=== PATIENT | female | born 1960 | race African-American/Black ===

== ENCOUNTER 2024-08-07 07:09 | Inpatient (IN) | payer MEDICARE, SELFPAY ==
[2024-08-07] VITALS (19 sets, daily range): BP systolic 80–106; BP diastolic 56–88; PULSE 93–115; RESP 12–22; TEMP 36.4–36.9; O2SAT 94–99; BMI 18.8
--- NOTE | 2024-08-07 | ECHO_ITS ---
Patient Info Name: Madison Youssef Age: 64 years : 1960 Gender: Female Ht: 70 in Wt: 131 lbs BSA: 1.70 m2 HR: 102 bpm BP: 93 / 70 mmHg Heart Rhythm: Tachycardia Technical Quality: Fair Exam Date: 08/07/2024 3:10 PM Exam Location: Echo Lab Patient Status: Inpatient Admit Date: 08/07/2024 Staff Ordering Physician: Kimberly Warren APRN Forensic Identification Specialist: Mary Ellen Ramos RDCS Attending Provider: Chaparro Oakley MD Referring Physician: Kelvin GERARD; Exam Type: CA echo doppler color flow Study Info Indications - Pulmonary embolis - SOB Complete two-dimensional, color flow and Doppler transthoracic echocardiogram is performed. Summary 1. Left ventricular chamber dimension is normal. 2. Left ventricular systolic function is normal, estimated at 60-65%. 3. There is moderately increased left ventricular wall thickness. 4. The left ventricular diastolic function is grade I diastolic dysfunction. 5. Right ventricular chamber dimension is normal. 6. Right ventricular systolic function is normal. 7. There is mild tricuspid valve regurgitation. 8. Left pleural effusion present. Left Ventricle Left ventricular chamber dimension is normal. Left ventricular systolic function is normal, estimated at 60-65%. There is moderately increased left ventricular wall thickness. The left ventricular diastolic function is grade I diastolic dysfunction. Right Ventricle Right ventricular chamber dimension is normal. Right ventricular systolic function is normal. Left Atria Left atrial chamber dimension is normal. Right Atria Right atrial chamber dimension is normal. Atrial Septum Intact interatrial septum visualized by color flow imaging. Aortic Valve The aortic valve is trileaflet. There is no aortic valve stenosis. There is no aortic valve regurgitation. Pulmonic Valve The pulmonic valve is not well visualized. Mitral Valve There is trace mitral valve regurgitation. Tricuspid Valve There is mild tricuspid valve regurgitation. Pericardium/Pleural Left pleural effusion present. There is no pericardial effusion. Inferior Vena Cava Normal inferior vena cava with >50% collapse upon inspiration consistent with normal right atrial pressure, 3 mmHg. Aorta The aortic root size at the sinus of Valsalva is normal. Left Ventricular Outflow Tract Name Value Normal LVOT 2D LVOT Diameter 1.9 cm LVOT Doppler LVOT Peak Gradient 3 mmHg LVOT Mean Gradient 2 mmHg LVOT VTI 16 cm LVOT VTI/AV VTI Ratio 1.0 LVOT Stroke Volume 46 ml LVOT CO 11.2 l/min LVOT CI 6.6 l/min/m2 Pulmonic Valve Name Value Normal PV Doppler PV Peak Gradient 2 mmHg Tricuspid Valve Name Value Normal TV Regurgitation Doppler TR Peak Velocity 282 cm/s TR Peak Gradient 32 mmHg Estimated PAP/RSVP RA Pressure 3 mmHg <=5 PA Systolic Pressure 35 mmHg <36 RV Systolic Pressure 35 mmHg <36 Aorta Name Value Normal Ascending Aorta Ao Root Diameter (MM) 3.1 cm Ao Root Diam Index (MM) 1.8 cm/m2 Aortic Valve Name Value Normal AV Doppler AV Peak Velocity 85 cm/s AV Peak Gradient 3 mmHg AV Mean Gradient 2 mmHg AV VTI 15 cm AV Area (Cont Eq VTI) 3.0 cm2 >=3.0 AV Area (Cont Eq Drew) 2.8 cm2 AV Regurgitation 2D LVOT Area 2.9 cm2 Ventricles Name Value Normal LV Dimensions 2D/MM IVS Diastolic Thickness (2D) 1.3 cm 0.6-1.0 IVS Diastole Thickness (MM) 3.1 cm 0.6-0.9 LVID Diastole (2D) 3.4 cm 3.8-5.2 LVIW Diastolic Thickness (2D) 1.1 cm 0.6-0.9 LVID Systole (2D) 2.6 cm 2.2-3.5 LVOT Diameter 1.9 cm LV Mass (2D Cubed) 127.58 g 67.00-162.00 LV Mass Index (2D Cubed) 75 g/m2 43-95 Relative Wall Thickness (2D) 0.67 LV Fractional Shortening/Ejection Fraction 2D/MM LV Fractional Shortening (2D) 24 % 27-45 LV EF (2D Teicheliezerz) 49 % 54-74 LV Diastolic Volume (4C MOD) 38 ml LV EF (4C MOD) 68 % LV Diastolic Volume (2C MOD) 31 ml LV EF (2C MOD) 64 % LV Diastolic Volume (BP MOD) 37 ml 46-106 LV Diastolic Volume Index (BP MOD) 22 ml/m2 29-61 LV Systolic Volume (BP MOD) 12 ml 14-42 LV Systolic Volume Index (BP MOD) 7 ml/m2 8-24 LV EF (BP MOD) 68 % 54-74 LV Diastolic Length (4C) 6.2 cm LV Systolic Length (4C) 4.7 cm LV Stroke Volume (4C MOD) 26 ml RV Dimensions 2D/MM RVID Diastole (2D) 3.6 cm 2.5-3.5 Atria Name Value Normal LA Dimensions LA Volume (4C A-L) 17 ml LA Volume (BP A-L) 21 ml RA Dimensions RA Area (4C) 10.8 cm2 <=18.0 Report Signatures
--- NOTE | ~2024-08-07 | US_ITS ---
BILATERAL LOWER EXTREMITY VENOUS ULTRASOUND Ordering provider: Kimberly Warren APRN History: . pe, rt leg pain, swelling . Comparison: None. FINDINGS: RIGHT LOWER EXTREMITY VEINS: --COMMON FEMORAL: Patent and free of thrombus. Normal compressibility, phasic flow and augmentation. --PROXIMAL SUPERFICIAL FEMORAL: Patent and free of thrombus. Normal compressibility, phasic flow and augmentation. --DISTAL SUPERFICIAL FEMORAL: Patent and free of thrombus. Normal compressibility, phasic flow and au gmentation. --POPLITEAL: Patent and free of thrombus. Normal compressibility, phasic flow and augmentation. --POSTERIOR TIBIAL: Thrombosed. --Peroneal: Thrombosed. LEFT LOWER EXTREMITY VEINS: --COMMON FEMORAL: Patent and free of thrombus. Normal compressibility, phasic flow and augmentation. --PROXIMAL SUPERFICIAL FEMORAL: Patent and free of thrombus. Normal compressibility, phasic flow and augmentation. --DISTAL SUPERFICIAL FEMORAL: Patent and free of thrombus. Normal compressibility, phasic flow and au gmentation. --POPLITEAL: Patent and free of thrombus. Normal compressibility, phasic flow and augmentation. --POSTERIOR TIBIAL: Thrombosed. --Peroneal: Thrombosis. IMPRESSION: Bilateral deep vein thrombosis. Reviewed, dictated and finalized at location A.
--- NOTE | ~2024-08-07 | XR_ITS ---
EXAMINATION: XR chest 1V portable DATE: 08/07/2024 08:08 INDICATION: Swelling. Cough. Dyspnea. TECHNIQUE: A single frontal view of the chest was obtained. COMPARISON: None. FINDINGS: There are lucencies in the lungs, consistent with emphysema. There are small pleural effusi ons. There are airspace opacities at the lung bases. No pneumothorax. The heart size is normal. IMPRESSION: 1. Airspace opacities at the lung bases, consistent with atelectasis versus pneumonia. 2. Small pleural effusions. 3. Emphysema. Reviewed, dictated and finalized at location B. IMPRESSION: 1. Airspace opacities at the lung bases, consistent with atelectasis versus pne umonia. 2. Small pleural effusions. 3. Emphysema.
--- NOTE | ~2024-08-07 | XR_ITS ---
XR abdomen gastric tube insert Ordering provider: Clotilde Lam MD History: . OG placement . Comparison: None. FINDINGS/impression: Nasogastric tube with the tip in the body of the stomach. The sidehole is near t o the gastroesophageal junction. Advancement by 3 cm is advised. Reviewed, dictated and finalized at location A.
--- NOTE | ~2024-08-07 | CT_ITS ---
EXAMINATION: CTA chest PE protocol DATE: 08/07/2024 10:00 INDICATION: Severe hypoxia. TECHNIQUE: Computed tomography angiography (CTA) of the chest was performed with 100 mL Omnipaque-350 intravenous contrast timed to evaluate the pulmonary arteries. Coronal maximum intensity projection 3D-reconstructions were created by the technologist. Automated exposure control and iterative reconst ruction technique were employed. The dose-length product was 152.14 mGy-cm. COMPARISON: Chest single view 08/07/2024 FINDINGS: There is moderate emphysema. There are small pleural effusions, right worse than left. Ther e is smooth septal thickening in the lungs, consistent with pulmonary edema. There are dependent airs pace opacities in the lungs with volume loss, likely atelectasis. There is a 5 mm stone in right uppe r lobe, likely benign. A calcified left lung nodule is consistent with old granulomatous disease. The heart size is normal. There are coronary artery calcifications. No pericardial effusion. There is a pulmonary embolus in right upper lobe. There is perihepatic ascites. There is mild chronic anterior w edging of multiple vertebral bodies. There is severe thoracic spondylosis. IMPRESSION: 1. Acute right upper lobe pulmonary embolus. I called this result to Dr. Pike. 2. Mild pulmonary edema with small pleural effusions. 3. Moderate emphysema. 4. Perihepatic ascites. Reviewed, dictated and finalized at location B.
--- NOTE | ~2024-08-07 | CT_ITS ---
CLINICAL INDICATION: Worsening hypoxia with known right upper lobe pulmonary embolus. COMPARISON: 08/07/2024. TECHNIQUE: Computed tomographic angiography (CTA) of the chest was performed, along with multiple con tiguous axial images of the abdomen and pelvis with 100 mL Omnipaque-350 intravenous contrast. The do se-length product was 621.45 mGy-cm. Maximum intensity projection 3D-reconstructions of the aorta and other arteries were constructed by the technologist on a separate workstation. FINDINGS/OBSERVATIONS: PULMONARY ARTERIES: Redemonstration of a filling defect within the posterior segmental branch of the right upper lobe pulmonary artery. The truncus anterior is patent. No additional filling defects are demonstrated. The main pulmonary artery is not enlarged. THORACIC AORTA: No aneurysmal dilatation or dissection is present. The great vessels are intact LUNGS: Redemonstration of bilateral pleural effusions, with interval increase of the right-sided pleu ral effusion, when compared with prior. Interval development of consolidation of the right lower lobe, with air bronchograms. Panlobular emphysematous disease is redemonstrated. Decreased lung volume within the right hemithorax (secondary to increased pleural effusion), availabl e for perfusion. MEDIASTINUM: No morphologically suspicious or pathologically enlarged lymph nodes are identified with in the mediastinum or bilateral axilla. BONES OF THE CHEST: No acute fracture. No significant degenerative disease. No lytic or blastic lesions. HEART: The heart is of normal size, without pericardial effusion. LIVER: Perihepatic fluid is now identified, increased from previous days examination. The liver is not enlarged measuring 17 cm in longitudinal dimension. GALLBLADDER AND BILIARY SYSTEM: Interval development of gallbladder distention, (not included on the previous examination) with calci fied layering stones PANCREAS: The pancreas enhances homogeneously without ductal dilatation. SPLEEN: The spleen enhances homogeneously and is not enlarged measuring 8 cm in longitudinal dimension. KIDNEYS: The bilateral kidneys enhance symmetrically without hydronephrosis or renal calculi. ADRENAL GLANDS: Unremarkable. GASTROINTESTINAL TRACT: Fecal stasis distending the rectum. VASCULATURE: No aneurysmal dilatation or significant stenosis. The inferior vena cava is slit like consistent with severe hypovolemia. LYMPH NODES: No pathologically enlarged or morphologically suspicious lymph nodes within the retroperitoneum or at the root of the mesentery. PELVIC STRUCTURES: The bladder is massively distended extending almost to the level of the umbilicus. Likely originating within the left hemipelvis is a fluid collection measuring 4.6 x 8.0 x 9.5 cm (ant erior to posterior x medial to lateral x cranial to caudal dimension). BODY WALL AND MUSCULOSKELETAL: Interval development of significant anasarca, when compared with previous days examination. Degenerat leigh disease within the lumbosacral spine. IMPRESSION: Worsening of the bilateral pleural effusions when compared with previous days examination. Stable pulmonary embolus. Interval development of consolidation of the entirety of the right middle and right lower lobes. Interval development of significant anasarca. Fluid collection originating within the left hemipelvis, of uncertain origin. Massive bladder distention for which urgent decompression is recommended. Cholelithiasis, as well as gallbladder distention. Reviewed, dictated and finalized at location A. IMPRESSION: Worsening of the bilateral pleural effusions when compared with previous days e xamination. Stable pulmonary embolus. Interval development of consolidation of the entirety of the right middle and r ight lower lobes. Interval development of significant anasarca. Fluid collection originating within the left hemipelvis, of uncertain origin. Massive bladder distention for which urgent decompression is recommended. Cholelithiasis, as well as gallbladder distention.
--- NOTE | 2024-08-07 07:14 | ECG_ITS ---
Test Date: 2024-08-07 07:17:06 Measurements Intervals [place] Rate: 102 P: 18 [place]: 122 QRS: -7 QRSD: 65 T: 0 QT: 317 QTc: 414 Interpretive Statements PROBABLE SINUS TACHYCARDIA LOW QRS VOLTAGE [QRS DEFLECTION < 0.5/1.0 mV IN LIMB/CHEST LEADS] PROBABLE ANTERIOR MYOCARDIAL INFARCTION , OF INDETERMINATE AGE [35 ms Q WAVE IN V3/V4] BASELINE ARTIFACT LIMITS INTERPRETATION No previous ECG available for comparison Electronically Signed On 08-08-2024 16:35:34 CDT by Alvaro Rodriguez M.D.
--- NOTE | 2024-08-07 07:16 | ED.SOB ---
HPI - SOB/Dyspnea General Chief Complaint: Shortness of Breath/Dyspnea Stated Complaint: edema Time Seen by Provider: 08/07/24 07:15 Source: patient and EMS Mode of arrival: EMS Limitations: no limitations History of Present Illness HPI Narrative: 64 years old female came from skilled nursing by ambulance because her chest x-ray this morning showed right pleural effusion. Patient is telling me that she been having intermittent coughing for long time. Currently she denies any fever, chills, nausea, vomiting, chest pain or shortness of breath Related Data Home Medications ?Medication ?Instructions ?Recorded ?Confirmed ?Last Taken ?Type acetaminophen 325 mg tablet (Aphen) 650 mg PO ONCE PRN fever or pain 08/07/24 08/07/24 Unknown History arginine (L-arginine) ea PO .3 x a day at meals wound to 08/07/24 Unknown History left posterior thigh aspirin 81 mg chewable tablet 81 mg PO DAILY 08/07/24 08/07/24 Unknown History (Children's Aspirin) carvedilol 6.25 mg tablet 6.25 mg PO BID 08/07/24 08/07/24 Unknown History cetirizine 10 mg capsule (All Day 10 mg PO DAILY 08/07/24 08/07/24 Unknown History Allergy (cetirizine)) folic acid 1 mg tablet 1 mg PO DAILY 08/07/24 08/07/24 Unknown History gabapentin 100 mg capsule 100 mg PO TID polyneuropathy 08/07/24 08/07/24 Unknown History hydrocodone 5 mg-acetaminophen 325 1 tablet PO Q4H PRN pain 08/07/24 08/07/24 Unknown History mg tablet ondansetron 4 mg disintegrating 4 mg PO Q6H PRN nausea/vomiting 08/07/24 08/07/24 Unknown History tablet Allergies Allergy/AdvReac Type Severity Reaction Status Date / Time No Known Allergies Allergy Verified 08/07/24 07:37 Review of Systems Review of Systems: All systems reviewed & are unremarkable except as noted in HPI and below Exam Narrative: General appearance: Well-developed, well-nourished Skin: Normal color, 2 decubitus ulcers at the back of the right thigh, with dressing on, wrinkled skin of the lower legs bilaterally indicating resolving previous edema Head: Normocephalic, nontraumatic Eyes: Clear conjunctiva ENT: Oropharynx normal, ears normal, nose normal Neck: Supple, nontender Chest and respiratory: Airway patent, no respiratory distress, no accessory muscle use Heart: Regular rate/rhythm Abdomen: Soft, nontender, no organomegaly, quiet bowel sounds Vascular: Normal peripheral pulses, normal capillary refill. Musculoskeletal: Normal range of motion, nontender back Neurologic: Alert and oriented ?3, [employer] is normal as tested, no gross motor deficit Course Vital Signs Vital signs: Vital Signs Pulse Rate 106 H 08/07/24 07:15 Respiratory Rate 19 08/07/24 07:15 Temperature 36.4 C 08/07/24 10:04 Pulse Rate 105 H 08/07/24 10:04 Respiratory Rate 14 08/07/24 10:04 Blood Pressure 105/79 08/07/24 10:04 Pulse Oximetry 94 08/07/24 10:04 Oxygen Delivery Room Air 08/07/24 09:05 MDM - SOB/Dyspnea MDM Narrative Medical decision making narrative: patient referred to the emergency room from skilled nursing because chest x-ray this morning showed small right pleural effusion Patient is asymptomatic. Vital signs showing heart rate of 103 otherwise within normal limit Physical examination showing decubitus ulcers the back of the right thigh otherwise insignificant Differential diagnosis include pleural effusion secondary to CHF, pneumonia, PULMONARY EMBOLISM, chronic specially patient never been to our facility before BLOOD WORKUP TODAY INCLUDES CBC, CMP, BNP, TROPONIN SHOWED HEMOGLOBIN 9.9, SODIUM 133, ANION GAP -1, CALCIUM 7.2, ALKALINE PHOSPHATASE IS 157, BNP 989 TOTAL PROTEIN 5.0, ALBUMIN 1.6 CHEST X-RAY ATELECTASIS VERSUS PNEUMONIA, PLEURAL EFFUSION, CTA PULMONARY SHOWED RIGHT UPPER LOBE PULMONARY EMBOLISM DIAGNOSIS CHF, PULMONARY EMBOLISM, ACUTE HYPOXIC RESPIRATORY FAILURE Differential Diagnosis Differential diagnosis: Likely other (As above) Medical Records Attestation: I reviewed the patient's medical records. Lab Data Attestation: I reviewed the patient's lab results. 08/07/24 07:26 08/07/24 07:26 Labs: Lab Results 08/07/24 08/07/24 Range/Units 07:26 08:12 WBC 6.9 (4.5-10.0) K/mm3 RBC 2.85 L (4.2-5.4) M/mm3 Hgb 9.9 L (12.0-15.0) g/dL Hct 28.2 L (37.0-47.0) % MCV 98.9 (80-100) fl MCH 34.7 H (26-34) pg MCHC 35.1 (32-36) g/dl RDW 13.7 (11.5-14.5) % Plt Count 324 (150-375) k/mm3 MPV 9.3 (7.4-10.4) fl Immature Gran % (Auto) 0.4 (0-0.5) % Neut % (Auto) 48.9 (45.5-73.1) % Lymph % (Auto) 40.3 (18.3-44.2) % [place] % (Auto) 8.4 (2.6-8.5) % Eos % (Auto) 1.7 (0-4.4) % Baso % (Auto) 0.3 (0.2-1.2) % Lymph # (Auto) 2.78 (0.9-3.2) K/mm3 [place] # (Auto) 0.6 (0.1-0.6) K/mm3 Eos # (Auto) 0.1 (0-0.3) K/mm3 Baso # (Auto) 0.0 (0.0-0.1) K/mm3 Abs Immat Gran (auto) 0.03 (0.00-0.031) K/mm3 Absolute Neuts (auto) 3.4 (1.3-6.7) K/mm3 Absolute Nucleated RBC 0.000 (0.0-0.012) K/mm3 Nucleated RBC % 0.0 (0.0-0.2) % PT 15.8 H (11.1-14.7) Seconds INR 1.2 APTT 38.5 H (22.3-36.8) Seconds Methemoglobin 0.2 (0-1.5) %THb Sodium 133 L (137-145) mmol/L Potassium 3.6 (3.4-5.0) mmol/L Chloride 104 (98-107) mmol/L Carbon Dioxide 30 (22-30) mmol/L Anion Gap -1 L (4-12) mmol/L BUN 10 (7-17) mg/dL Creatinine 0.35 L (0.7-1.0) mg/dL Estim Creat Clear Calc 158 ml/min Estimated GFR > 60 (59 - ) Glucose 89 (65-110) mg/dL Calcium 7.2 L (8.4-10.2) mg/dL Magnesium 2.1 (1.6-2.3) mg/dL Total Bilirubin 0.8 (0.2-1.3) mg/dL AST 26 (14-36) U/L ALT 28 (6-35) U/L Alkaline Phosphatase 157 H (38-126) U/L Troponin I < 0.012 (0.000-0.034) ng/mL NT-Pro-B Natriuret Pep 989 H (19.9-100) pg/mL Total Protein 5.0 L (6.3-8.2) g/dL Albumin 1.6 L (3.5-5.1) g/dL ABG Data ABG results: 08/07/24 08/07/24 07:45 08:12 Puncture Site Left radial Right radial ABG pH 7.513 H* 7.538 H* ABG pCO2 27.7 L 29.8 L ABG pO2 48.1 L* 48.9 L* ABG PO2/FiO2 Ratio 2.29 2.33 ABG HCO3 21.8 L 24.8 ABG O2 Saturation 88.4 L 89.5 L ABG O2 Content 11.2 L 12.0 L ABG Base Excess -0.5 2.6 A-a Gradient 68.5 65.1 Oxyhemoglobin 82.7 L* 84.5 L* Carboxyhemoglobin 0.6 Reduced Hemoglobin 14.7 H Total Hemoglobin 9.6 L 10.1 L O2 Delivery Device Room air Room air O2 Liters/Min Not Reportable Not Reportable FiO2 21 21 Imaging Data Radiologist's impression: Impressions Chest X-Ray 08/07/24 08:09 IMPRESSION: 1. Airspace opacities at the lung bases, consistent with atelectasis versus pneumonia. 2. Small pleural effusions. 3. Emphysema. Chest CTA 08/07/24 10:03 IMPRESSION: 1. Acute right upper lobe pulmonary embolus. I called this result to Dr. Pike. 2. Mild pulmonary edema with small pleural effusions. 3. Moderate emphysema. 4. Perihepatic ascites. ECG Data EKG #1: Attestation: I personally reviewed and interpreted this ECG as follows: ECG completion date: 08/07/24 ECG completion time: 07:19 Interpretation: Sinus tachycardia at 1:00 a.m. 2 beats per minute with occasional PVCs, low QRS voltage, poor R-wave progression, probable anterior myocardial infarction of indeterminate age, abnormal EKG, no old EKG available for comparison Critical Care Time Critical Care Time Critical Care Time: No Discharge Plan Discharge Clinical Impression: Pulmonary embolism, Congestive heart failure, Acute hypoxic respiratory failure Patient Disposition: Still a Patient Condition: Stable Patient Language: Portuguese Prescriptions: No Action acetaminophen [Aphen] 325 mg tablet 650 mg PO ONCE PRN (Reason: fever or pain) arginine (L-arginine) Powder PO .3 x a day at meals aspirin [Children's Aspirin] 81 mg tablet,chewable 81 mg PO DAILY carvedilol 6.25 mg tablet 6.25 mg PO BID Rx Instructions: must administer with a meal/food All Day Allergy (cetirizine) 10 mg capsule 10 mg PO DAILY folic acid 1 mg tablet 1 mg PO DAILY gabapentin 100 mg capsule 100 mg PO TID hydrocodone-acetaminophen 5-325 mg tablet 1 tablet PO Q4H PRN (Reason: pain) ondansetron 4 mg tablet,disintegrating 4 mg PO Q6H PRN (Reason: nausea/vomiting) Follow-up/Referrals: UNKNOWN,DOCTOR [Primary Care Provider] -
[2024-08-07 07:31] LABS: Basophils Percent Auto 0.3 % (0.2-1.2); Eosinophils Absolute Auto 0.1 K/mm3 (0-0.3); Eosinophils Percent Auto 1.7 % (0-4.4); Hematocrit 28.2 % (37.0-47.0); Hemoglobin 9.9 g/dL (12.0-15.0); Immature Granulocyte Absolute 0.03 K/mm3 (0.00-0.031); Immature Granulocyte Percent A 0.4 % (0-0.5); Lymphocytes Absolute Auto 2.78 K/mm3 (0.9-3.2); Lymphocytes Percent Auto 40.3 % (18.3-44.2); Mean Corpuscular HGB Conc 35.1 g/dl (32-36); Mean Corpuscular Hemoglobin 34.7 pg (26-34); Mean Corpuscular Volume 98.9 fl (80-100); Mean Platelet Volume 9.3 fl (7.4-10.4); Monocytes Absolute Auto 0.6 K/mm3 (0.1-0.6); Monocytes Percent Auto 8.4 % (2.6-8.5); Neutrophils Absolute Auto 3.4 K/mm3 (1.3-6.7); Neutrophils Percent Auto 48.9 % (45.5-73.1); Platelet Count Result 324 k/mm3 (150-375); Red Blood Count 2.85 M/mm3 (4.2-5.4); Red Cell Distribution Width 13.7 % (11.5-14.5); White Blood Count 6.9 K/mm3 (4.5-10.0)
--- OUTSIDE RECORDS SUMMARY | 2024-08-07 07:32 | XMS_ITS | Clinical Summary ---
Author Organization [facility] Address [address] [place] [id number] Care Team Providers Care Punch Machine Operator Name Role Phone Ashley Guzman MD Primary Care Provider [phone] Allergies No known active allergies Medications carvedilol (COREG) 6.25 MG tabletIndicati ons:Hypertensi on Take 1 tablet (6.25 mg total) by mouth 2 (two) times daily. Indications: High Blood Pressure 07/27/19 23 Active acetaminophen (TYLENOL) 325 MG tabletIndicati ons:Pain Take 2 tablets (650 mg total) by mouth every 4 (four) hours as needed for Pain. Indications: Pain 10/28/19 23 Active aspirin 81 MG chewable tabletIndicati ons:heart health Chew 1 tablet (81 mg total) by mouth daily. Indications: heart health 10/28/19 23 Active gabapentin (NEURONTIN) 100 MG capsule Take 1 capsule (100 mg total) by mouth 3 (three) times daily. 05/26/20 24 Active folic acid (FOLVITE) 1 MG tablet Take 1 tablet (1 mg total) by mouth daily. 30 tablet 07/17/19 25 Active HYDROcodone-ac etaminophen (NORCO) 5-325 MG tabletIndicati ons:Acute Pain < 3 Day Supply Take 1 tablet by mouth every 4 (four) hours as needed. Indications: Acute Pain < 3 Day Supply 10 tablet 07/17/19 25 Active furosemide (LASIX) 20 MG tabletIndicati ons:Diuretic Therapy Take 1 tablet (20 mg total) by mouth daily. Indications: Treatment with Diuretic Therapy 10/11/19 23 025 Discontinu ed(Stop Taking at Discharge) potassium chloride CR (K-TAB) 10 MEQ Tab CR tabletIndicati ons:Potass Supplement or Potass-Sparing Diuretic Tx (Inactive) Take 1 tablet by mouth daily. Indications: Potassium Supplement or Potassium-Sparing Diuretic Therapy 10/11/19 Discontinu ed(Error) SODIUM CHLORIDE ORIndications: Hyponatremia Take 1 g by mouth 2 (two) times a day. Indications: Low Concentration of Sodium in the Blood 11/14/19 Discontinu ed(Error) venlafaxine XR (EFFEXOR XR) 37.5 MG 24 hr capsuleIndicat ions:Depressed Mood Take 37.5 mg by mouth daily. Indications: Lowered Mood 08/08/19 025 Discontinu ed(Error) mupirocin (BACTROBAN) 2 % ointmentIndica tions:Wound Care Apply 1 each topically daily. Indications: Wound Care 12/12/19 025 Discontinu ed(Error) HYDROcodone-ac etaminophen (NORCO) 5-325 MG tabletIndicati ons:Acute Pain < 7 Day Supply Take 1 tablet by mouth every 4 (four) hours as needed for Pain. Indications: Acute Pain < 7 Day Supply 01/12/20 025 Discontinu ed(Error) PROMETHAZINE-D M ORIndications: Cough Take 5 mLs by mouth every 4 (four) hours as needed (cough). Indications: Cough 01/12/20 025 Discontinu ed(Error) polyethylene glycol (GLYCOLAX) packet Take 240 mLs (17 g total) by mouth daily for 14 days. Dissolve powder in 240 mL water 14 each 07/17/19 25 Active Problems Problem Noted Date Diagnosed Date UTI (urinary tract infection) 07/14/2024 Generalized weakness 07/12/2024 Hyponatremia 10/25/2022 Encounters Date Type Department Care Team Description 07/12/2024 12:56 PM HOSPITAL SUPERVISOR - 07/17/2024 1:59 PM HOSPITAL SUPERVISOR Hospital Encounter [facility] Med/Surg [address] [place] [address] Baeza, Delta N, PA BrazeltonPrincess PA Alexander, Kaci M, DO Martens, Jennifer L, NP Littlejohn, Mary C, Dar Glover MD Leg Pain Discharge Disposition: Senior Living Facility 07/12/2024 Travel from Last 3 Months Social History Tobacco Use Types Packs/Day Years Used Date Smoking Tobacco: Every Day Cigarettes Smokeless Tobacco: Never Alcohol Use Standard Drinks/Week Comments Yes 0 (1 standard drink = 0.6 oz pur e alcohol) <1/week OASIS D0700: Social Isolation Answer Da te Recorded Frequency of experiencing loneliness or isolatio n Never 02/22/2023 OASIS A1250: Transportation Answer Date Recorded Lack of Transportation (Medical) No 02/22/2023 Lack of Transportation (Non-Medical) No 02/22/2023 Patient Unable or Declines to Respond No 02/22/2023 OASIS B1300: Health Literacy Answer Viraj e Recorded Frequency of needing help to read materials from doctor or pharmacy Rarely 02/22/2023 [facility] Utilities Answer Date Recorded In the past 12 months has [facility] [employer], oil, or water [employer] threatened to shut off services in your home? No 07/12/2024 Humiliation, Afraid, Rape, and Kick questionnair e Answer Date Recorded Within the last year, have y ou been afraid of your partner or ex-partner? No 07/12/2024 Within the last year, have y ou been humiliated or emotionally abused in other ways by your partner or ex-partner? No Within the last year, have y ou been kicked, hit, slapped, or otherwise physically hurt by your partner or ex-partner? No 07/12/2024 Within the last year, have y ou been raped or forced to have any kind of sexual activity by your partner or ex-partner? No 07/12/2024 Overall Financial Resource Strain (CARDIA) Answe r Date Recorded How hard is it for you to pa y for the very basics like food, housing, medical care, and heating? Not hard at all 07/12/2024 Hunger Vital Sign Answer Date Recorded Within the past 12 months, y ou worried that your food would run out before you got the money to buy more. Never true 07/12/19 25 Within the past 12 months, t he food you bought just didn't last and you didn't have money to get more. Never true 07/12/2024 PRAPARE - Transportation Answer Date Re corded In the past 12 months, has l ack of transportation kept you from medical appointments or from getting medications? No 06/28 In the past 12 months, has l ack of transportation kept you from meetings, work, or from getting things needed for daily living? No 07/12/2024 Housing Stability Vital Sign Answer Viraj e Recorded In the last 12 months, was t here a time when you were not able to pay the mortgage or rent on time? No 07/12/2024 In the past 12 months, how m any times have you moved where you were living? 0 07/12/2024 At any time in the past 12 m [facility], were you homeless or living in a [facility] (including now)? No 07/12/2024 Comments No Sex and Gender Information Value Date Recorded Sex Assigned at Female 07/12/2024 1:09 PM HOSPITAL SUPERVISOR Legal Sex Female 2:41 PM CDT Gender Identity Not on file Sexual Orientation Not on file Last Filed Vital Signs Vital Sign Reading Time Taken Comments Blood Pressure 91/60 07/17/2024 11:56 AM HOSPITAL SUPERVISOR Pulse 60 07/17/2024 11:56 AM HOSPITAL SUPERVISOR Temperature 36.8 C (98.2 F) 07/17/2024 11:56 AM HOSPITAL SUPERVISOR Respiratory Rate 18 07/17/2024 11:56 AM HOSPITAL SUPERVISOR Oxygen Saturation 98% 07/17/2024 11:56 AM HOSPITAL SUPERVISOR Inhaled Oxygen Concentration - - Weight 61.9 kg (136 lb 7.4 oz) 07/17/2024 3:56 A M HOSPITAL SUPERVISOR Height 177.8 cm (5' 10 ) 07/12/2024 1:05 PM HOSPITAL SUPERVISOR Body Mass Index 19.58 07/12/2024 1:05 PM HOSPITAL SUPERVISOR Plan of Treatment Health Maintenance Due Date Last Done Comments Colorectal Cancer Screening Colonoscopy (10 Years) 1960 Hepatitis C 02/28/1976 DTaP, Tdap and Td Vaccines (1 - Tdap) 1977 Mammogram Screening 1998 Zoster Vaccines (1 of 2) 02/28/2008 Annual Medicare Wellness Visit 2023 Dexa Scan (General) 2023 COVID-19 Vaccine ( season) 2024 01/29/2021, 01/08/2021 RSV Immunization or 60+ Years (1 - 1-dose 75+ series) 2033 Pneumococcal Vaccine: 65+ Years Completed 08/07/2022, 07/26/2016 Influenza Adult Completed 04/18/2024, 07/26, 06/04/2018, Additional history exists Meningococcal B Vaccine Aged Out No l onger eligible based on patient's age to complete this topic Meningococcal Vaccine Aged Out No tiff jose eligible based on patient's age to complete this topic RSV Immunizations Under 20 Months Aged Out No longer eligible based on patient's age to complete this topic Goals Goal Patient Goal Type Associated Problems Recent Progress Patient-Stated? 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 Procedure Name Priority Date/Time Associated Diagnosis Comments RESPIRATORY PCR PANEL 2 Routine 07/17/2024 10:28 AM HOSPITAL SUPERVISOR CBC W/DIFF AUTOMATED STAT 07/17/2024 9:31 AM HOSPITAL SUPERVISOR FREE T3 Routine 07/16/2024 11:39 AM HOSPITAL SUPERVISOR HEMOGLOBIN, GLYCOSYLATED Routine 07/16/2024 11:39 AM HOSPITAL SUPERVISOR CBC W/DIFF AUTOMATED Routine 07/16/2024 11:39 AM HOSPITAL SUPERVISOR BASIC METABOLIC PANEL Routine 07/16/2024 11:39 AM HOSPITAL SUPERVISOR BASIC METABOLIC PANEL Routine 07/14/2024 11:45 AM HOSPITAL SUPERVISOR CBC W/DIFF AUTOMATED Routine 07/14/2024 11:45 AM HOSPITAL SUPERVISOR USV MEHDI DUPLEX LOW EXT ANGELITA STAT 07/14/2024 9:46 AM HOSPITAL SUPERVISOR TYPE & SCREEN Routine 07/13/2024 10:27 AM HOSPITAL SUPERVISOR TROPONIN, QUANT Routine 07/13/2024 10:27 AM HOSPITAL SUPERVISOR RETICULOCYTE CT, AUTO Routine 07/13/2024 10:27 AM HOSPITAL SUPERVISOR FERRITIN Routine 07/13/2024 10:27 AM HOSPITAL SUPERVISOR IRON SAT PANEL (IRON,IBC,%SAT) Routine 07/13/2024 10:27 AM HOSPITAL SUPERVISOR FOLIC ACID SERUM Routine 07/13/2024 10:2 7 AM HOSPITAL SUPERVISOR VITAMIN B-12 Routine 07/13/2024 10:27 AM HOSPITAL SUPERVISOR COMPREHENSIVE METABOLIC PANEL Routine 07/13/2024 10:27 AM HOSPITAL SUPERVISOR CBC W/DIFF AUTOMATED Routine 07/13/2024 10:27 AM HOSPITAL SUPERVISOR CALCIUM, IONIZED BG Routine 07/13/2024 1 :07 AM HOSPITAL SUPERVISOR OSMOLALITY, BLOOD STAT 07/13/2024 12: 46 AM HOSPITAL SUPERVISOR D-DIMER, QUANTITATIVE Routine 07/12/2024 11:40 PM HOSPITAL SUPERVISOR THYROXINE, FREE (FT4) STAT 07/12/2024 11:40 PM HOSPITAL SUPERVISOR TROPONIN, QUANT TIMED 07/12/2024 11:40 PM HOSPITAL SUPERVISOR TSH W/REFLEX STAT 07/12/2024 11:40 PM HOSPITAL SUPERVISOR CK (CPK) STAT 07/12/2024 11:40 PM HOSPITAL SUPERVISOR PHOSPHORUS, INORGANIC PHOSPHATE STAT 07/12/2024 11:40 PM HOSPITAL SUPERVISOR MAGNESIUM STAT 07/12/2024 11:40 PM HOSPITAL SUPERVISOR RESPIRATORY PCR PANEL 2 STAT 07/12/2024 8:[address] HEAD WO CON STAT 07/12/2024 6:08 PM HOSPITAL SUPERVISOR URINE BACTERIA CULTURE Routine 3:21 PM HOSPITAL SUPERVISOR SODIUM URINE RANDOM Routine 07/12/2024 3 :21 PM HOSPITAL SUPERVISOR OSMOLALITY, URINE Routine 07/12/2024 3:2 1 PM HOSPITAL SUPERVISOR HC URINALYSIS AUTO W/O MICRO STAT 07/12/2024 3:21 PM HOSPITAL SUPERVISOR TROPONIN, QUANT STAT 07/12/2024 2:18 PM HOSPITAL SUPERVISOR PRO-BRAIN NATRIURETIC PEPTIDE STAT 07/12/2024 2:18 PM HOSPITAL SUPERVISOR COMPREHENSIVE METABOLIC PANEL STAT 07/12/2024 2:18 PM HOSPITAL SUPERVISOR ECG 12-LEAD Routine 07/12/2024 2:06 PM HOSPITAL SUPERVISOR XR CHEST PORTABLE STAT 07/12/2024 1:5 2 PM HOSPITAL SUPERVISOR CBC W/DIFF AUTOMATED STAT 07/12/2024 1:28 PM HOSPITAL SUPERVISOR POCT GLUCOSE - CARROLL DOCKED DEVICE Routine 07/12/2024 12:56 PM HOSPITAL SUPERVISOR from Last 3 Months Results * RESPIRATORY PCR PANEL 2 (07/17/2024 10:28 AM HOSPITAL SUPERVISOR) Only the most recent of2 resultswithin the time period is included. ADENOVIRUS PCR (RESP) NOT DETECTED NOT DETECTED 07/17/2024 12:25 PM HOSPITAL SUPERVISOR [facility] CORONAVIRUS 229E PCR (RESP) NOT DETECTED NOT DETECTED 07/17/2024 12:25 PM HOSPITAL SUPERVISOR [facility] CORONAVIRUS HKU1 PCR (RESP) NOT DETECTED NOT DETECTED 07/17/2024 12:25 PM HOSPITAL SUPERVISOR [facility] CORONAVIRUS NL63 PCR (RESP) NOT DETECTED NOT DETECTED 07/17/2024 12:25 PM HOSPITAL SUPERVISOR [facility] CORONAVIRUS OC43 PCR (RESP) NOT DETECTED NOT DETECTED 07/17/2024 12:25 PM [facility] METAPNEUMOVIRUS PCR (RESP) NOT DETECTED NOT DETECTED 07/17/2024 12:25 PM [facility] RHINOVIRUS/ENTEROV IRUS PCR (RESP) NOT DETECTED NOT DETECTED 07/17/2024 12:25 PM HOSPITAL SUPERVISOR [facility] INFLUENZA A PCR (RESP) NOT DETECTED NOT DETECTED 07/17/2024 12:25 PM [facility] INFLUENZA B PCR (RESP) NOT DETECTED NOT DETECTED 07/17/2024 12:25 PM [facility] PARAINFLUENZA 1 PCR (RESP) NOT DETECTED NOT DETECTED 07/17/2024 12:25 PM [facility] PARAINFLUENZA 2 PCR (RESP) NOT DETECTED NOT DETECTED 07/17/2024 12:25 PM [facility] PARAINFLUENZA 3 PCR (RESP) NOT DETECTED NOT DETECTED 07/17/2024 12:25 PM [facility] PARAINFLUENZA 4 PCR (RESP) NOT DETECTED NOT DETECTED 07/17/2024 12:25 PM [facility] RSV PCR (RESP) NOT DETECTED NOT DETECTED 07/17/2024 12:25 PM [facility] B PARAPERTUSIS PCR (RESP) NOT DETECTED NOT DETECTED 07/17/2024 12:25 PM HOSPITAL SUPERVISOR [facility] BORDETELLA PERTUSSIS PCR (RESP) NOT DETECTED NOT DETECTED 07/17/2024 12:25 PM [facility] CHLAMYDOPHILA PNEUMONIAE PCR (RESP) NOT DETECTED NOT DETECTED 07/17/2024 12:25 PM [facility] MYCOPLASMA PNEUMONIAE PCR (RESP) NOT DETECTED NOT DETECTED 07/17/2024 12:25 PM HOSPITAL SUPERVISOR [facility] CORONAVIRUS SARS COV 2 PCR (RESP) NOT DETECTED NOT DETECTED 07/17/2024 12:25 PM [facility] NASOPHARYNGEAL SWAB / Unknown 07/17/2024 10:28 AM HOSPITAL SUPERVISOR Denise TEE MICROBIOLOGY - GENERAL OR DERABLES Final Result [facility] [address] [place] [address], [place] [phone] * (ABNORMAL) CBC W/DIFF AUTOMATED (07/17/2024 9:31 AM HOSPITAL SUPERVISOR) Only the most recent of5 resultswithin the time period is included. WBC 6.13 4.5 - 11.0 x10'3/uL 07/17/2024 9:58 AM [facility] RBC 2.63(L) 4.20 - 5.40 x10'6/uL 07/17/2024 9:58 AM [facility] HGB 9.4(L) 12.0 - 16.0 G/DL 07/17/2024 9:58 AM [facility] HCT 26.7(L) 38.0 - 48.0 % 07/17/2024 9:58 AM [facility] MCV 101.5(H) 81.0 - 99.0 FL 07/17/2024 9:58 AM [facility] MCH 35.7(H) 27.0 - 31.0 PG 07/17/2024 9:58 AM [facility] MCHC 35.2 32.0 - 36.0 G/DL 07/17/2024 9:58 AM [facility] RDW 15.0(H) 11.5 - 14.5 % 07/17/2024 9:58 AM [facility] PLT 252 130 - 400 x10'3/uL 07/17/2024 9:58 AM [facility] MPV 9.6 9.3 - 12.2 FL 07/17/2024 9:58 AM [facility] DIFFERENTIAL TYPE AUTOMATED DIFFERENTIAL 07/17/2024 9:58 AM [facility] NEUTROPHILS % 65.5 % 07/17/2024 9:58 AM [facility] LYMPHOCYTES % 25.1 % 07/17/2024 9:58 AM [facility] MONOCYTES % 8.6 % 07/17/2024 9:58 AM [facility] EOSINOPHILS 0.3 % 07/17/2024 9:58 AM [facility] BASOPHILS 0.2 % 07/17/2024 9:58 AM [facility] IMMATURE GRANS % 0.3 % 07/17/19 9:58 AM [facility] ABS. NEUTROPHILS 4.01 1.80 - 7.70 x10'3/uL 07/17/2024 9:58 AM [facility] ABS. LYMPHOCYTES 1.54 1.00 - 4.80 x10'3/uL 07/17/2024 9:58 AM [facility] ABS. MONOCYTES 0.53 0.24 - 0.86 x10'3/uL 07/17/2024 9:58 AM [facility] ABS. EOSINOPHILS 0.02(L) 0.04 - 0.36 x10'3/uL 07/17/2024 9:58 AM [facility] ABS. BASOPHILS 0.01 0.01 - 0.08 x10'3/uL 07/17/2024 9:58 AM HOSPITAL SUPERVISOR [facility] ABS. IMMATURE GRANULOCYTES 0.02 0.00 - 0.49 x10'3/uL 07/17/2024 9:58 AM HOSPITAL SUPERVISOR [facility] 07/17/2024 9:31 AM HOSPITAL SUPERVISOR Denise Hernandezjohn [facility] Final Res ult [facility] [address] [place] [address], [place] [phone] * HEMOGLOBIN, GLYCOSYLATED (07/16/2024 11:39 AM HOSPITAL SUPERVISOR) HGB A1C 4.3 <5.7 % 07/18/2024 11:54 AM HOSPITAL SUPERVISOR [facility] Comment: No variants detected ADA GUIDELINES 5.7-6.4% INCREASED RISK FOR FUTURE DIABETES > OR = 6.5% DIABETES DIABETIC GOAL <7.0% ADDITIONAL ACTION SUGGESTED >8.0% National Glycohemoglobin Standardization Program (NGSP) [place] [address] ESTIMATED AVG GLUCOSE 77 mg/dL 07/18/2024 11:54 AM HOSPITAL SUPERVISOR [facility] 07/16/2024 11:3 9 AM HOSPITAL SUPERVISOR Denise Craven Donavan [facility] Final Res ult [facility] [address] [place] [address], [place] [phone] * (ABNORMAL) FREE T3 (07/16/2024 11:39 AM HOSPITAL SUPERVISOR) FREE T3 0.3(L) 2.18 - 3.98 PG/ML 07/16/2024 4:29 PM HOSPITAL SUPERVISOR [facility] 07/16/2024 11:3 9 AM HOSPITAL SUPERVISOR us Denise Go [facility] Final Res ult [facility] () [facility] [address] [place] [address], [place] [phone] * (ABNORMAL) BASIC METABOLIC PANEL (07/16/2024 11:39 AM HOSPITAL SUPERVISOR) Only the most recent of2 resultswithin the time period is included. GLUCOSE 107(H) 70 - 99 MG/DL 07/16/2024 12:32 PM HOSPITAL SUPERVISOR [facility] BUN 3(L) 7 - 18 MG/DL 07/16/2024 12:32 PM [facility] CREATININE S/P/B 0.44(L) 0.55 - 1.02 MG/DL 07/16/2024 12:32 PM HOSPITAL SUPERVISOR [facility] SODIUM S/P/B 133(L) 136 - 145 MMOL/L 07/16/2024 12:32 PM [facility] POTASSIUM S/P/B 4.0 3.5 - 5.1 MMOL/L 07/16/2024 12:32 PM [facility] CHLORIDE S/P/B 105 97 - 115 MMOL/L 07/16/2024 12:32 PM [facility] CO2 24.2 21 - 32 MMOL/L 07/16/2024 12:32 PM [facility] CALCIUM S/P/B 7.2(L) 8.5 - 10.1 MG/DL 07/16/2024 12:32 PM [facility] ANION GAP 3.8 2 - 10 MMOL/L 07/16/2024 12:32 PM [facility] BUN CREATININE RATIO 6.8 6 - 26 07/16/2024 12:32 PM HOSPITAL SUPERVISOR [facility] GFR ESTIMATE >90 >90 ML/MIN/1.7 3 M2 07/16/2024 12:32 PM HOSPITAL SUPERVISOR [facility] Comment: NOTE: eGFR is not calculated for patients <18 years of age or gender unknown. This is an estimated GFR calculation using the new CKD EPI creatinine equation without race and so does not require a correction factor for race. This estimated GFR should not be used for calculating drug doses. 07/16/2024 11:3 9 AM HOSPITAL SUPERVISOR Denise MAYNARDNP LABORATORY Final Res ult [facility] [address] [place] [address], * USV MEHDI DUPLEX LOW EXT ANGELITA (07/14/2024 9:46 AM HOSPITAL SUPERVISOR) Anatomical Region Laterality Modality Extremity Vascular Ultraso und 07/14/2024 9:20 AM HOSPITAL SUPERVISOR Narrative 07/16/2024 8:38 PM HOSPITAL SUPERVISOR VENOUS DUPLEX IMAGING BILATERAL LOWER EXTREMITY VASCULAR LAB Pat.Name: HAYLEE NIÑO Pat.ID: [id number] .Date: 07/14/2024 Refer.MD: Ashley Guzman Exam Time: 9:20:00 AM Study Type:GUICHO VS Venous Duplex Legs ANGELITA Age: 10 1960,64Y Sex: F Sonogrphr: Latrice Philippe, T Pat. Stat.:Inpatient Room: 309 History / Clinical:Bilateral leg weakness and swelling up to the mid thighs. Bed sores to her bottom. Unable to bear weight on her legs. No prior DVT. Procedures: Camargo scale, Color Doppler imaging, Doppler Spectral Analysis Race: B ++++++++++++++++++++++++++++++++++++ SUMMARY: ++++++++++++++++++++++++++++++++++++ Right leg: There are NO apparent, deep or superficial vein, ACUTE character venous filling defects visualized in the femoral, popliteal, deep calf or proximal saphenous veins. Resting venous flow is normal phasic proximally. Left leg: There are NO apparent, deep or superficial vein, ACUTE character venous filling defects visualized in the femoral, popliteal, deep calf or proximal saphenous veins. Resting venous flow is normal phasic proximally. Incidental finding: There is monophasic flow in the right popliteal artery distally. There is multiphasic flow in the left popliteal artery distally. There are enlarged lymph nodes visualized in the right groin. CONCLUSION: No evidence of deep vein thrombosis of the bilateral lower extremities. <Electronic Signature> 07/16/2024 08:38 PM Shay Johnson M.D. Procedure Note Shay Johnson MD - 07/16/2024 VENOUS DUPLEX IMAGING BILATERAL LOWER EXTREMITY VASCULAR LAB Pat.Name: HAYLEE NIÑO Pat.ID: [id number] .Date: 07/14/2024 Refer.MD: Ashley Guzman Exam Time: 9:20:00 AM Study Type:GUICHO VS Venous Duplex Legs ANGELITA Age: 10 1960,64Y Sex: F Sonogrphr: Latrice Philippe RVT Pat. Stat.:Inpatient Room: 309 History / Clinical:Bilateral leg weakness and swelling up to the mid thighs. Bed sores to her bottom. Unable to bear weight on her legs. No prior DVT. Procedures: Camargo scale, Color Doppler imaging, Doppler Spectral Analysis Race: B ++++++++++++++++++++++++++++++++++++ SUMMARY: ++++++++++++++++++++++++++++++++++++ Right leg: There are NO apparent, deep or superficial vein, ACUTE character venous filling defects visualized in the femoral, popliteal, deep calf or proximal saphenous veins. Resting venous flow is normal phasic proximally. Left leg: There are NO apparent, deep or superficial vein, ACUTE character venous filling defects visualized in the femoral, popliteal, deep calf or proximal saphenous veins. Resting venous flow is normal phasic proximally. Incidental finding: There is monophasic flow in the right popliteal artery distally. There is multiphasic flow in the left popliteal artery distally. There are enlarged lymph nodes visualized in the right groin. CONCLUSION: No evidence of deep vein thrombosis of the bilateral lower extremities. <Electronic Signature> 07/16/2024 08:38 PM Shay Johnson M.D. Mary Lou Shi APRN [place] [facility] Final Resul t * TYPE & SCREEN (07/13/2024 10:27 AM HOSPITAL SUPERVISOR) ABO/RH B POSITIVE 07/13/2024 11:54 AM HOSPITAL SUPERVISOR [facility] ANTIBODY SCREEN NEGATIVE 07/13/2024 11:54 AM HOSPITAL SUPERVISOR [facility] SAMPLE EXPIRATION 07/16/2024,2 359 07/13/2024 11:54 AM [facility] 07/13/2024 10:2 7 AM HOSPITAL SUPERVISOR Mary Lou Shi APRN BLOOD BANK TEST ORDERABLES Final Result [facility] [address] [place] [address], [place] [phone] * (ABNORMAL) IRON SAT PANEL (IRON,IBC,%SAT) (07/13/2024 10:27 AM HOSPITAL SUPERVISOR) IRON 74 50.0 - 170.0 MCG/DL 07/13/2024 11:41 AM HOSPITAL SUPERVISOR [facility] IRON BINDING CAPACITY 118(L) 250 - 450 MCG/DL 07/13/2024 11:41 AM HOSPITAL SUPERVISOR [facility] IRON SATURATION 63(H) 20 - 55 % 11:41 AM HOSPITAL SUPERVISOR [facility] 07/13/2024 10:2 7 AM HOSPITAL SUPERVISOR us Mary Lou Shi APRN LABORATORY Final Resul t [facility] [address] [place] [address], [place] [phone] * (ABNORMAL) VITAMIN B-12 (07/13/2024 10:27 AM HOSPITAL SUPERVISOR) VITAMIN B12 S/P/B 1,420(H) 254 - 1,320 PG/ML 07/13/2024 11:58 AM HOSPITAL SUPERVISOR [facility] 07/13/2024 10:2 7 AM HOSPITAL SUPERVISOR us Mary Lou Shi APRN LABORATORY Final Resul t Performing Organization Address [facility]/ZIP Co de Phone Number [facility] [address] [place] [address], [place] [phone] * (ABNORMAL) RETICULOCYTE CT, AUTO (07/13/2024 10:27 AM HOSPITAL SUPERVISOR) Pathologist [facility] RETICULOCYTE COUNT 3.3(H) 0.8 - 2.1 % 07/13/2024 11:28 AM HOSPITAL SUPERVISOR [facility] ABSOLUTE RETICULOCYTE 0.09 0.02 - 0.10 x10'6/uL 07/13/2024 11:28 AM HOSPITAL SUPERVISOR [facility] IMMATURE RETIC FRACTION 13.7 3.0 - 15.9 % 07/13/2024 11:28 AM HOSPITAL SUPERVISOR [facility] RETIC HGB 36.7(H) 28.0 - 35.0 PG 07/13/2024 11:28 AM HOSPITAL SUPERVISOR [facility] 07/13/2024 10:2 7 AM HOSPITAL SUPERVISOR us Mary Lou Shi GUIDANCE DIRECTOR LABORATORY Final Resul t [facility] [address] [place] [address], * (ABNORMAL) COMPREHENSIVE METABOLIC PANEL (07/13/2024 10:27 AM HOSPITAL SUPERVISOR) Only the most recent of2 resultswithin the time period is included. GLUCOSE 133(H) 70 - 99 MG/DL 07/13/2024 11:41 AM [facility] BUN 3(L) 7 - 18 MG/DL 07/13/2024 11:41 AM [facility] CREATININE S/P/B 0.48(L) 0.55 - 1.02 MG/DL 07/13/2024 11:41 AM [facility] [facility] SODIUM S/P/B 131(L) 136 - 145 MMOL/L 07/13/2024 11:41 AM [facility] POTASSIUM S/P/B 3.3(L) 3.5 - 5.1 MMOL/L 07/13/2024 11:41 AM [facility] CHLORIDE S/P/B 102 97 - 115 MMOL/L 07/13/2024 11:41 AM [facility] CO2 26.5 21 - 32 MMOL/L 07/13/2024 11:41 AM [facility] CALCIUM S/P/B 7.2(L) 8.5 - 10.1 MG/DL 07/13/2024 11:41 AM [facility] BILIRUBIN TOTAL S/P/B 0.4 0.2 - 1.2 MG/DL 07/13/2024 11:41 AM [facility] Comment: THIS ASSAY IS NOT RECOMMENDED FOR PATIENTS UNDERGOING TREATMENT WITH ELTROMBOPAG DUE TO THE POTENTIAL FOR FALSELY ELEVATED RESULTS. TOTAL PROTEIN S/P/B 4.4(L) 6.4 - 8.2 G/DL 07/13/2024 11:41 AM [facility] ALBUMIN S/P/B 1.1(L) 3.4 - 5.0 G/DL 07/13/2024 11:41 AM [facility] AST 12(L) 15 - 37 U/L 07/13/2024 11:41 AM [facility] ALT 15 14 - 55 U/L 07/13/2024 11:41 AM [facility] ALKALINE PHOSPHATASE S/P/B 91 50 - 136 U/L 07/13/2024 11:41 AM [facility] ANION GAP 2.5 2 - 10 MMOL/L 07/13/2024 11:41 AM [facility] BUN CREATININE RATIO 6.2 6 - 26 07/13/2024 11:41 AM [facility] A/G RATIO 0.3(L) 1.0 - 2.0 RATIO 07/13/2024 11:41 AM [facility] GFR ESTIMATE >90 >90 ML/MIN/1.7 3 M2 07/13/2024 11:41 AM [facility] Comment: NOTE: eGFR is not calculated for patients <18 years of age or gender unknown. This is an estimated GFR calculation using the new CKD EPI creatinine equation without race and so does not require a correction factor for race. This estimated GFR should not be used for calculating drug doses. 07/13/2024 10:2 7 AM HOSPITAL SUPERVISOR us Mary Lou Shi GUIDANCE DIRECTOR LABORATORY Final Resul t [facility] [address] [place] [address], [place] [phone] * (ABNORMAL) FOLIC ACID SERUM (07/13/2024 10:27 AM HOSPITAL SUPERVISOR) FOLATE 2.6(L) 3.1 - 17.5 NG/ML 07/13/2024 11:58 AM HOSPITAL SUPERVISOR [facility] 07/13/2024 10:2 7 AM HOSPITAL SUPERVISOR us Mary Lou Shi GUIDANCE DIRECTOR LABORATORY Final Resul t Performing Organization Address City/[facility] Co de Phone Number [facility] [address] [place] [address], [place] [phone] * TROPONIN, QUANT (07/13/2024 10:27 AM HOSPITAL SUPERVISOR) Only the most recent of3 resultswithin the time period is included. [facility] TROPONIN I HIGH SENSITIVITY 23 <54 ng/L 07/13/2024 11:41 AM HOSPITAL SUPERVISOR [facility] Comment: HIGH DOSES OF BIOTIN, TROPONIN-SPECIFIC AUTOANTIBODIES, AND ANTIBODY THERAPY CONTAINING HAMA MAY INTERFERE WITH THIS TEST RESULT. CORRELATION TO CLINICAL HISTORY AND PRESENTATION RECOMMENDED. 07/13/2024 10:2 7 AM HOSPITAL SUPERVISOR us Mary Lou Meza Jose Guadalupe GUIDANCE DIRECTOR LABORATORY Final Resul t Performing Organization Address [facility] Co de Phone Number [facility] [address] [place] [address], [place] [phone] * FERRITIN (07/13/2024 10:27 AM HOSPITAL SUPERVISOR) Pathologist [facility] FERRITIN 293.9 8.0 - 388.0 NG/ML 07/13/2024 11:58 AM HOSPITAL SUPERVISOR [facility] 07/13/2024 10:2 7 AM HOSPITAL SUPERVISOR us Mary Lou Shi GUIDANCE DIRECTOR LABORATORY Final Resul t [facility] [address] [place] [address], [place] [phone] * (ABNORMAL) CALCIUM, IONIZED BG (INPATIENT ONLY) (07/13/2024 1:07 AM HOSPITAL SUPERVISOR) Pathologist [facility] CALCIUM IONIZED 1.10(L) 1.16 - 1.30 MMOL/L 07/13/2024 5:57 AM HOSPITAL SUPERVISOR [facility] 07/13/2024 1:07 AM HOSPITAL SUPERVISOR us Brina Galloway DO LABORATORY Final Result [facility] [address] [place] [address], [place] [phone] * OSMOLALITY, BLOOD (07/13/2024 12:46 AM HOSPITAL SUPERVISOR) [facility] OSMOLALITY (S/P/B) 276 270 - 290 MOSM/KG 07/13/2024 1:02 AM HOSPITAL SUPERVISOR [facility] 07/13/2024 12:4 6 AM HOSPITAL SUPERVISOR us Brina Galloway DO LABORATORY Final Result [facility] [address] [place] [phone], * (ABNORMAL) TSH W/REFLEX (07/12/2024 11:40 PM HOSPITAL SUPERVISOR) Pathologist [facility] TSH 7.020(H) 0.358 - 3.74 uIU/ML 07/13/2024 12:32 AM HOSPITAL SUPERVISOR [facility] Comment: HIGH DOSES OF BIOTIN MAY INTERFERE WITH THIS TEST RESULT. CORRELATION TO CLINICAL HISTORY AND PRESENTATION RECOMMENDED. 07/12/2024 11:4 0 PM HOSPITAL SUPERVISOR us Mary Lou Shi APRN LABORATORY Final Resul t Performing Organization Address [facility] Co de Phone Number [facility] [address] [place] [address], [place] [phone] * (ABNORMAL) D-DIMER, QUANTITATIVE (07/12/2024 11:40 PM HOSPITAL SUPERVISOR) D-DIMER 1,055(HH) 0 - 500 ng{FEU}/mL 07/13/2024 12:02 AM HOSPITAL SUPERVISOR [facility] Comment: D-Dimer values less than or equal to 500 ng/mL FEU have a negative predictive value of >95% for exclusion of deep vein thrombosis and pulmonary embolism. In patients over 50 (who tend to have higher normal baseline D-Dimer values), recent studies suggest age-adjusted D-Dimer cutoff values (calculated as: age [years] x 10 ng/mL) result in equivalent outcomes and no additional false negative findings. Successful Call: DDIMR called 07/13/2024 00:05 AM to [facility] 3 MED/SURG ([id number]/DINH VILLARREAL) by [id number]. Read Back: Yes 07/12/2024 11:4 0 PM HOSPITAL SUPERVISOR us Brina Galloway DO LABORATORY Final Result Performing Organization Address [facility] Co de Phone Number [facility] [address] [place] [address], [place] [phone] * THYROXINE, FREE (FT4) (07/12/2024 11:40 PM HOSPITAL SUPERVISOR) FREE T4 1.06 0.76 - 1.46 NG/DL 07/13/2024 12:49 AM HOSPITAL SUPERVISOR [facility] 07/12/2024 11:4 0 PM HOSPITAL SUPERVISOR us Brina Galloway DO LABORATORY Final Result Performing Organization Address City/[facility]/ZIP Co de Phone Number [facility] [address] [place] [address], [place] [phone] * (ABNORMAL) PHOSPHORUS, INORGANIC PHOSPHATE (07/12/2024 11:40 PM HOSPITAL SUPERVISOR) PHOSPHORUS 2.0(L) 2.5 - 4.9 MG/DL 07/13/2024 12:08 AM HOSPITAL SUPERVISOR [facility] 07/12/2024 11:4 0 PM HOSPITAL SUPERVISOR us Mary Lou Meza Jose Guadalupe HOOD LABORATORY Final Resul t Performing Organization Address City/[facility]/ZIP Co de Phone Number [facility] [address] [place] [address], [place] [phone] * MAGNESIUM (07/12/2024 11:40 PM HOSPITAL SUPERVISOR) MAGNESIUM 2.2 1.8 - 2.4 MG/DL 07/13/2024 12:08 AM HOSPITAL SUPERVISOR [facility] 07/12/2024 11:4 0 PM HOSPITAL SUPERVISOR us Mary Lou Shi APRN LABORATORY Final Resul t Performing Organization Address City/[facility]/ZIP Co de Phone Number [facility] [address] [place] [address], [place] [phone] * CK (CPK) (07/12/2024 11:40 PM HOSPITAL SUPERVISOR) CPK 65 21 - 215 U/L 07/13/2024 12:08 AM HOSPITAL SUPERVISOR [facility] 07/12/2024 11:4 0 PM HOSPITAL SUPERVISOR us Barreto Derrick Jose Guadalupe HOOD LABORATORY Final Resul t [facility] [address] [place] [address], [place] [phone] * CT HEAD WO CON (07/12/2024 6:08 PM HOSPITAL SUPERVISOR) Anatomical Region Laterality Modality Head Computed Tomogra phy 07/12/2024 6:32 PM HOSPITAL SUPERVISOR Impressions 07/12/2024 6:37 PM HOSPITAL SUPERVISOR IMPRESSION: Probable small vessel disease. Referred By: Interpreted By: Hero Tierney MD, 07/12/2024 6:32 PM Narrative 07/12/2024 6:37 PM HOSPITAL SUPERVISOR [facility] [address] [place], [place] [address] EXAM: CT HEAD WO CON DATE: 07/12/2024 COMPARISON: None INDICATION: Generalized weakness TECHNIQUE: Noncontrast imaging A dose lowering technique was used for this procedure, which may include, but is not limited to, dose reduction technique, automated exposure control, iterative reconstruction, ALARA (As Low As Reasonably Achievable), or Image Gently techniques. FINDINGS: No hemorrhage, mass effect, or ventricular dilation. Bilateral basal ganglia calcifications. Mild volume loss. Low density white matter findings are probably small vessel disease. No acute bone findings. Nonspecific curvilinear distribution of probable dural calcifications adjacent to the anterior tip of the left temporal lobe. Appearance would not suggest a meningioma and there is no mass effect. Procedure Note Hero Tierney MD - 07/12/2024 [facility] [address] [place], [place] [address] EXAM: CT HEAD WO CON DATE: 07/12/2024 COMPARISON: None INDICATION: Generalized weakness TECHNIQUE: Noncontrast imaging A dose lowering technique was used for this procedure, which may include,but is not limited to, dose reduction technique, automated exposurecontrol, iterative reconstruction, ALARA (As Low As ReasonablyAchievable), or Image Gently techniques. FINDINGS: No hemorrhage, mass effect, or ventricular dilation. Bilateralbasal ganglia calcifications. Mild volume loss. Low density white matterfindings are probably small vessel disease. No acute bone findings.Nonspecific curvilinear distribution of probable dural calcificationsadjacent to the anterior tip of the left temporal lobe. Appearance wouldnot suggest a meningioma and there is no mass effect. IMPRESSION: Probable small vessel disease. Referred By: Interpreted By: Hero Tierney MD, 07/12/2024 6:32 PM us Delta Baeza PA CT Final Resul t * SODIUM URINE RANDOM (07/12/2024 3:21 PM HOSPITAL SUPERVISOR) NA RANDOM (U) 9 MMOL/L 07/13/2024 8:47 AM HOSPITAL SUPERVISOR [facility] Comment:REFERENCE RANGE NOT ESTABLISHED URINE SPECIMEN / Unknown 07/12/2024 3:21 PM HOSPITAL SUPERVISOR Brina Galloway DO URINE ORDERABLES Final Resul t [facility] [address] [place] [address], [id number] * (ABNORMAL) URINALYSIS (07/12/2024 3:21 PM HOSPITAL SUPERVISOR) SPECIMEN TYPE URINE CLEAN CATCH 07/12/2024 3:25 PM HOSPITAL SUPERVISOR [facility] COLOR (U) YELLOW 07/12/2024 4:05 PM HOSPITAL SUPERVISOR [facility] TRANSPARENCY TURBID 07/12/2024 4:05 PM HOSPITAL SUPERVISOR [facility] SPECIFIC GRAVITY (U) 1.003 1.001 - 1.030 07/12/2024 4:05 PM HOSPITAL SUPERVISOR [facility] U PH 6.0 5.0 - 9.0 07/12/2024 4:05 PM HOSPITAL SUPERVISOR [facility] LEUKOCYTES (U) 250(A) NEGATIVE 07/12/2024 4:05 PM [facility] NITRITES NEGATIVE NEGATIVE 07/12/2024 4:05 PM [facility] PROTEIN RANDOM (U) NEGATIVE <30 MG/DL 07/12/2024 4:05 PM [facility] GLUCOSE (U) NORMAL NORMAL MG/DL 07/12/2024 4:05 PM [facility] KETONES MG/DL (U) TRACE(A) NEGATIVE MG/DL 07/12/2024 4:05 PM [facility] UROBILINOGEN 6.0(A) NORMAL MG/DL 07/12/2024 4:05 PM [facility] BILIRUBIN (U) NEGATIVE NEGATIVE MG/DL 07/12/2024 4:05 PM [facility] BLOOD (U) 1+(A) NEGATIVE 07/12/2024 4:05 PM [facility] WBC/HPF 3 <6 /HPF 07/12/2024 4:05 PM [facility] RBC/HPF 5 <6 /HPF 07/12/2024 4:05 PM [facility] BACTERIA (U) MODERATE(A) NONE /HPF 07/12/2024 4:05 PM [facility] CA OXALATE CRYSTALS RARE /HPF 07/12/2024 4:05 PM [facility] SQUAMOUS EPITHELIALS RARE /HPF 07/12/2024 4:05 PM [facility] URINE SPECIMEN OBTAINED BY CLEAN CATCH PROCEDURE / Unknown 07/12/2024 3:21 PM HOSPITAL SUPERVISOR us Delta LUA URINE ORDERABLES Final Resu lt [facility] [address] [place] [address], [place] [phone] * (ABNORMAL) CULTURE URINE (07/12/2024 3:21 PM HOSPITAL SUPERVISOR) SPEC DESCRIPTION URINE CLEAN CATCH 07/12/2024 5:04 PM HOSPITAL SUPERVISOR [facility] SPECIAL REQUESTS NO SPECIAL REQUEST 07/12/2024 5:04 PM HOSPITAL SUPERVISOR [facility] CULTURE RESULT 50,000-100,00 0 COL/ML ESCHERICHIA COLI (A) 07/14/2024 8:05 AM HOSPITAL SUPERVISOR [facility] CULTURE RESULT 50,000-100,00 0 COL/ML PROTEUS MIRABILIS (A) 07/14/2024 8:05 AM [facility] URINE SPECIMEN OBTAINED BY CLEAN CATCH PROCEDURE / Unknown 07/12/2024 3:21 PM HOSPITAL SUPERVISOR 07/12/2024 5:38 PM HOSPITAL SUPERVISOR Narrative Organism Antibiotic Method Susceptibility Escherichia coli AMPICILLIN BRYN (VITEK) >=32: Resistant Escherichia coli AMPICILLIN/SULBACTAM BRYN (VITEK) 16: Intermediate Comment:INTERMEDIATE Escherichia coli CEFTRIAXONE BRYN (VITEK) <=1: Sensitive Escherichia coli CEFTAZIDIME BRYN (VITEK) <=1: Sensitive Escherichia coli CEFAZOLIN BRYN (VITEK) <=4: Sensitive Escherichia coli ESBL BRYN (VITEK) NEG: Sensitive Escherichia coli NITROFURANTOIN BRYN (VITEK) <=16: Sensitive Escherichia coli GENTAMICIN BRYN (VITEK) <=1: Sensitive Escherichia coli LEVOFLOXACIN BRYN (VITEK) >=8: Resistant Escherichia coli PIPRACIL/TAZO BRYN (VITEK) <=4: Sensitive Escherichia coli TRIMETH-SULFAMETH. BRYN (VITEK) <=20: Sensitive Proteus mirabilis AMPICILLIN BRYN (VITEK) <=2: Sensitive Proteus mirabilis AMPICILLIN/SULBACTAM BRYN (VITEK) <=2: Sensitive Proteus mirabilis CEFTRIAXONE BRYN (VITEK) <=1: Sensitive Proteus mirabilis CEFTAZIDIME BRYN (VITEK) <=1: Sensitive Proteus mirabilis CEFAZOLIN BRYN (VITEK) <=4: Sensitive Proteus mirabilis NITROFURANTOIN BRYN (VITEK) 128: Resistant Proteus mirabilis GENTAMICIN BRYN (VITEK) <=1: Sensitive Proteus mirabilis LEVOFLOXACIN BRYN (VITEK) <=0.12: Sensitive Proteus mirabilis PIPRACIL/TAZO BRYN (VITEK) <=4: Sensitive Proteus mirabilis TRIMETH-SULFAMETH. BRYN (VITEK) <=20: Sensitive Delta LUA MICROBIOLOGY - GENERAL MICA HURTADO Final Result Performing Organization Address [facility] Co de Phone Number [facility] [address] [place] [address], * OSMOLALITY, URINE (07/12/2024 3:21 PM HOSPITAL SUPERVISOR) OSMOLALITY (U) 83 50 - 1,200 MOSM/KG 07/12/2024 8:12 PM HOSPITAL SUPERVISOR [facility] URINE SPECIMEN / Unknown 07/12/2024 3:21 PM HOSPITAL SUPERVISOR Brina Galloway DO URINE ORDERABLES Final Resul t Performing Organization Address [facility] Co de Phone Number [facility] [address] [place] [address], [place] [phone] * (ABNORMAL) PRO-BRAIN NATRIURETIC PEPTIDE (07/12/2024 2:18 PM HOSPITAL SUPERVISOR) PRO-B TYPE NATRIURETIC PEPTIDE 792(H) <125 PG/ML 07/12/2024 2:49 PM HOSPITAL SUPERVISOR [facility] Comment: CUT POINTS ESTABLISHED BY [employer]ATIONAL [employer] ON NT PROBNP (ICON) STUDY (2006). AGE INDEPENDENT: <300 PG/ML HAS A 99% NEGATIVE PREDICTIVE VALUE FOR EXCLUDING ACUTE CHF <50 YEARS: >450 PG/ML IS CONSISTENT WITH ACUTE CHF 50-75 YEARS: >900 PG/ML IS CONSISTENT WITH ACUTE CHF >75 YEARS: >1800 PG/ML IS CONSISTENT WITH ACUTE CHF IN PATIENTS WITH RENAL INSUFFICIENCY (GFR <60), >1200 PG/ML YIELDS A DIAGNOSTIC SENSITIVITY AND SPECIFICITY OF 89% AND 72% FOR ACUTE CHF. 07/12/2024 2:18 PM HOSPITAL SUPERVISOR Delta LUA LABORATORY Final Resul t [facility] [address] [place] [address], * ECG 12 lead (07/12/2024 2:06 PM HOSPITAL SUPERVISOR) 07/12/2024 2:06 PM HOSPITAL SUPERVISOR Narrative [facility] RAD - 07/12/2024 3:20 PM HOSPITAL SUPERVISOR [address] Test Date: 2024-07-12 Pat Name: HAYLEE NIÑO Department: 41 Room: [id number] Gender: Female Bottle Washer: : 1960 Requested By: PRINCESS WILLIAM Order Number: [id number] Reading MD: Pau Aguero Measurements Intervals [place] Rate: 96 P: 33 HI: 136 QRS: -3 QRSD: 68 T: 66 QT: 340 QTc: 430 Interpretive Statements SINUS RHYTHM LOW QRS VOLTAGE [QRS DEFLECTION < 0.5/1.0 mV IN LIMB/CHEST LEADS] Possible SEPTAL MYOCARDIAL INFARCTION , OF INDETERMINATE AGE [40+ ms Q WAVE IN V1/V2] No previous ECG available for comparison ITAL SUPERVISOR Procedure Note Pau Aguero MD - 07/12/[address] Test Date: 2024-07-12 Pat Name: HAYLEE SALINAS Department: 41 Room: [id number] Gender: Female Bottle Washer: : 1960 Requested By: PRINCESS WILLIAM Order Number: [id number] Reading MD: Pau Aguero Measurements Intervals [place] Rate: 96 P: 33 HI: 136 QRS: -3 QRSD: 68 T: 66 QT: 340 QTc: 430 Interpretive Statements SINUS RHYTHM LOW QRS VOLTAGE [QRS DEFLECTION < 0.5/1.0 mV IN LIMB/CHEST LEADS] Possible SEPTAL MYOCARDIAL INFARCTION , OF INDETERMINATE AGE [40+ ms QWAVE IN V1/V2] No previous ECG available for comparison ITAL SUPERVISOR us Delta Baeza PA ECG ORDERABLES Final Resul t [facility] ([facility]) RAD * XR CHEST PORTABLE (07/12/2024 1:52 PM HOSPITAL SUPERVISOR) Anatomical Region Laterality Modality Chest Radiographic Flavia ging 07/12/2024 2:23 PM HOSPITAL SUPERVISOR Impressions 07/12/2024 2:24 PM HOSPITAL SUPERVISOR =====IMPRESSION:===== 1. Minimal atelectatic changes at the lung bases. No airspace consolidation or pleural effusion. Ordered By: DELTA BAEZA Interpreted By: Leonardo Bernard MD, 07/12/2024 2:23 PM Narrative 07/12/2024 2:24 PM HOSPITAL SUPERVISOR [address] [address] Examination: Chest x-ray 1 view Exam date/time: 07/12/2024 1:32 PM Reason For Exam: genearlized weakness Comparison: None Technique: Upright AP view of the chest demonstrated. Findings: Patient somewhat rotated. Heart size within normal limits. Pulmonary vasculature does not appear congested. Minimal atelectatic change in the lung bases. No airspace consolidation. No pleural effusion. No hyperinflation. Procedure Note Leonardo Bernard MD - 07/12/2024 [facility] [address] [place], [place] [address] Examination: Chest x-ray 1 view Exam date/time: 07/12/2024 1:32 PM Reason For Exam: genearlized weakness Comparison: None Technique: Upright AP view of the chest demonstrated. Findings: Patient somewhat rotated. Heart size within normal limits.Pulmonary vasculature does not appear congested. Minimal atelectaticchange in the lung bases. No airspace consolidation. No pleural effusion.No hyperinflation. =====IMPRESSION:===== 1. Minimal atelectatic changes at the lung bases. No airspaceconsolidation or pleural effusion. Ordered By: DELTA BAEZA Interpreted By: Leonardo Bernard MD, 07/12/2024 2:23 PM Delta Baeza [place] [facility] Final Resul t * (ABNORMAL) POCT glucose (07/12/2024 12:56 PM HOSPITAL SUPERVISOR) GLUCOSE POC 204(H) 70 - 99 mg/dL 07/12/2024 1:08 PM HOSPITAL SUPERVISOR [facility] 07/12/2024 12:5 6 PM HOSPITAL SUPERVISOR Attending Physician Emergency MD POCT ORDERABLES - DEVICE Final Result [facility] [address] [place] [address], [place] [phone] from Last 3 Months Insurance [employer] Advance Directives * Full Code (Latest Code Status on File) Date Activated Date Inactivated Comments 07/12/2024 8:50 PM 07/17/2024 3:59 PM * Full Code Date Activated Date Inactivated Comments 10/30/2022 1:54 PM 07/12/2024 12:49 PM Care Teams Punch Machine Operator Relationship Specialty Start Date End Date Ashley Guzman MD PCP - General FAMILY PRACTICE 10/25/22
--- OUTSIDE RECORDS SUMMARY | 2024-08-07 07:32 | XMS_ITS | Clinical Summary ---
Author Organization [facility] Address [address], [facility] [address] [place] [address] Phone Care Team Providers Care Board Layer Name Role Phone Adam Ewing MD Unavailable Christopher Barron Primary Care Provider Allergies No known active allergies Medications acetaminophen (TYLENOL) 325 MG Tablet 3 Active Aspirin Low Dose 81 MG Tablet Delayed Response TAKE 1 TABLET BY MOUTH EVERY DAY 30 Tablet 3 Active carvedilol (COREG) 6.25 MG TabletIndication s:Primary hypertension Take 1 Tablet by mouth 2 times daily. 180 Tablet 4 Active furosemide (LASIX) 20 MG TabletIndication s:Lower leg edema Take 1 Tablet by mouth daily. 90 Tablet 4 Active Additional Information Patient not taking.Reported on 06/21/2024 gabapentin (NEURONTIN) 100 MG CapsuleIndicatio ns:Pain in both lower legs TAKE 1 CAPSULE BY MOUTH THREE TIMES DAILY 90 Capsule 4 Active Active Problems Problem Noted Date Diagnosed Date Chronic low back pain ASHD (arteriosclerotic heart disease) Encounters Date Type Department Care Team Description 08/05/2024 [facility] [address] [place] [phone] Christopher Barron PAC 06/21/2024 [facility] [address] [place] [address] Christopher Barron, PAC Leg Swelling 05/26/2024 Refill [facility] - Primary Care - [place] [address] [place] [address] Christopher Barron, PAC Medication Refill from Last 3 Months Immunizations Immunization Administration Dates Next Due Covid-19, Mrna, Lnp-s, Pf, 3 0 Mcg/0.3 Ml Dose (Pfizer) 01/29/2021,01/08/2021 Influenza Vaccine, Quadrivalent, PF 08/07/2022,0 06/04/2018,05/02/2017 Influenza, Trivalent, Adjuvanted, PF 04/18/2024 PNEUMONIA ADULT IM PPSV23 07/26/2016 Pneumococcal conjugate PCV20 , polysaccharide [id number] conjugate, adjuvant, PF 08/07/2022 Family History Medical History Relation Name Comments Diabetes Father Kidney Disease Mother Relation Name Status Comments Father Mother Social History Tobacco Use Types Packs/Day Years Used Date Smoking Tobacco: Every Day Cigarettes Smokeless Tobacco: Former Alcohol Use Standard Drinks/Week Comments Yes 3 (1 standard drink = 0.6 oz pur e alcohol) Socially PHQ-2 Answer Date Recorded Total Score - Questions 1-9 0 03/29 Sexually Active Control Partners Comments Not Currently Comments No Sex and Gender Information Value Date Recorded Sex Assigned at Not on file Legal Sex Female 9:10 PM CDT Gender Identity Not on file Sexual Orientation Not on file Last Filed Vital Signs Vital Sign Reading Time Taken Comments Blood Pressure 100/78 04/18/2024 2:19 PM [place] CORONER Pulse 88 04/18/2024 2:19 PM COUNTY CORONER Temperature 36 C (96.8 F) 04/18/2024 2:19 PM COUNTY CORONER Respiratory Rate 14 04/18/2024 2:19 PM COUNTY CORONER Oxygen Saturation 98% 04/18/2024 2:19 PM COUNTY CORONER Inhaled Oxygen Concentration - - Weight 58.3 kg (128 lb 7 oz) 04/18/2024 2:19 PM COUNTY CORONER Height 177.8 cm (5' 10 ) 04/18/2024 2:19 PM COUNTY CORONER Body Mass Index 18.43 04/18/2024 2:19 PM COUNTY CORONER Plan of Treatment Upcoming Encounters Date Type Department Care Team (Late st Contact Info) Description 10/16/2024 4:00 PM CDT Office Visit [facility] - Primary Care - [place] [address] [place] [address] Christopher Barron, TITO [address] [place] [address] Health Maintenance Due Date Last Done Comments DEXA Bone Density 1960 Hepatitis C Virus (HCV) Screening 1960 Mammogram 1960 TdaP Immunization 1960 Colonoscopy 2003 Colorectal Cancer Screening 2003 Cologuard 02/28/2008 Immunochemical Fecal Occult Blood 02/28/2008 Zoster Immunization (1 of 2) 02/28/2008 Respiratory Syncytial Virus (RSV) Immunization (Adult) (1 - Risk 60-74 years 1-dose series) 2018 SARS-COV-2 Immunization ( season) 2024 01/29/2021, 01/08/2021 Pneumococcal Immunization (50+ years) Completed 08/07/2022, 07/26/2016 Pneumococcal Immunization Combined Discontinued 08/07/2022, 07/26/2016 Influenza Immunization Completed , 08/07/2022, 06/04/2018, Additional history exists Hepatitis B Immunization Aged Out No longer eligible based on patient's age to complete this topic Meningococcal Immunization (ACWY) Aged Out No longer eligible based on patient's age to complete this topic Rotavirus Immunization Aged Out No lo nger eligible based on patient's age to complete this topic Medical Devices Implanted Type Area Chairman Device Identifier Shelf Expiration Date Model / Serial / Lot Stent Rx Jason Alpine 2.50 X 12mm - [id number] Implanted:Qty : 1 on 09/01/2016 by Adam Ewing MD at [facility] IMPLANT [employer] 03/20/2019 [id number] / [id number] / [id number] Stent Rx Jason Alpine 2.50 X 18mm - [id number] Implanted:Qty : 1 on 09/01/2016 by Adam Ewing MD at [facility] IMPLANT [employer] 02/09/2019 [id number] / [id number] / [id number] Stent Rx Jason Alpine 2.25 X 12mm - [id number] Implanted:Qty : 1 on 09/01/2016 by Adam Ewing MD at [facility] IMPLANT [employer] 11/08/2018 [id number] / [id number] / [id number] Closure Mynxgrip 6fr [id number] - [id number] Implanted:Qty : 1 on 09/01/2016 by Adam Ewing MD at [facility] IMPLANT Right: Groin [employer] 02/24/2018 [id number] / [id number] / [id number] [place] [address] MEDICARE C [employer] Care Teams Board Layer Relationship Specialty Start Date End Date Christopher Barron, TITO [address] [place] [address] PCP - General Physician Architectural Project Manager 04/18/24 Adam Ewing MD [address] [place] [address] Consulting Physician Cardiovascular Disease - Cardiology 07/26/16
[2024-08-07 07:41] LABS: Alanine Aminotransferase 28 U/L (6-35); Albumin Level 1.6 g/dL (3.5-5.1); Alkaline Phosphatase 157 U/L (38-126); Anion Gap -1 mmol/L (4-12); Aspartate Amino Transferase 26 U/L (14-36); Bilirubin,Total 0.8 mg/dL (0.2-1.3); Blood Urea Nitrogen 10 mg/dL (7-17); Calcium 7.2 mg/dL (8.4-10.2); Carbon Dioxide 30 mmol/L (22-30); Chloride 104 mmol/L (98-107); Estimated CRCL calculation 158 ml/min; Estimated Glomerular Filt Rate > 60; Glucose 89 mg/dL (65-110); Magnesium 2.1 mg/dL (1.6-2.3); Potassium 3.6 mmol/L (3.4-5.0); Sodium 133 mmol/L (137-145)
[2024-08-07 07:55] LABS: Alveolar/Arterial O2 Gradient 68.5 mmHg; Base Excess ABG -0.5 mEq/l (+/-2.0); Fractional Inspired Oxygen 21 %; HCO3 ABG 21.8 mEq/l (22.0-26.0); Oxygen Content ABG 11.2 %vol (16.0-22.0); Oxygen Saturation ABG 88.4 % (95.0-100.0); PCO2 ABG 27.7 mmHg (35.0-45.0); PO2 FiO2 Ratio Arterial Blood 2.29 %; Total Hemoglobin 9.6 g/dL (12.0-18.0)
[2024-08-07 07:56] LABS: pH ABG 7.513 (7.350-7.450)
[2024-08-07 07:57] LABS: Device ROOM AIR; Modified Allen's Test Pass; Oxyhemoglobin 82.7 % THb (90.0-100.0); PO2 ABG 48.1 mmHg (80.0-100.0); Site Drawn LEFT RADIAL
[2024-08-07 08:03] LABS: INR 1.2; Prothrombin Time 15.8 Seconds (11.1-14.7)
[2024-08-07 08:04] LABS: Partial Thromboplastin Time 38.5 Seconds (22.3-36.8)
[2024-08-07 08:13] LABS: NT Pro B Type Natriuretic Pept 989 pg/mL (19.9-100); Troponin I < 0.012 ng/mL (0.000-0.034)
--- NOTE | 2024-08-07 08:14 | PC.NURSE ---
ERP wants to draw and repeat ABGs himself
[2024-08-07 08:23] LABS: Alveolar/Arterial O2 Gradient 65.1 mmHg; Base Excess ABG 2.6 mEq/l (+/-2.0); Carboxyhemoglobin 0.6 % THb (0-2.0); Fractional Inspired Oxygen 21 %; HCO3 ABG 24.8 mEq/l (22.0-26.0); Methemoglobin ABG 0.2 %THb (0-1.5); Oxygen Saturation ABG 89.5 % (95.0-100.0); PCO2 ABG 29.8 mmHg (35.0-45.0); PO2 FiO2 Ratio Arterial Blood 2.33 %; Reduced Hemoglobin 14.7 %THb (0-5.0); Total Hemoglobin 10.1 g/dL (12.0-18.0)
[2024-08-07 08:24] LABS: pH ABG 7.538 (7.350-7.450)
[2024-08-07 08:25] LABS: Device ROOM AIR; Modified Allen's Test Pass; Oxyhemoglobin 84.5 % THb (90.0-100.0); PO2 ABG 48.9 mmHg (80.0-100.0); Site Drawn RIGHT RADIAL
[2024-08-07] MEDS: HYDROcodone/acetaminophen (*CRX) 5-325 MG TABLET 1 TAB PO ×3 (08:33→16:53)
[2024-08-07] MEDS: GABAPENTIN 100 MG CAPSULE PO ×3 (08:33→16:54)
[2024-08-07] MEDS: FUROSEMIDE INJ 40 MG/4 ML VIAL 20 MG IV PUSH (10:37)
[2024-08-07] MEDS: HEPARIN SOD/D5W 100 UNITS/ML 25,000 UNITS/250 ML BAG 14 UNITS IV CONT (10:38)
--- NOTE | 2024-08-07 12:55 | ADMGEN ---
This patient, Madison Youssef, was admitted to IMU Room 209-01 at 1130. Patient/family oriented to hospital policies and general routines including ID bracelet, bed and alarms, visiting hours, pain management, procedures, bathroom and other care routines, personal items, smoking policy, room service/diet, and visiting hours. Information on how to activate the Rapid Response Team has been discussed. Patient/Family are encouraged to report perceived risks to care and to ask questions if they do not understand what they are told or what they should do.
--- NOTE | 2024-08-07 13:21 | P.PNIM_ITS ---
Progress Note: A&P Assessment and Plan (1) Pulmonary embolism: Code(s): I26.99 - Other pulmonary embolism without acute cor pulmonale Status: Acute (2) Acute hypoxic respiratory failure: Code(s): J96.01 - Acute respiratory failure with hypoxia Status: Acute (3) Tobacco abuse counseling: Code(s): Z71.6 - Tobacco abuse counseling Status: Acute Plan 64 y.o female admitted for sob from long-term. Chest xray showed small right pleural effusion. CHEST X-RAY showed atelectasis vs PNEUMONIA, PLEURAL EFFUSION, CTA: RIGHT UPPER LOBE PULMONARY EMBOLISM. Pt was started on heparin drip and admitted to IMU for close monitoring. Pt never been to this facility- no records available. - continue respiratory and hemodynamic support - oxygen supplementation if needed - add Echo, pro-BNP, consider card. consult as pt will need to start f/u with cardiology - daily labs - continue heparin drip for now - doppler BLE to r/u dvts review home meds and restart - nicotine patch - smoking cessation counselling completed. Per RN report, some difficulties swallowing, will add speech eval. Time Spent With Patient Time with patient: 25 - 35 minutes Subjective Date/time seen: 08/07/24 13:21 Interval history: 64 y. o female with PMH/o seasonal allergies, neuropathy..... was brought to ED per ems from long-term for complains of SOB. She had been having some intermitted cough. NO chest pain, no n/v/d. Pt reports that she had heart stents while ago but have not seen [facility] erp architect in awhile. Denies chf\. not on statin. \Report rt leg swelling and pain for about 1 month. Smoking on and off for many years, determined to quit. Chest xray in ed: MPRESSION: 1. Airspace opacities at the lung bases, consistent with atelectasis versus pneumonia. 2. Small pleural effusions. 3. Emphysema. Chest cta: IMPRESSION: 1. Acute right upper lobe pulmonary embolus. 2. Mild pulmonary edema with small pleural effusions. 3. Moderate emphysema. 4. Perihepatic ascites. WBC 6.9, hg/hct 9.9/28.2, plt 324, ph 7.538, pco2 29.8, o2 48.9, she was on ra- placed on 2l per nc Pt is comfortable on exam and reports no discomfort, no chest pain, no sob. Per rn report, some difficulties swallowing, will add speech eval. Review of Systems Review of Systems: All systems reviewed & are unremarkable except as noted in HPI and below Exam Narrative: on 2 l per nc, calm and comfortable Const: General: comfortable Eyes: General: appearance normal, both eyes and all related structures Resp: Effort & Inspection: normal respiratory effort Other: diminished jenny bases Cardio: Rate: regular rate Rhythm: regular rhythm GI: GI Palp: Yes Soft to palpation Auscultation: normal bowel sounds Skin: General skin exam: normal color Other: some erythema to rt lower extremity, slightly edematous Extrem: Other: some erythema to rt lower extremity, slightly edematous, negative sallie sign Psych: Mental Status: mental status grossly normal Affect: normal affect Objective Data Vital Signs Vital Signs: Vital Signs - 24 hr 08/07/24 07:15 08/07/24 07:16 08/07/24 07:30 Temperature 97.8 F Pulse Rate 106 H 103 H 93 Respiratory Rate 19 16 14 Blood Pressure 106/88 103/82 Pulse Oximetry 99 Oxygen Delivery Room Air 08/07/24 08:00 08/07/24 09:00 08/07/24 09:05 Temperature 97.6 F Pulse Rate 93 98 Respiratory Rate 18 12 Blood Pressure 102/79 106/76 Pulse Oximetry 94 Oxygen Delivery Room Air 08/07/24 10:04 08/07/24 10:30 08/07/24 11:57 Temperature 97.6 F 97.9 F 97.5 F L Pulse Rate 105 H 112 H 111 H Respiratory Rate 14 18 22 H Blood Pressure 105/79 96/85 L 93/70 L Pulse Oximetry 94 94 99 Oxygen Delivery Meds/Results Medications: Active Medications Generic Name Dose Route Start Last Admin Trade Name Freq PRN Reason Stop Dose Admin Acetaminophen 650 mg 08/07/24 10:20 Acetaminophen 325 Mg Tablet PO Q4H PRN Mild Pain (1-3) or Fever Hydrocodone Bitart/Acetaminophen 1 tab 08/07/24 12:13 Hydrocodone/Acetaminophen (*Crx) 5-325 Mg Tablet PO Q4H PRN pain Carvedilol 6.25 mg 08/07/24 21:00 Carvedilol 6.25 Mg Tablet PO Q12HR NAYELY Folic Acid 1 mg 08/08/24 09:00 Folic Acid 1 Mg Tablet PO DAILY [facility] Gabapentin 100 mg 08/07/24 13:00 Gabapentin 100 Mg Capsule PO TID [facility] Heparin Sodium (Porcine) 6,500 units 08/07/24 10:14 Heparin Sodium 5,000 Units/Ml Vial IV PUSH PRN PRN aPTT less than 55 seconds Heparin Sodium (Porcine) 3,000 units 08/07/24 10:14 Heparin Sodium 5,000 Units/Ml Vial IV PUSH PRN PRN aPTT 55 - 70 seconds Heparin Sodium/Dextrose 25,000 units in 250 mls @ 14 mls/hr 08/07/24 10:15 08/07/24 10:38 Heparin Sodium/D5w 100 Units/Ml IV CONT 1,400 units/hr .[id number] NAYELY 14 mls/hr Administration Protocol 1,400 UNITS/HR Loratadine 10 mg 08/08/24 09:00 Loratadine 10 Mg Tablet PO QAM [facility] Ondansetron HCl 4 mg 08/07/24 12:13 Ondansetron Hcl Odt 4 Mg Tablet PO Q6H PRN nausea/vomiting Radiology Results: ITS Impressions Chest X-Ray 08/07/24 08:09 IMPRESSION: 1. Airspace opacities at the lung bases, consistent with atelectasis versus pneumonia. 2. Small pleural effusions. 3. Emphysema. Chest CTA 08/07/24 10:03 IMPRESSION: 1. Acute right upper lobe pulmonary embolus. I called this result to Dr. Pike. 2. Mild pulmonary edema with small pleural effusions. 3. Moderate emphysema. 4. Perihepatic ascites. Labs Labs: Laboratory Results - last 24 hr 08/07/24 08/07/24 08/07/24 07:26 07:45 08:12 WBC 6.9 RBC 2.85 L Hgb 9.9 L Hct 28.2 L MCV 98.9 MCH 34.7 H MCHC 35.1 RDW 13.7 Plt Count 324 MPV 9.3 Immature Gran % (Auto) 0.4 Neut % (Auto) 48.9 Lymph % (Auto) 40.3 Harris % (Auto) 8.4 Eos % (Auto) 1.7 Baso % (Auto) 0.3 Lymph # (Auto) 2.78 Harris # (Auto) 0.6 Eos # (Auto) 0.1 Baso # (Auto) 0.0 Abs Immat Gran (auto) 0.03 Absolute Neuts (auto) 3.4 Absolute Nucleated RBC 0.000 Nucleated RBC % 0.0 PT 15.8 H INR 1.2 APTT 38.5 H Puncture Site Left radial Right radial ABG pH 7.513 H* 7.538 H* ABG pCO2 27.7 L 29.8 L ABG pO2 48.1 L* 48.9 L* ABG PO2/FiO2 Ratio 2.29 2.33 ABG HCO3 21.8 L 24.8 ABG O2 Saturation 88.4 L 89.5 L ABG O2 Content 11.2 L 12.0 L ABG Base Excess -0.5 2.6 A-a Gradient 68.5 65.1 Oxyhemoglobin 82.7 L* 84.5 L* Carboxyhemoglobin 0.6 Methemoglobin 0.2 Reduced Hemoglobin 14.7 H Total Hemoglobin 9.6 L 10.1 L O2 Delivery Device Room air Room air O2 Liters/Min Not Reportable Not Reportable FiO2 21 21 Sodium 133 L Potassium 3.6 Chloride 104 Carbon Dioxide 30 Anion Gap -1 L BUN 10 Creatinine 0.35 L Estim Creat Clear Calc 158 Estimated GFR > 60 Glucose 89 Calcium 7.2 L Magnesium 2.1 Total Bilirubin 0.8 AST 26 ALT 28 Alkaline Phosphatase 157 H Troponin I < 0.012 NT-Pro-B Natriuret Pep 989 H Total Protein 5.0 L Albumin 1.6 L Quality VTE Prophylaxis VTE prophylaxis: pharmacologic ordered
--- OUTSIDE RECORDS SUMMARY | 2024-08-07 13:40 | XMS_ITS | Clinical Summary ---
Author Organization [facility] Address [address], [facility] [address] [place] [address] Phone Care Team Providers Care Armorer Technician Name Role Phone Adam Ewing MD Unavailable Christopher Barron Primary Care Provider [phone] Allergies No known active allergies Medications acetaminophen [...] Type Department Care Team Description 08/05/2024 [facility] [address] [place] [phone] Christopher Barron PAC 06/21/2024 [facility] [address] [place] [address] Christopher Barron, PAC Leg Swelling 05/26/[address] [facility] - Primary Care - [place] [address] [place] [address] Christopher Barron, PAC Medication Refill from Last 3 Months Immunizations Immunization Administration Dates Next Due Covid-19, Mrna, Lnp-s, Pf, 3 0 Mcg/0.3 Ml Dose (Pfizer) 01/29/2021,01/08/2021 Influenza Vaccine, Quadrivalent, PF 08/07/2022,0 06/04/2018,05/02/2017 Influenza, Trivalent, Adjuvanted, PF 04/18/2024 PNEUMONIA ADULT IM PPSV23 07/26/2016 Pneumococcal conjugate PCV20 , polysaccharide [id number] conjugate, adjuvant, PF 08/07/2022 Family History Medical [...] Comments Blood Pressure 100/78 04/18/2024 2:19 PM SKOOG OPERATOR Pulse 88 04/18/2024 2:19 PM SKOOG OPERATOR Temperature 36 C (96.8 F) 04/18/2024 2:19 PM SKOOG OPERATOR Respiratory Rate 14 04/18/2024 2:19 PM SKOOG OPERATOR Oxygen Saturation 98% 04/18/2024 2:19 PM SKOOG OPERATOR Inhaled Oxygen Concentration - - Weight 58.3 kg (128 lb 7 oz) 04/18/2024 2:19 PM SKOOG OPERATOR Height 177.8 cm (5' 10 ) 04/18/2024 2:19 PM SKOOG OPERATOR Body Mass Index 18.43 04/18/2024 2:19 PM SKOOG OPERATOR Plan of Treatment Upcoming Encounters Date Type Department Care Team (Late st Contact Info) Description 10/16/2024 4:00 PM CDT Office Visit [facility] - Primary Care - [place] [address] [place] [address] Christopher Barron, TITO [address] [place] [address] Health Maintenance Due Date Last Done [...] this topic Medical Devices Implanted Type Area V Groove Cutter Device Identifier Shelf Expiration Date Model / Serial / Lot Stent Rx Jason Alpine 2.50 X 12mm - [id number] Implanted:Qty : 1 on 09/01/2016 by Adam Ewing MD at [facility] IMPLANT [employer] 03/20/2019 [id number] / [id number] / [id number] Stent Rx Jason Alpine 2.50 X 18mm - [id number] Implanted:Qty : 1 on 09/01/2016 by Adam Ewing MD at [facility] IMPLANT [employer] 02/09/2019 [id number] / [id number] / [id number] Stent Rx Jason Alpine 2.25 X 12mm - [id number] Implanted:Qty : 1 on 09/01/2016 by Adam Ewing MD at [facility] IMPLANT [employer] 11/08/2018 [id number] / [id number] / [id number] Closure Mynxgrip 6fr [id number] - [id number] Implanted:Qty : 1 on 09/01/2016 by Adam Ewing MD at [facility] IMPLANT Right: Groin [employer] 02/24/2018 [id number] / [id number] / [id number] [place] [address] MEDICARE C [employer] Care Teams Armorer Technician Relationship Specialty Start Date End Date Christopher Barron, TITO [address] [place] [address] PCP - General Physician Line Walker 04/18/24 Adam Ewing MD [address] [place] [address] Consulting Physician Cardiovascular Disease - Cardiology 07/26/16
--- OUTSIDE RECORDS SUMMARY | 2024-08-07 13:40 | XMS_ITS | Clinical Summary ---
Author Organization [facility] Address [address] [place] [id number] Care Team Providers Care Cisco Engineer Name Role Phone Ashley Guzman MD Primary Care Provider [phone] Allergies No known active allergies Medications carvedilol [...] Department Care Team Description 07/12/2024 12:56 PM PERCH MENDER - 07/17/2024 1:59 PM PERCH MENDER Hospital Encounter [facility] Med/Surg 3rd [place] [address] Baeza, Delta N, PA BrazeltonPrincess PA Alexander, Kaci M, DO Martens, Jennifer L, NP Littlejohn, Mary C, Dar Glover MD Leg Pain Discharge Disposition: Intermediate Facility 07/12/2024 Travel from Last 3 Months [...] materials from doctor or pharmacy Rarely 02/22/2023 [facility] Utilities Answer Date Recorded In the past 12 months has [facility] [employer], oil, or water [employer] threatened to shut off services in your [...] any time in the past 12 m [facility], were you homeless or living in a alf (including now)? No 07/12/2024 Comments No Sex and Gender Information Value Date Recorded Sex Assigned at Female 07/12/2024 1:09 PM PERCH MENDER Legal Sex Female 2:41 PM CDT Gender Identity Not on file Sexual Orientation Not on file Last Filed Vital Signs Vital Sign Reading Time Taken Comments Blood Pressure 91/60 07/17/2024 11:56 AM PERCH MENDER Pulse 60 07/17/2024 11:56 AM PERCH MENDER Temperature 36.8 C (98.2 F) 07/17/2024 11:56 AM PERCH MENDER Respiratory Rate 18 07/17/2024 11:56 AM PERCH MENDER Oxygen Saturation 98% 07/17/2024 11:56 AM PERCH MENDER Inhaled Oxygen Concentration - - Weight 61.9 kg (136 lb 7.4 oz) 07/17/2024 3:56 A M PERCH MENDER Height 177.8 cm (5' 10 ) 07/12/2024 1:05 PM PERCH MENDER Body Mass Index 19.58 07/12/2024 1:05 PM PERCH MENDER Plan of Treatment Health Maintenance Due Date [...] and discharge planning 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 Procedure Name Priority Date/Time Associated Diagnosis Comments RESPIRATORY PCR PANEL 2 Routine 07/17/2024 10:28 AM PERCH MENDER CBC W/DIFF AUTOMATED STAT 07/17/2024 9:31 AM PERCH MENDER FREE T3 Routine 07/16/2024 11:39 AM PERCH MENDER HEMOGLOBIN, GLYCOSYLATED Routine 07/16/2024 11:39 AM PERCH MENDER CBC W/DIFF AUTOMATED Routine 07/16/2024 11:39 AM PERCH MENDER BASIC METABOLIC PANEL Routine 07/16/2024 11:39 AM PERCH MENDER BASIC METABOLIC PANEL Routine 07/14/2024 11:45 AM PERCH MENDER CBC W/DIFF AUTOMATED Routine 07/14/2024 11:45 AM PERCH MENDER USV MEHDI DUPLEX LOW EXT ANGELITA STAT 07/14/2024 9:46 AM PERCH MENDER TYPE & SCREEN Routine 07/13/2024 10:27 AM PERCH MENDER TROPONIN, QUANT Routine 07/13/2024 10:27 AM PERCH MENDER RETICULOCYTE CT, AUTO Routine 07/13/2024 10:27 AM PERCH MENDER FERRITIN Routine 07/13/2024 10:27 AM PERCH MENDER IRON SAT PANEL (IRON,IBC,%SAT) Routine 07/13/2024 10:27 AM PERCH MENDER FOLIC ACID SERUM Routine 07/13/2024 10:2 7 AM PERCH MENDER VITAMIN B-12 Routine 07/13/2024 10:27 AM PERCH MENDER COMPREHENSIVE METABOLIC PANEL Routine 07/13/2024 10:27 AM PERCH MENDER CBC W/DIFF AUTOMATED Routine 07/13/2024 10:27 AM PERCH MENDER CALCIUM, IONIZED BG Routine 07/13/2024 1 :07 AM PERCH MENDER OSMOLALITY, BLOOD STAT 07/13/2024 12: 46 AM PERCH MENDER D-DIMER, QUANTITATIVE Routine 07/12/2024 11:40 PM PERCH MENDER THYROXINE, FREE (FT4) STAT 07/12/2024 11:40 PM PERCH MENDER TROPONIN, QUANT TIMED 07/12/2024 11:40 PM PERCH MENDER TSH W/REFLEX STAT 07/12/2024 11:40 PM PERCH MENDER CK (CPK) STAT 07/12/2024 11:40 PM PERCH MENDER PHOSPHORUS, INORGANIC PHOSPHATE STAT 07/12/2024 11:40 PM PERCH MENDER MAGNESIUM STAT 07/12/2024 11:40 PM PERCH MENDER RESPIRATORY PCR PANEL 2 STAT 07/12/2024 8:[address] HEAD WO CON STAT 07/12/2024 6:08 PM PERCH MENDER URINE BACTERIA CULTURE Routine 3:21 PM PERCH MENDER SODIUM URINE RANDOM Routine 07/12/2024 3 :21 PM PERCH MENDER OSMOLALITY, URINE Routine 07/12/2024 3:2 1 PM PERCH MENDER HC URINALYSIS AUTO W/O MICRO STAT 07/12/2024 3:21 PM PERCH MENDER TROPONIN, QUANT STAT 07/12/2024 2:18 PM PERCH MENDER PRO-BRAIN NATRIURETIC PEPTIDE STAT 07/12/2024 2:18 PM PERCH MENDER COMPREHENSIVE METABOLIC PANEL STAT 07/12/2024 2:18 PM PERCH MENDER ECG 12-LEAD Routine 07/12/2024 2:06 PM PERCH MENDER XR CHEST PORTABLE STAT 07/12/2024 1:5 2 PM PERCH MENDER CBC W/DIFF AUTOMATED STAT 07/12/2024 1:28 PM PERCH MENDER POCT GLUCOSE - CARROLL DOCKED DEVICE Routine 07/12/2024 12:56 PM PERCH MENDER from Last 3 Months Results * RESPIRATORY PCR PANEL 2 (07/17/2024 10:28 AM PERCH MENDER) Only the most recent of2 resultswithin the time period is included. ADENOVIRUS PCR (RESP) NOT DETECTED NOT DETECTED 07/17/2024 12:25 PM PERCH MENDER [facility] CORONAVIRUS 229E PCR (RESP) NOT DETECTED NOT DETECTED 07/17/2024 12:25 PM PERCH MENDER [facility] CORONAVIRUS HKU1 PCR (RESP) NOT DETECTED NOT DETECTED 07/17/2024 12:25 PM PERCH MENDER [facility] CORONAVIRUS NL63 PCR (RESP) NOT DETECTED NOT DETECTED 07/17/2024 12:25 PM PERCH MENDER [facility] CORONAVIRUS OC43 PCR (RESP) NOT DETECTED NOT DETECTED 07/17/2024 12:25 PM [facility] METAPNEUMOVIRUS PCR (RESP) NOT DETECTED NOT DETECTED 07/17/2024 12:25 PM [facility] RHINOVIRUS/ENTEROV IRUS PCR (RESP) NOT DETECTED NOT DETECTED 07/17/2024 12:25 PM PERCH MENDER [facility] INFLUENZA A PCR (RESP) NOT DETECTED NOT DETECTED 07/17/2024 12:25 PM [facility] INFLUENZA B PCR (RESP) NOT DETECTED NOT DETECTED 07/17/2024 12:25 PM [facility] PARAINFLUENZA 1 PCR (RESP) NOT DETECTED NOT DETECTED 07/17/2024 12:25 PM [facility] PARAINFLUENZA 2 PCR (RESP) NOT DETECTED NOT DETECTED 07/17/2024 12:25 PM [facility] PARAINFLUENZA 3 PCR (RESP) NOT DETECTED NOT DETECTED 07/17/2024 12:25 PM [facility] PARAINFLUENZA 4 PCR (RESP) NOT DETECTED NOT DETECTED 07/17/2024 12:25 PM [facility] RSV PCR (RESP) NOT DETECTED NOT DETECTED 07/17/2024 12:25 PM [facility] B PARAPERTUSIS PCR (RESP) NOT DETECTED NOT DETECTED 07/17/2024 12:25 PM PERCH MENDER [facility] BORDETELLA PERTUSSIS PCR (RESP) NOT DETECTED NOT DETECTED 07/17/2024 12:25 PM [facility] CHLAMYDOPHILA PNEUMONIAE PCR (RESP) NOT DETECTED NOT DETECTED 07/17/2024 12:25 PM [facility] MYCOPLASMA PNEUMONIAE PCR (RESP) NOT DETECTED NOT DETECTED 07/17/2024 12:25 PM PERCH MENDER [facility] CORONAVIRUS SARS COV 2 PCR (RESP) NOT DETECTED NOT DETECTED 07/17/2024 12:25 PM [facility] NASOPHARYNGEAL SWAB / Unknown 07/17/2024 10:28 AM PERCH MENDER Deinse TEE MICROBIOLOGY - GENERAL OR DERABLES Final Result [facility] [address] [place] [address], [place] [phone] * (ABNORMAL) CBC W/DIFF AUTOMATED (07/17/2024 9:31 AM PERCH MENDER) Only the most recent of5 resultswithin the time period is included. WBC 6.13 4.5 - 11.0 x10'3/uL 07/17/2024 9:58 AM [facility] RBC 2.63(L) 4.20 - 5.40 x10'6/uL 07/17/2024 9:58 AM [facility] HGB 9.4(L) 12.0 - 16.0 G/DL 07/17/2024 9:58 AM [facility] HCT 26.7(L) 38.0 - 48.0 % 07/17/2024 9:58 AM [facility] MCV 101.5(H) 81.0 - 99.0 FL 07/17/2024 9:58 AM [facility] MCH 35.7(H) 27.0 - 31.0 PG 07/17/2024 9:58 AM [facility] MCHC 35.2 32.0 - 36.0 G/DL 07/17/2024 9:58 AM [facility] RDW 15.0(H) 11.5 - 14.5 % 07/17/2024 9:58 AM [facility] PLT 252 130 - 400 x10'3/uL 07/17/2024 9:58 AM [facility] MPV 9.6 9.3 - 12.2 FL 07/17/2024 9:58 AM [facility] DIFFERENTIAL TYPE AUTOMATED DIFFERENTIAL 07/17/2024 9:58 AM [facility] NEUTROPHILS % 65.5 % 07/17/2024 9:58 AM [facility] LYMPHOCYTES % 25.1 % 07/17/2024 9:58 AM [facility] MONOCYTES % 8.6 % 07/17/2024 9:58 AM [facility] EOSINOPHILS 0.3 % 07/17/2024 9:58 AM [facility] BASOPHILS 0.2 % 07/17/2024 9:58 AM [facility] IMMATURE GRANS % 0.3 % 07/17/19 9:58 AM [facility] ABS. NEUTROPHILS 4.01 1.80 - 7.70 x10'3/uL 07/17/2024 9:58 AM [facility] ABS. LYMPHOCYTES 1.54 1.00 - 4.80 x10'3/uL 07/17/2024 9:58 AM [facility] ABS. MONOCYTES 0.53 0.24 - 0.86 x10'3/uL 07/17/2024 9:58 AM [facility] ABS. EOSINOPHILS 0.02(L) 0.04 - 0.36 x10'3/uL 07/17/2024 9:58 AM [facility] ABS. BASOPHILS 0.01 0.01 - 0.08 x10'3/uL 07/17/2024 9:58 AM PERCH MENDER [facility] ABS. IMMATURE GRANULOCYTES 0.02 0.00 - 0.49 x10'3/uL 07/17/2024 9:58 AM PERCH MENDER [facility] 07/17/2024 9:31 AM PERCH MENDER Denise Hernandezjohn [employer] [facility] [employer] [facility] Final Res ult [facility] [address] [place] [address], [place] [phone] * HEMOGLOBIN, GLYCOSYLATED (07/16/2024 11:39 AM PERCH MENDER) HGB A1C 4.3 <5.7 % 07/18/2024 11:54 AM PERCH MENDER [facility] Comment: No variants detected ADA GUIDELINES 5.7-6.4% INCREASED RISK FOR FUTURE DIABETES > OR = 6.5% DIABETES DIABETIC GOAL <7.0% ADDITIONAL ACTION SUGGESTED >8.0% National Glycohemoglobin Standardization Program (NGSP) [place] [address] ESTIMATED AVG GLUCOSE 77 mg/dL 07/18/2024 11:54 AM PERCH MENDER [facility] 07/16/2024 11:3 9 AM PERCH MENDER Denise Craven Donavan [employer] [facility] Final Res ult [facility] [address] [place] [address], [place] [phone] * (ABNORMAL) FREE T3 (07/16/2024 11:39 AM PERCH MENDER) FREE T3 0.3(L) 2.18 - 3.98 PG/ML 07/16/2024 4:29 PM PERCH MENDER [facility] 07/16/2024 11:3 9 AM PERCH MENDER us Denise Go [facility] Final Res ult [facility] () [facility] [address] [place] [address], [place] [phone] * (ABNORMAL) BASIC METABOLIC PANEL (07/16/2024 11:39 AM PERCH MENDER) Only the most recent of2 resultswithin the time period is included. GLUCOSE 107(H) 70 - 99 MG/DL 07/16/2024 12:32 PM PERCH MENDER [facility] BUN 3(L) 7 - 18 MG/DL 07/16/2024 12:32 PM [facility] CREATININE S/P/B 0.44(L) 0.55 - 1.02 MG/DL 07/16/2024 12:32 PM PERCH MENDER [facility] SODIUM S/P/B 133(L) 136 - 145 MMOL/L 07/16/2024 12:32 PM [facility] POTASSIUM S/P/B 4.0 3.5 - 5.1 MMOL/L 07/16/2024 12:32 PM [facility] CHLORIDE S/P/B 105 97 - 115 MMOL/L 07/16/2024 12:32 PM [facility] CO2 24.2 21 - 32 MMOL/L 07/16/2024 12:32 PM [facility] CALCIUM S/P/B 7.2(L) 8.5 - 10.1 MG/DL 07/16/2024 12:32 PM [facility] ANION GAP 3.8 2 - 10 MMOL/L 07/16/2024 12:32 PM [facility] BUN CREATININE RATIO 6.8 6 - 26 07/16/2024 12:32 PM PERCH MENDER [facility] GFR ESTIMATE >90 >90 ML/MIN/1.7 3 M2 07/16/2024 12:32 PM PERCH MENDER [facility] Comment: NOTE: eGFR is not calculated for patients <18 years of age or gender unknown. This is an estimated GFR calculation using the new CKD EPI creatinine equation without race and so does not require a correction factor for race. This estimated GFR should not be used for calculating drug doses. 07/16/2024 11:3 9 AM PERCH MENDER Denise MAYNARDNP LABORATORY Final Res ult [facility] [address] [place] [address], * USV MEHDI DUPLEX LOW EXT ANGELITA (07/14/2024 9:46 AM PERCH MENDER) Anatomical Region Laterality Modality Extremity Vascular Ultraso und 07/14/2024 9:20 AM PERCH MENDER Narrative 07/16/2024 8:38 PM PERCH MENDER VENOUS DUPLEX IMAGING BILATERAL LOWER EXTREMITY VASCULAR LAB Pat.Name: HAYLEE NIÑO Pat.ID: [id number] .Date: 07/14/2024 Refer.MD: Ashley Guzman Exam Time: [...] EXTREMITY VASCULAR LAB Pat.Name: HAYLEE NIÑO Pat.ID: [id number] .Date: 07/14/2024 Refer.MD: Ashley Guzman Exam Time: [...] * TYPE & SCREEN (07/13/2024 10:27 AM PERCH MENDER) ABO/RH B POSITIVE 07/13/2024 11:54 AM PERCH MENDER [facility] ANTIBODY SCREEN NEGATIVE 07/13/2024 11:54 AM PERCH MENDER [facility] SAMPLE EXPIRATION 07/16/2024,2 359 07/13/2024 11:54 AM [facility] 07/13/2024 10:2 7 AM PERCH MENDER Mary Lou Shi APRN BLOOD BANK TEST ORDERABLES Final Result [facility] [address] [place] [address], [place] [phone] * (ABNORMAL) IRON SAT PANEL (IRON,IBC,%SAT) (07/13/2024 10:27 AM PERCH MENDER) IRON 74 50.0 - 170.0 MCG/DL 07/13/2024 11:41 AM PERCH MENDER [facility] IRON BINDING CAPACITY 118(L) 250 - 450 MCG/DL 07/13/2024 11:41 AM PERCH MENDER [facility] IRON SATURATION 63(H) 20 - 55 % 11:41 AM PERCH MENDER [facility] 07/13/2024 10:2 7 AM PERCH MENDER us Mary Lou Shi APRN LABORATORY Final Resul t [facility] [address] [place] [address], [place] [phone] * (ABNORMAL) VITAMIN B-12 (07/13/2024 10:27 AM PERCH MENDER) VITAMIN B12 S/P/B 1,420(H) 254 - 1,320 PG/ML 07/13/2024 11:58 AM PERCH MENDER [facility] 07/13/2024 10:2 7 AM PERCH MENDER us Mary Lou Shi APRN LABORATORY Final Resul t Performing Organization Address [facility]/ZIP Co de Phone Number [facility] [address] [place] [address], [place] [phone] * (ABNORMAL) RETICULOCYTE CT, AUTO (07/13/2024 10:27 AM PERCH MENDER) Pathologist [facility] RETICULOCYTE COUNT 3.3(H) 0.8 - 2.1 % 07/13/2024 11:28 AM PERCH MENDER [facility] ABSOLUTE RETICULOCYTE 0.09 0.02 - 0.10 x10'6/uL 07/13/2024 11:28 AM PERCH MENDER [facility] IMMATURE RETIC FRACTION 13.7 3.0 - 15.9 % 07/13/2024 11:28 AM PERCH MENDER [facility] RETIC HGB 36.7(H) 28.0 - 35.0 PG 07/13/2024 11:28 AM PERCH MENDER [facility] 07/13/2024 10:2 7 AM PERCH MENDER us Mary Lou Shi MEDICAL CSR LABORATORY Final Resul t [facility] [address] [place] [address], * (ABNORMAL) COMPREHENSIVE METABOLIC PANEL (07/13/2024 10:27 AM PERCH MENDER) Only the most recent of2 resultswithin the time period is included. GLUCOSE 133(H) 70 - 99 MG/DL 07/13/2024 11:41 AM [facility] BUN 3(L) 7 - 18 MG/DL 07/13/2024 11:41 AM [facility] CREATININE S/P/B 0.48(L) 0.55 - 1.02 MG/DL 07/13/2024 11:41 AM [facility] SODIUM S/P/B 131(L) 136 - 145 MMOL/L 07/13/2024 11:41 AM [facility] POTASSIUM S/P/B 3.3(L) 3.5 - 5.1 MMOL/L 07/13/2024 11:41 AM [facility] CHLORIDE S/P/B 102 97 - 115 MMOL/L 07/13/2024 11:41 AM [facility] CO2 26.5 21 - 32 MMOL/L 07/13/2024 11:41 AM [facility] CALCIUM S/P/B 7.2(L) 8.5 - 10.1 MG/DL 07/13/2024 11:41 AM [facility] BILIRUBIN TOTAL S/P/B 0.4 0.2 - 1.2 MG/DL 07/13/2024 11:41 AM [facility] Comment: THIS ASSAY IS NOT RECOMMENDED FOR PATIENTS UNDERGOING TREATMENT WITH ELTROMBOPAG DUE TO THE POTENTIAL FOR FALSELY ELEVATED RESULTS. TOTAL PROTEIN S/P/B 4.4(L) 6.4 - 8.2 G/DL 07/13/2024 11:41 AM [facility] ALBUMIN S/P/B 1.1(L) 3.4 - 5.0 G/DL 07/13/2024 11:41 AM [facility] AST 12(L) 15 - 37 U/L 07/13/2024 11:41 AM [facility] ALT 15 14 - 55 U/L 07/13/2024 11:41 AM [facility] ALKALINE PHOSPHATASE S/P/B 91 50 - 136 U/L 07/13/2024 11:41 AM [facility] ANION GAP 2.5 2 - 10 MMOL/L 07/13/2024 11:41 AM [facility] BUN CREATININE RATIO 6.2 6 - 26 07/13/2024 11:41 AM [facility] A/G RATIO 0.3(L) 1.0 - 2.0 RATIO 07/13/2024 11:41 AM [facility] GFR ESTIMATE >90 >90 ML/MIN/1.7 3 M2 07/13/2024 11:41 AM [facility] Comment: NOTE: eGFR is not calculated for patients <18 years of age or gender unknown. This is an estimated GFR calculation using the new CKD EPI creatinine equation without race and so does not require a correction factor for race. This estimated GFR should not be used for calculating drug doses. 07/13/2024 10:2 7 AM PERCH MENDER us Mary Lou Shi MEDICAL CSR LABORATORY Final Resul t [facility] [address] [place] [address], [place] [phone] * (ABNORMAL) FOLIC ACID SERUM (07/13/2024 10:27 AM PERCH MENDER) FOLATE 2.6(L) 3.1 - 17.5 NG/ML 07/13/2024 11:58 AM PERCH MENDER [facility] 07/13/2024 10:2 7 AM PERCH MENDER us Mary Lou Shi MEDICAL CSR LABORATORY Final Resul t Performing Organization Address City/[facility] Co de Phone Number [facility] [address] [place] [address], [place] [phone] * TROPONIN, QUANT (07/13/2024 10:27 AM PERCH MENDER) Only the most recent of3 resultswithin the time period is included. [facility] TROPONIN I HIGH SENSITIVITY 23 <54 ng/L 07/13/2024 11:41 AM PERCH MENDER [facility] Comment: HIGH DOSES OF BIOTIN, TROPONIN-SPECIFIC AUTOANTIBODIES, AND ANTIBODY THERAPY CONTAINING HAMA MAY INTERFERE WITH THIS TEST RESULT. CORRELATION TO CLINICAL HISTORY AND PRESENTATION RECOMMENDED. 07/13/2024 10:2 7 AM PERCH MENDER us Mary Lou Meza Jose Guadalupe MEDICAL CSR LABORATORY Final Resul t Performing Organization Address [facility] Co de Phone Number [facility] [address] [place] [address], [place] [phone] * FERRITIN (07/13/2024 10:27 AM PERCH MENDER) Pathologist [facility] FERRITIN 293.9 8.0 - 388.0 NG/ML 07/13/2024 11:58 AM PERCH MENDER [facility] 07/13/2024 10:2 7 AM PERCH MENDER us Mary Lou Shi MEDICAL CSR LABORATORY Final Resul t [facility] [address] [place] [address], [place] [phone] * (ABNORMAL) CALCIUM, IONIZED BG (INPATIENT ONLY) (07/13/2024 1:07 AM PERCH MENDER) Pathologist [facility] CALCIUM IONIZED 1.10(L) 1.16 - 1.30 MMOL/L 07/13/2024 5:57 AM PERCH MENDER [facility] 07/13/2024 1:07 AM PERCH MENDER us Brina Galloway DO LABORATORY Final Result [facility] [address] [place] [address], [place] [phone] * OSMOLALITY, BLOOD (07/13/2024 12:46 AM PERCH MENDER) [facility] OSMOLALITY (S/P/B) 276 270 - 290 MOSM/KG 07/13/2024 1:02 AM PERCH MENDER [facility] 07/13/2024 12:4 6 AM PERCH MENDER us Brina Galloway DO LABORATORY Final Result [facility] [address] [place] [address], * (ABNORMAL) TSH W/REFLEX (07/12/2024 11:40 PM PERCH MENDER) Pathologist [facility] TSH 7.020(H) 0.358 - 3.74 uIU/ML 07/13/2024 12:32 AM PERCH MENDER [facility] Comment: HIGH DOSES OF BIOTIN MAY INTERFERE WITH THIS TEST RESULT. CORRELATION TO CLINICAL HISTORY AND PRESENTATION RECOMMENDED. 07/12/2024 11:4 0 PM PERCH MENDER us Mary Lou Shi APRN LABORATORY Final Resul t Performing Organization Address [facility] Co de Phone Number [facility] [address] [place] [address], [place] [phone] * (ABNORMAL) D-DIMER, QUANTITATIVE (07/12/2024 11:40 PM PERCH MENDER) D-DIMER 1,055(HH) 0 - 500 ng{FEU}/mL 07/13/2024 12:02 AM PERCH MENDER [facility] Comment: D-Dimer values less than or [...] Call: DDIMR called 07/13/2024 00:05 AM to [facility] 3 MED/SURG ([address]/DINH VILLARREAL) by [id number]. Read Back: Yes 07/12/2024 11:4 0 PM PERCH MENDER us Brina Galloway DO LABORATORY Final Result Performing Organization Address [facility] Co de Phone Number [facility] [address] [place] [address], [place] [phone] * THYROXINE, FREE (FT4) (07/12/2024 11:40 PM PERCH MENDER) FREE T4 1.06 0.76 - 1.46 NG/DL 07/13/2024 12:49 AM PERCH MENDER [facility] 07/12/2024 11:4 0 PM PERCH MENDER us Brina Galloway DO LABORATORY Final Result Performing Organization Address City/[facility]/ZIP Co de Phone Number [facility] [address] [place] [address], [place] [phone] * (ABNORMAL) PHOSPHORUS, INORGANIC PHOSPHATE (07/12/2024 11:40 PM [facility]) PHOSPHORUS 2.0(L) 2.5 - 4.9 MG/DL 07/13/2024 12:08 AM [facility] 07/12/2024 11:4 0 PM [facility] us Mary Lou Meza Jose Guadalupe HOOD LABORATORY Final Resul t Performing Organization Address City/[facility]/ZIP Co de Phone Number [facility] [address] [place] [address], [place] [phone] * MAGNESIUM (07/12/2024 11:40 PM [facility]) MAGNESIUM 2.2 1.8 - 2.4 MG/DL 07/13/2024 12:08 AM [facility] 07/12/2024 11:4 0 PM [facility] us Mary Lou Shi APRN LABORATORY Final Resul t Performing Organization Address City/[facility]/ZIP Co de Phone Number [facility] [address] [place] [address], [place] [phone] * CK (CPK) (07/12/2024 11:40 PM [facility]ER) CPK 65 21 - 215 U/L 07/13/2024 12:08 AM [facility] 07/12/2024 11:4 0 PM [facility] us Barreto Derrick Jose Guadalupe HOOD LABORATORY Final Resul t [facility] [address] [place] [address], [place] [phone] * CT HEAD WO CON (07/12/2024 6:08 PM [facility]ER) Anatomical Region Laterality Modality Head Computed Tomogra phy 07/12/2024 6:32 PM [facility]ER Impressions 07/12/2024 6:37 PM [facility]ER IMPRESSION: Probable small vessel disease. Referred By: Interpreted By: Hero Tierney MD, 07/12/2024 6:32 PM Narrative 07/12/2024 6:37 PM [facility] [address] [place], [place] [address] EXAM: CT HEAD WO CON DATE: 07/12/2024 [...] Procedure Note Hero Tierney MD - 07/12/2024 [facility] [address] [place], [place] [address] EXAM: CT HEAD WO CON DATE: 07/12/2024 [...] * SODIUM URINE RANDOM (07/12/2024 3:21 PM [facility]) NA RANDOM (U) 9 MMOL/L 07/13/2024 8:47 AM [facility] Comment:REFERENCE RANGE NOT ESTABLISHED URINE SPECIMEN / Unknown 07/12/2024 3:21 PM [facility]ER Brina Galloway DO URINE ORDERABLES Final Resul t [facility] [address] [place] [address], [id number] * (ABNORMAL) URINALYSIS (07/12/2024 3:21 PM [facility]ER) SPECIMEN TYPE URINE CLEAN CATCH 07/12/2024 3:25 PM [facility] COLOR (U) YELLOW 07/12/2024 4:05 PM [facility] TRANSPARENCY TURBID 07/12/2024 4:05 PM [facility] SPECIFIC GRAVITY (U) 1.003 1.001 - 1.030 07/12/2024 4:05 PM [facility] U PH 6.0 5.0 - 9.0 07/12/2024 4:05 PM [facility] LEUKOCYTES (U) 250(A) NEGATIVE 07/12/2024 4:05 PM [facility] NITRITES NEGATIVE NEGATIVE 07/12/2024 4:05 PM [facility] PROTEIN RANDOM (U) NEGATIVE <30 MG/DL 07/12/2024 4:05 PM [facility] GLUCOSE (U) NORMAL NORMAL MG/DL 07/12/2024 4:05 PM [facility] KETONES MG/DL (U) TRACE(A) NEGATIVE MG/DL 07/12/2024 4:05 PM [facility] UROBILINOGEN 6.0(A) NORMAL MG/DL 07/12/2024 4:05 PM [facility] BILIRUBIN (U) NEGATIVE NEGATIVE MG/DL 07/12/2024 4:05 PM [facility] BLOOD (U) 1+(A) NEGATIVE 07/12/2024 4:05 PM [facility] WBC/HPF 3 <6 /HPF 07/12/2024 4:05 PM [facility] RBC/HPF 5 <6 /HPF 07/12/2024 4:05 PM [facility] BACTERIA (U) MODERATE(A) NONE /HPF 07/12/2024 4:05 PM [facility] CA OXALATE CRYSTALS RARE /HPF 07/12/2024 4:05 PM [facility] SQUAMOUS EPITHELIALS RARE /HPF 07/12/2024 4:05 PM [facility] URINE SPECIMEN OBTAINED BY CLEAN CATCH PROCEDURE / Unknown 07/12/2024 3:21 PM PERCH MENDER us Delta LUA URINE ORDERABLES Final Resu lt [facility] [address] [place] [address], [place] [phone] * (ABNORMAL) CULTURE URINE (07/12/2024 3:21 PM PERCH MENDER) SPEC DESCRIPTION URINE CLEAN CATCH 07/12/2024 5:04 PM PERCH MENDER [facility] SPECIAL REQUESTS NO SPECIAL REQUEST 07/12/2024 5:04 PM PERCH MENDER [facility] CULTURE RESULT 50,000-100,00 0 COL/ML ESCHERICHIA COLI (A) 07/14/2024 8:05 AM PERCH MENDER [facility] CULTURE RESULT 50,000-100,00 0 COL/ML PROTEUS MIRABILIS (A) 07/14/2024 8:05 AM [facility] URINE SPECIMEN OBTAINED BY CLEAN CATCH PROCEDURE / Unknown 07/12/2024 3:21 PM PERCH MENDER 07/12/2024 5:38 PM PERCH MENDER Narrative Organism Antibiotic Method Susceptibility Escherichia coli [...] BRYN (VITEK) <=2: Sensitive Proteus mirabilis AMPICILLIN/SULBACTAM RBYN (VITEK) <=2: Sensitive Proteus mirabilis CEFTRIAXONE BRYN [...] MICA HURTADO Final Result Performing Organization Address [facility] Co de Phone Number [facility] [address] [place] [address], * OSMOLALITY, URINE (07/12/2024 3:21 PM PERCH MENDER) OSMOLALITY (U) 83 50 - 1,200 MOSM/KG 07/12/2024 8:12 PM PERCH MENDER [facility] URINE SPECIMEN / Unknown 07/12/2024 3:21 PM PERCH MENDER Brina Galloway DO URINE ORDERABLES Final Resul t Performing Organization Address [facility] Co de Phone Number [facility] [address] [place] [address], [place] [phone] * (ABNORMAL) PRO-BRAIN NATRIURETIC PEPTIDE (07/12/2024 2:18 PM PERCH MENDER) PRO-B TYPE NATRIURETIC PEPTIDE 792(H) <125 PG/ML 07/12/2024 2:49 PM PERCH MENDER [facility] Comment: CUT POINTS ESTABLISHED BY INTERNATIONAL [...] 72% FOR ACUTE CHF. 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: : 1960 Requested By: PRINCESS WILLIAM Order Number: [id number] Reading MD: Pau Aguero Measurements Intervals [place] Rate: 96 P: 33 MS: 136 QRS: -3 QRSD: 68 T: 66 QT: 340 QTc: 430 Interpretive Statements SINUS RHYTHM LOW QRS VOLTAGE [QRS DEFLECTION < 0.5/1.0 mV IN LIMB/CHEST LEADS] Possible SEPTAL MYOCARDIAL INFARCTION , OF INDETERMINATE AGE [40+ ms Q WAVE IN V1/V2] No previous ECG available for comparison H MENDER Procedure Note Pau Aguero MD - 07/12/[address] Test Date: 2024-07-12 Pat Name: HAYLEE SALINAS Department: 41 Room: [id number] Gender: Female Visual Merchandiser: : 1960 Requested By: PRINCESS WILLIAM Order Number: [id number] Reading MD: Pau Aguero Measurements Intervals [place] Rate: 96 P: 33 MS: 136 QRS: -3 QRSD: 68 T: 66 QT: 340 QTc: 430 Interpretive Statements SINUS RHYTHM LOW QRS VOLTAGE [QRS DEFLECTION < 0.5/1.0 mV IN LIMB/CHEST LEADS] Possible SEPTAL MYOCARDIAL INFARCTION , OF INDETERMINATE AGE [40+ ms QWAVE IN V1/V2] No previous ECG available for comparison H MENDER us Delta Baeza PA ECG ORDERABLES Final Resul t [facility] ([facility] RAD * XR CHEST PORTABLE (07/12/2024 1:52 PM PERCH MENDER) Anatomical Region Laterality Modality Chest Radiographic Flavia ging 07/12/2024 2:23 PM PERCH MENDER Impressions 07/12/2024 2:24 PM PERCH MENDER =====IMPRESSION:===== 1. Minimal atelectatic changes at the lung bases. No airspace consolidation or pleural effusion. Ordered By: DELTA BAEZA Interpreted By: Leonardo Bernard MD, 07/12/2024 2:23 PM Narrative 07/12/2024 2:24 PM PERCH MENDER [address] [address] Examination: Chest x-ray 1 view Exam date/time: 07/12/2024 1:32 PM Reason For Exam: genearlized weakness Comparison: None Technique: Upright AP view of the chest demonstrated. Findings: Patient somewhat rotated. Heart size within normal limits. Pulmonary vasculature does not appear congested. Minimal atelectatic change in the lung bases. No airspace consolidation. No pleural effusion. No hyperinflation. Procedure Note Leonardo Bernard MD - 07/12/2024 [facility] [address] [place], [place] [address] Examination: Chest x-ray 1 view Exam date/time: [...] Bernard MD, 07/12/2024 2:23 PM Delta Baeza [place] GENERAL IMAGING Final Resul t * (ABNORMAL) POCT glucose (07/12/2024 12:56 PM PERCH MENDER) GLUCOSE POC 204(H) 70 - 99 mg/dL 07/12/2024 1:08 PM PERCH MENDER [facility] 07/12/2024 12:5 6 PM PERCH MENDER Attending Physician Emergency MD POCT ORDERABLES - DEVICE Final Result [facility] [address] [place] [address], [place] [phone] from Last 3 Months Insurance [employer] Advance Directives * Full Code (Latest Code Status on File) Date Activated Date Inactivated Comments 07/12/2024 8:50 PM 07/17/2024 3:59 PM * Full Code Date Activated Date Inactivated Comments 10/30/2022 1:54 PM 07/12/2024 12:49 PM Care Teams Cisco Engineer Relationship Specialty Start Date End Date Ashley Guzman MD PCP - General FAMILY PRACTICE 10/25/22
[2024-08-07 17:13] LABS: Partial Thromboplastin Time > 200.0 Seconds (22.3-36.8)
--- NOTE | 2024-08-07 22:09 | P.PNCROSS_ITS ---
Event Note Event Note Event Note: Was called by bedside nursing that blood pressure ranging 80/60 to 96/85. Rosalva fischer was given a 1 time dose of Lasix 20 mg IV push while in the ED. She is being treated for bilateral DVTs and PE currently on a heparin infusion. We will go ahead and give her a 500 mL normal saline bolus over 2 hours for her hypotension and net negative fluid balance. We will continue to monitor.
[2024-08-07] MEDS: SODIUM CHLORIDE 0.9% IV 500 ML 250 ML IV CONT (22:41)
[2024-08-08] VITALS (37 sets, daily range): BP systolic 60–128; BP diastolic 39–96; PULSE 94–128; RESP 14–26; TEMP 34.3–36.6; O2SAT 94–100; BMI 18.9
[2024-08-08 01:49] LABS: Partial Thromboplastin Time > 200.0 Seconds (22.3-36.8)
[2024-08-08] MEDS: ONDANSETRON HCL ODT 4 MG TABLET PO (02:12)
[2024-08-08] MEDS: HYDROcodone/acetaminophen (*CRX) 5-325 MG TABLET 1 TAB PO (02:18)
[2024-08-08 04:35] LABS: Basophils Percent Auto 0.3 % (0.2-1.2); Hematocrit 21.9 % (37.0-47.0); Hemoglobin 7.5 g/dL (12.0-15.0); Immature Granulocyte Absolute 0.06 K/mm3 (0.00-0.031); Immature Granulocyte Percent A 0.5 % (0-0.5); Lymphocytes Absolute Auto 2.58 K/mm3 (0.9-3.2); Lymphocytes Percent Auto 22.2 % (18.3-44.2); Mean Corpuscular HGB Conc 34.2 g/dl (32-36); Mean Corpuscular Hemoglobin 34.2 pg (26-34); Mean Platelet Volume 9.8 fl (7.4-10.4); Monocytes Absolute Auto 0.7 K/mm3 (0.1-0.6); Monocytes Percent Auto 6.1 % (2.6-8.5); Neutrophils Absolute Auto 8.2 K/mm3 (1.3-6.7); Neutrophils Percent Auto 70.9 % (45.5-73.1); Nucleated Red Blood Cells Perc 0.2 % (0.0-0.2); Platelet Count Result 318 k/mm3 (150-375); Red Blood Count 2.19 M/mm3 (4.2-5.4); Red Cell Distribution Width 14.1 % (11.5-14.5); White Blood Count 11.6 K/mm3 (4.5-10.0)
[2024-08-08 04:47] LABS: Anion Gap 7 mmol/L (4-12); Blood Urea Nitrogen 8 mg/dL (7-17); Calcium 6.8 mg/dL (8.4-10.2); Carbon Dioxide 23 mmol/L (22-30); Chloride 101 mmol/L (98-107); Estimated CRCL calculation 118 ml/min; Estimated Glomerular Filt Rate > 60; Glucose 120 mg/dL (65-110); Potassium 3.3 mmol/L (3.4-5.0); Sodium 131 mmol/L (137-145)
--- NOTE | 2024-08-08 08:23 | ECG_ITS ---
Test Date: 2024-08-08 09:33:56 Measurements Intervals [place] Rate: 117 P: 23 WV: 128 QRS: -6 QRSD: 67 T: 60 QT: 341 QTc: 477 Interpretive Statements SINUS TACHYCARDIA WITH OCCASIONAL SUPRAVENTRICULAR PREMATURE COMPLEXES LOW QRS VOLTAGE Electronically Signed On 08-09-2024 11:37:31 CDT by Michael Artis D.O
[2024-08-08] MEDS: FOLIC ACID 1 MG TABLET PO (09:05)
[2024-08-08] MEDS: NEOMYCIN/POLYMYXIN/BACITRACIN OINTMENT 15 GM TUBE 1 APPLIC TOPICAL (09:05)
[2024-08-08] MEDS: GABAPENTIN 100 MG CAPSULE PO ×2 (09:05→12:33)
[2024-08-08] MEDS: LORATADINE 10 MG TABLET PO (09:05)
[2024-08-08 10:04] LABS: Partial Thromboplastin Time > 200.0 Seconds (22.3-36.8)
[2024-08-08] MEDS: SODIUM CHLORIDE 0.9% IV 500 ML IV CONT ×2 (10:09→12:33)
--- NOTE | 2024-08-08 10:37 | PCSTNOTE ---
Please refer to the Bedside Swallow Evaluation in the EMR. Please note, silent aspiration cannot be ruled out at bedside.
[2024-08-08] MEDS: POTASSIUM CHLORIDE INJ 40 MEQ in SODIUM CHLORIDE 0.9% IV 500 ML 130 MEQ IVPB (10:47)
[2024-08-08 12:04] LABS: Troponin I < 0.012 ng/mL (0.000-0.034)
--- NOTE | 2024-08-08 12:16 | PM.IMHP ---
H&P: HPI History of Present Illness Date/Time: 08/07/24 1321 Chief Complaint: weakness, sob Narrative: Interval history: 64 y. o female with PMH/o seasonal allergies, neuropathy, cardiac stents (unsure how many, unsure when) was brought to ED per ems from [facility] for complains of SOB. She had been having some intermitted cough. NO chest pain, no n/v/d. Pt reports that she had heart stents while ago but have not seen under sheriff in awhile. Denies chf\. not on statin. \Report rt leg swelling and pain for about 1 month. Smoking on and off for many years, determined to quit. 1-2 beers, sometimes more on a weekends. not daily. Typically active. Neuropathy- worse to jenny hands for which she is taking pain meds and gabapentin. Chest xray in ed: MPRESSION: 1. Airspace opacities at the lung bases, consistent with atelectasis versus pneumonia. 2. Small pleural effusions. 3. Emphysema. Chest cta: IMPRESSION: 1. Acute right upper lobe pulmonary embolus. 2. Mild pulmonary edema with small pleural effusions. 3. Moderate emphysema. 4. Perihepatic ascites. WBC 6.9, hg/hct 9.9/28.2, plt 324, ph 7.538, pco2 29.8, o2 48.9, she was on ra- placed on 2l per nc Pt is comfortable on exam and reports no discomfort, no chest pain, no sob. Per rn report, some difficulties swallowing, will add speech eval heparin drip was started. Review of Systems Review of Systems: All systems reviewed & are unremarkable except as noted in HPI and below [facility] Family History Family History Father Diabetes mellitus Mother Diabetes mellitus Social History Social History Smoking status: Former smoker Tobacco type: cigarettes Second hand tobacco smoke exposure: Yes Alcohol intake: current Drinks per week: 0 Substance use: never Substance use type: does not use Do You Feel Safe in your Home?: Yes Lack of Transportation: YES Lack of Food: Never True Current Housing: I Have Housing Concerned About Future Housing: No Difficulty Paying Gas/Electric Bills: No Difficulty Paying for Meds: No Currently Unemployed: No Education: Associate Degree Difficulty w/ Childcare or Family Care: No Spiritual care concerns: No Meds Home Medications and Allergies Home Medications ?Medication ?Instructions ?Recorded ?Confirmed ?Type acetaminophen 325 mg tablet (Aphen) 650 mg PO ONCE PRN fever or pain 08/07/24 08/07/24 History arginine (L-arginine) 1 ea PO .3 x a day at meals wound 08/07/24 08/07/24 History to left posterior thigh aspirin 81 mg chewable tablet 81 mg PO DAILY 08/07/24 08/07/24 History (Children's Aspirin) carvedilol 6.25 mg tablet 6.25 mg PO BID 08/07/24 08/07/24 History cetirizine 10 mg capsule (All Day 10 mg PO DAILY 08/07/24 08/07/24 History Allergy (cetirizine)) folic acid 1 mg tablet 1 mg PO DAILY 08/07/24 08/07/24 History gabapentin 100 mg capsule 100 mg PO TID polyneuropathy 08/07/24 08/07/24 History hydrocodone 5 mg-acetaminophen 325 1 tablet PO Q4H PRN pain 08/07/24 08/07/24 History mg tablet ondansetron 4 mg disintegrating 4 mg PO Q6H PRN nausea/vomiting 08/07/24 08/07/24 History tablet Allergies Allergy/AdvReac Type Severity Reaction Status Date / Time No Known Allergies Allergy Verified 08/07/24 07:37 Vital Signs Vital Signs - 24 hr 08/07/24 14:00 08/07/24 15:56 08/07/24 16:00 Temperature 98.5 F Pulse Rate 109 H 114 H Respiratory Rate 18 Blood Pressure 95/80 L Pulse Oximetry 97 97 Oxygen Delivery Nasal Cannula Oxygen Flow Rate 1 08/07/24 16:00 08/07/24 18:00 08/07/24 20:00 Temperature 98.2 F Pulse Rate 103 H 105 H 106 H Respiratory Rate 20 Blood Pressure 88/68 L Pulse Oximetry 96 Oxygen Delivery Oxygen Flow Rate 08/07/24 20:00 08/07/24 20:00 08/07/24 22:00 Temperature Pulse Rate 102 H 115 H Respiratory Rate Blood Pressure Pulse Oximetry 96 Oxygen Delivery Nasal Cannula Oxygen Flow Rate 1 08/07/24 22:06 08/07/24 22:07 08/07/24 22:08 Temperature Pulse Rate 109 H Respiratory Rate Blood Pressure 83/59 L 80/60 L Pulse Oximetry Oxygen Delivery Oxygen Flow Rate 08/07/24 23:45 08/08/24 00:00 08/08/24 00:00 Temperature 97.6 F Pulse Rate 115 H 115 H Respiratory Rate 18 Blood Pressure 82/56 L Pulse Oximetry 96 96 Oxygen Delivery Nasal Cannula Oxygen Flow Rate 1 08/08/24 02:00 08/08/24 04:00 08/08/24 04:00 Temperature 97.9 F Pulse Rate 109 H 94 111 H Respiratory Rate 20 Blood Pressure 85/67 L Pulse Oximetry 96 Oxygen Delivery Oxygen Flow Rate 08/08/24 04:00 08/08/24 06:00 08/08/24 07:54 Temperature 97.7 F Pulse Rate 115 H 120 H Respiratory Rate 14 Blood Pressure 86/68 L Pulse Oximetry 96 96 Oxygen Delivery Nasal Cannula Oxygen Flow Rate 1 08/08/24 08:00 08/08/24 09:41 08/08/24 10:45 Temperature Pulse Rate Respiratory Rate Blood Pressure 65/50 L 92/66 L Pulse Oximetry 96 Oxygen Delivery Nasal Cannula Oxygen Flow Rate 2 08/08/24 11:29 Temperature 97.4 F L Pulse Rate 120 H Respiratory Rate 16 Blood Pressure 83/63 L Pulse Oximetry 94 Oxygen Delivery Oxygen Flow Rate Exam Narrative: on 2 l per nc, calm and comfortable Const: General: comfortable Eyes: General: appearance normal, both eyes and all related structures Resp: Effort & Inspection: normal respiratory effort Other: diminished jenny bases Cardio: Rate: regular rate Rhythm: regular rhythm GI: Auscultation: normal bowel sounds Skin: General skin exam: normal color Other: some erythema to rt lower extremity, slightly edematous Extrem: Other: some erythema to rt lower extremity, slightly edematous, negative sallie sign Psych: Mental Status: mental status grossly normal Affect: normal affect H&P: Results Labs Labs: Short CBC 08/08/24 Range/Units 04:19 WBC 11.6 H (4.5-10.0) K/mm3 Hgb 7.5 L (12.0-15.0) g/dL Hct 21.9 L (37.0-47.0) % Plt Count 318 (150-375) k/mm3 BMP 08/08/24 04:19 Sodium 131 L Potassium 3.3 L Chloride 101 Carbon Dioxide 23 BUN 8 Creatinine 0.35 L Glucose 120 H Calcium 6.8 L Cardiac Enzymes 08/08/24 Range/Units 11:25 Troponin I < 0.012 (0.000-0.034) ng/mL Assessment and Plan Assessment and plan (1) Pulmonary embolism: Code(s): I26.99 - Other pulmonary embolism without acute cor pulmonale Status: Acute (2) Acute hypoxic respiratory failure: Code(s): J96.01 - Acute respiratory failure with hypoxia Status: Acute (3) Tobacco abuse counseling: Code(s): Z71.6 - Tobacco abuse counseling Status: Acute Plan 64 y.o female admitted for sob from prison. Chest xray showed small right pleural effusion. CHEST X-RAY showed atelectasis vs PNEUMONIA, PLEURAL EFFUSION, CTA: RIGHT UPPER LOBE PULMONARY EMBOLISM. Pt was started on heparin drip and admitted to IMU for close monitoring. Pt never been to this facility- no records available. - continue respiratory and hemodynamic support - oxygen supplementation if needed - add Echo, pro-BNP, consider card. consult as pt will need to start f/u with cardiology - daily labs - continue heparin drip for now - doppler BLE to r/u dvts review home meds and restart - nicotine patch - smoking cessation counselling completed. Per RN report, some difficulties swallowing, will add speech eval. Quality VTE Prophylaxis VTE prophylaxis: pharmacologic ordered Hospitalist MIPS Advance Care Plan I have confirmed that the patient's Advanced Care Plan is present, code status is documented, or surrogate decision maker is listed in patient medical record.: Yes Medication Reconciliation I have utilized all available resources to obtain, update and review the patients current medications (includes all prescriptions, OTC, herbals, cannabis, and nutritional supplements).: Yes
[2024-08-08 12:38] LABS: Lactic Acid Reflex 5.4 mmol/L (0.7-2.0)
[2024-08-08 13:30] LABS: Reflex Lactic Acid Yes or No Add Lactic
[2024-08-08] MEDS: HEPARIN SOD/D5W 100 UNITS/ML 25,000 UNITS/250 ML BAG 8 UNITS IV CONT (13:38)
[2024-08-08] MEDS: ALBUMIN HUMAN 5% 25 GM/500 ML BTL IV CONT (14:15)
--- NOTE | 2024-08-08 14:28 | P.CONIN_ITS ---
Assessment and Plan Assessment and plan (1) Severe sepsis: Code(s): A41.9 - Sepsis, unspecified organism; R65.20 - Severe sepsis without septic shock Status: Acute Assessment and Plan: Patient presents from the long term with shortness of breath, right upper lobe PE, cough -now with hypotension, elevated lactic acid of 5.4 -patient has received 500 mL IV fluid bolus in the intermediate Unit +500 mL IV fluid overnight for a total of 1000 ml -will give additional 500 mL IV fluid bolus in the ICU and 5% albumin 500 mL. -will place central line for possible vasopressors -started on cefepime, vancomycin and doxycycline (08/08) -08/08: obtain urinalysis/culture -08/08: Obtain blood cultures (2) Acute hypoxic respiratory failure: Code(s): J96.01 - Acute respiratory failure with hypoxia Status: Acute Assessment and Plan: Acute hypoxic respiratory failure currently on 2 L oxygen via nasal cannula with adequate O2 sats -etiology bilateral pleural effusion, pneumonia, emphysema/COPD -emphysema seen on chest CTA -will start bronchodilators Xopenex and Atrovent -continue supplemental oxygen -patient may require bilateral thoracentesis (3) Pulmonary embolism: Code(s): I26.99 - Other pulmonary embolism without acute cor pulmonale Status: Acute Assessment and Plan: CTA chest showed right upper lobe pulmonary embolus -troponins x2 were negative -proBNP was 989 08/07/2024: Echocardiogram Summary 1. Left ventricular chamber dimension is normal. 2. Left ventricular systolic function is normal, estimated at 60-65%. 3. There is moderately increased left ventricular wall thickness. 4. The left ventricular diastolic function is grade I diastolic dysfunction. 5. Right ventricular chamber dimension is normal. 6. Right ventricular systolic function is normal. 7. There is mild tricuspid valve regurgitation. 8. Left pleural effusion present. (4) Cholelithiasis: Code(s): K80.20 - Calculus of gallbladder without cholecystitis without obstruction Status: Acute (5) Pleural effusion: Code(s): J90 - Pleural effusion, not elsewhere classified Status: Acute (6) Anemia: Code(s): D64.9 - Anemia, unspecified Status: Acute Assessment and Plan: Hemoglobin dropped from 9.9 on admission to 7.5 this morning (08/08) -patient on heparin infusion for DVT and PE -will continue to monitor H&H q.6 hours -will transfuse if immediately < 7.0 (7) DVT (deep venous thrombosis): Code(s): I82.409 - Acute embolism and thrombosis of unspecified deep veins of unspecified lower extremity Status: Acute Assessment and Plan: 08/07/2024: Bilateral lower extremity venous Doppler showed bilateral DVTs -continue heparin infusion Plan DVT prophylaxis: Heparin infusion Stress ulcer prophylaxis: Protonix Nutrition: Code Status: Full code Critical Care Time Spent: 51 minutes Discussed with patient and her daughter at bedside, updated them with patient's condition and plan of care. Discuss code status and both the patient and her daughter stated that they want the patient to be a full code Due to a high probability of clinically significant, life threatening deterioration, the patient required my highest level of preparedness to intervene emergently and I personally spent this critical care time directly and personally managing the patient. This critical care time included obtaining a history; examining the patient; pulse oximetry; ordering and review of studies; arranging urgent treatment with development of a management plan; evaluation of patient's response to treatment; frequent reassessment; and discussions with other providers. It was exclusive of separately billable procedures and treating other patients and teaching time. Please see Assessment and Plan section and the rest of the note for further information on patient assessment and treatment This dictation may have been done utilizing a voice recognition system. Attempts have been made to correct errors. However, there may be uncorrected grammatical, spelling, and recognitions errors present. System Operator Consult Note Consult date: 08/08/24 Reason for consult: Severe sepsis, pneumonia, pulmonary embolism, bilateral pleural effusions, HPI: Madison Youssef is a 64 year old female with past medical history of neuropathy, coronary artery disease status post stents unknown when and where, recent COVID, shortness of breath and was admitted to [facility] on 07/12/2024, was transferred to rehab/long term on 07/25/2024. Patient now presented to the ED on 08/08/2024 with lower extremity swelling, cough, shortness of breath, pleural effusions on chest x-ray done at the long term. In the ER patient was tachycardic, good O2 sats on room air. In the ER pertinent labs were WBC of 6.9, hemoglobin of 9.9, platelet count 324, INR of 1.2. Sodium 130, potassium 3.6, CO2 30, BUN 10, creatinine 0.35, glucose 89, calcium 7.2, normal LFTs, proBNP of 989, albumin of 1.6. -08/07: CTA chest showed acute right upper lobe pulmonary embolism, minimal pulmonary edema with small pleural effusion, moderate emphysema, perihepatic ascites -08/07: Venous Dopplers : positive for bilateral lower extremity DVTs Repeat CTA chest abdomen and pelvis 08/08/2024: Patient was transferred to the ICU hypotension, and received a total of 500 mL IV fluids. Lactic of 5.4. CTA chest abdomen and pelvis showed worsening of bilateral pleural effusions, stable pulmonary embolism, interval development of consolidation of the entirety of the right middle and right lower lobes. Interval development of significant anasarca. Fluid collection originating within the left hemipelvis of uncertain origin, massive bladder distention for which and Paula decompressions recommended. Cholelithiasis as well as gallbladder distension Patient seen and examined upon and the ICU, is awake, alert, able to answer a few questions by nodding her head. Follows simple commands in all extremities. Systolic blood pressures in the 80s, heart rate in the 110s.. Patient has low body temperature. Complains of shortness of breath, cough, denies any abdominal pain, nausea, vomiting at this time. Caceres catheter was placed prior to transfer to the ICU with adequate urine output Review of Systems 2 Review of Systems: All systems reviewed & are unremarkable except as noted in HPI and below PMFSH Past Medical History Medical History (Updated 08/08/24 @ 14:51 by Clotilde Lam MD) DVT prophylaxis Family History Family History Father Diabetes mellitus Mother Diabetes mellitus Social History Social History Smoking status: Former smoker Tobacco type: cigarettes Second hand tobacco smoke exposure: Yes Alcohol intake: current Drinks per week: 0 Substance use: never Substance use type: does not use Do You Feel Safe in your Home?: Yes Lack of Transportation: YES Lack of Food: Never True Current Housing: I Have Housing Concerned About Future Housing: No Difficulty Paying Gas/Electric Bills: No Difficulty Paying for Meds: No Currently Unemployed: No Education: Associate Degree Difficulty w/ Childcare or Family Care: No Spiritual care concerns: No Meds Home Medications and Allergies Home Medications ?Medication ?Instructions ?Recorded ?Confirmed ?Type acetaminophen 325 mg tablet (Aphen) 650 mg PO ONCE PRN fever or pain 08/07/24 08/07/24 History arginine (L-arginine) 1 ea PO .3 x a day at meals wound 08/07/24 08/07/24 History to left posterior thigh aspirin 81 mg chewable tablet 81 mg PO DAILY 08/07/24 08/07/24 History (Children's Aspirin) carvedilol 6.25 mg tablet 6.25 mg PO BID 08/07/24 08/07/24 History cetirizine 10 mg capsule (All Day 10 mg PO DAILY 08/07/24 08/07/24 History Allergy (cetirizine)) folic acid 1 mg tablet 1 mg PO DAILY 08/07/24 08/07/24 History gabapentin 100 mg capsule 100 mg PO TID polyneuropathy 08/07/24 08/07/24 History hydrocodone 5 mg-acetaminophen 325 1 tablet PO Q4H PRN pain 08/07/24 08/07/24 History mg tablet ondansetron 4 mg disintegrating 4 mg PO Q6H PRN nausea/vomiting 08/07/24 08/07/24 History tablet Allergies Allergy/AdvReac Type Severity Reaction Status Date / Time No Known Allergies Allergy Verified 08/07/24 07:37 Vital Signs Vital Signs - 24 hr 08/07/24 15:56 08/07/24 16:00 08/07/24 16:00 Temperature 98.5 F Pulse Rate 114 H 103 H Respiratory Rate 18 Blood Pressure 95/80 L Pulse Oximetry 97 97 Oxygen Delivery Nasal Cannula Oxygen Flow Rate 1 08/07/24 18:00 08/07/24 20:00 08/07/24 20:00 Temperature 98.2 F Pulse Rate 105 H 106 H Respiratory Rate 20 Blood Pressure 88/68 L Pulse Oximetry 96 96 Oxygen Delivery Nasal Cannula Oxygen Flow Rate 1 08/07/24 20:00 08/07/24 22:00 08/07/24 22:06 Temperature Pulse Rate 102 H 115 H Respiratory Rate Blood Pressure 83/59 L Pulse Oximetry Oxygen Delivery Oxygen Flow Rate 08/07/24 22:07 08/07/24 22:08 08/07/24 23:45 Temperature 97.6 F Pulse Rate 109 H 115 H Respiratory Rate 18 Blood Pressure 80/60 L 82/56 L Pulse Oximetry 96 Oxygen Delivery Oxygen Flow Rate 08/08/24 00:00 08/08/24 00:00 08/08/24 02:00 Temperature Pulse Rate 115 H 109 H Respiratory Rate Blood Pressure Pulse Oximetry 96 Oxygen Delivery Nasal Cannula Oxygen Flow Rate 1 08/08/24 04:00 08/08/24 04:00 08/08/24 04:00 Temperature 97.9 F Pulse Rate 94 111 H Respiratory Rate 20 Blood Pressure 85/67 L Pulse Oximetry 96 96 Oxygen Delivery Nasal Cannula Oxygen Flow Rate 1 08/08/24 06:00 08/08/24 07:54 08/08/24 08:00 Temperature 97.7 F Pulse Rate 115 H 120 H Respiratory Rate 14 Blood Pressure 86/68 L Pulse Oximetry 96 96 Oxygen Delivery Nasal Cannula Oxygen Flow Rate 2 08/08/24 08:00 08/08/24 09:41 08/08/24 10:00 Temperature Pulse Rate 122 H 114 H Respiratory Rate Blood Pressure 65/50 L Pulse Oximetry Oxygen Delivery Oxygen Flow Rate 08/08/24 10:45 08/08/24 11:29 08/08/24 12:00 Temperature 97.4 F L Pulse Rate 120 H Respiratory Rate 16 Blood Pressure 92/66 L 83/63 L Pulse Oximetry 94 96 Oxygen Delivery Nasal Cannula Oxygen Flow Rate 2 08/08/24 12:00 Temperature Pulse Rate 111 H Respiratory Rate Blood Pressure Pulse Oximetry Oxygen Delivery Oxygen Flow Rate Exam 2 Narrative: General: Patient is awake, alert, in no acute distress. Looks older than her stated age HEENT:? Pupils equal and reactive, sclera is clear, dry oral mucosa Neck:? Supple Respiratory:? Coarse breath sounds bilateral bases, Rt > Lt, no wheezing, decreased air entry at bases Cardiac:? Sinus tachycardia Abdomen:? Soft, nontender, nondistended, hypoactive bowel sounds Extremities:? Bilateral lower extremity edema, palpable pedal pulses, Neuro:? Patient is awake, alert, follows simple commands, nods to questions other than answering questions Skin:? Dry scaly skin on legs bilateral Psych:? Depressed affect Results Labs 08/08/24 04:19 08/08/24 04:19 Labs: Short CBC 08/08/24 Range/Units 04:19 WBC 11.6 H (4.5-10.0) K/mm3 Hgb 7.5 L (12.0-15.0) g/dL Hct 21.9 L (37.0-47.0) % Plt Count 318 (150-375) k/mm3 BMP 08/08/24 04:19 Sodium 131 L Potassium 3.3 L Chloride 101 Carbon Dioxide 23 BUN 8 Creatinine 0.35 L Glucose 120 H Calcium 6.8 L Cardiac Enzymes 08/08/24 Range/Units 11:25 Troponin I < 0.012 (0.000-0.034) ng/mL Quality VTE Prophylaxis VTE prophylaxis: pharmacologic ordered Hospitalist MIPS Advance Care Plan I have confirmed that the patient's Advanced Care Plan is present, code status is documented, or surrogate decision maker is listed in patient medical record.: Yes Medication Reconciliation I have utilized all available resources to obtain, update and review the patients current medications (includes all prescriptions, OTC, herbals, cannabis, and nutritional supplements).: Yes
--- NOTE | 2024-08-08 14:43 | VASCRN ---
Order received for:PICC Line After review of the chart and the patient assessment, patient is not a candidate for the following reason(s): patient does not have adequate size vessels in either extremity to support a PICC line. Provider notified:Dr. Lam
--- NOTE | 2024-08-08 15:37 | WPDPROCEDUR ---
Procedures Central Line Placement Left Femoral: Central Line Date: 08/08/24 Central Line Time: 15:37 Discussed w/ the patient/family/POA,the placement of a central venous catheter, including its clinical necessity/indication & associated potential risks, benifits and alternatives.: Yes The patient/family/POA understand(s) and acknowledge(s) the need to proceed with central venous catheter insertion as an important element of the patient's clinical management.: Yes Consent: I have discussed with the patient and/or surrogate, the non-emergent placement of a central venous catheter, including its clinical necessity/indication and associated potential risks and complications. The patient and/or surrogate understand(s) and acknowledge(s) the need to proceed with central venous catheter insertion as an important element of the patient's clinical management. Time Out Performed: Yes Patient Position: supine Patient placed on monitor/pulse ox: Yes Provider Prep: mask, sterile gown, sterile gloves, Max. sterile barrier precautions, cap and hand hygiene with conventional soap/water or alcohol based hand rub Central line prep: 2% Chlorhexidine scrub Local anesthesia used: lidocaine 2% Amount of anesthesia used (ml): 3 Sterile US Technique with sterile gel/sterile probe covers: Yes Central line lumen inserted: triple [place]: 7 Length (cm): 20 Depth of Insertion (cm): 20 Post Procedure: sutured in place, good blood return, all ports aspirated, flushed, capped, transparent dressing, hemostatic product, antimicrobial product, securement product and aseptic technique maintained throughout procedure Patient tolerated procedure: well Complications: none
[2024-08-08] MEDS: FENTANYL 2,500MCG/NS250ML(*CRX 2,500 MCG/250 ML BAG IV CONT (16:30)
[2024-08-08] MEDS: MIDAZOLAM 100MG/NS 100ML(*CRX) 100 MG/100 ML BAG IV CONT (16:30)
--- NOTE | 2024-08-08 16:33 | PM.OP ---
Procedure Note - Brief Procedure Note - Brief Date of procedure: 08/08/24 Acute Hypoxic Resp Failure/CHF/Pulmonary Embolism / large bilateral pleural effusions Post-op diagnosis: Same Procedure performed: Bilateral thoracentesis planned, but aborted. Surgeon: Violet Marx MD Findings: large bilateral pleural effusions Description of procedure: During patient positioning, SaO2 dropped and was not accessible. HR also started to drop along with further drop in BP. Our procedure was aborted and emergent intubation is planned. Complications: None Condition: Critical Disposition: ICU
[2024-08-08] MEDS: NOREPINEPHRINE 8 MG/D5W 250 ML 8 MG/250 ML BAG 9.38 MG IV CONT (16:40)
--- NOTE | 2024-08-08 16:52 | P.PCNBED_ITS ---
Procedures Arterial Line Arterial Line Date: 08/08/24 Arterial Line Time: 16:53 Discussed with the patient/family/POA, the placement of an arterial catheter, including its clinical necessity/indication and associated potential risks, benefits and alternatives.: Yes Patient/family/POA and/or understands and acknowledges the need to proceed with the arterial catheter insertion as an important element of the patient's clinical management.: Yes Time Out Performed: Yes Patient Position: supine Transmission System Operator Prep: sterile gown, sterile gloves, mask and hat Site: right and femoral Site Prep: chlorhexidine and sterile drape Skin Anesthesia: 1% lidocaine Technique used: ultrasound-guided Size (Gauge): 14 Length: 12 cm Closure/Dressing: suture, transparent dressing, hemostatic product, antimicrobial product and securement product Patient tolerated procedure: well Complications: none
[2024-08-08 16:58] LABS: Alveolar/Arterial O2 Gradient 286.6 mmHg; Fractional Inspired Oxygen 100 %; HCO3 ABG 18.5 mEq/l (22.0-26.0); PCO2 ABG 29.3 mmHg (35.0-45.0); PO2 ABG 397.1 mmHg (80.0-100.0); PO2 FiO2 Ratio Arterial Blood 3.97 %; pH ABG 7.417 (7.350-7.450)
--- NOTE | 2024-08-08 17:03 | P.PNCROSS_ITS ---
Event Note Event Note Event Note: Discussed with interventional radiologist, an addendum to the CTA abdomen and p sofia was made and the fluid collection within the left hemipelvis is likely hematoma with leading blood likely originating in the left swallow os musculature. (left femoral central line was placed much after the CTA abdomen pelvis was performed) so this should not be considered as a direct causation. Thoracentesis was aborted as patient was apneic and agonal and had to be emergently intubated and placed on mechanical ventilation, she became bradycardic and was given 1 amp of epinephrine, started on Levophed an arterial line was inserted. Heparin was discontinued. 2 units of packed RBCs are going to be transfused stat, check hemoglobin post transfusion and q.6 hours thereafter I discussed at length with the daughter regarding having to stop the heparin infusion due to her bleeding and her left psoas musculature. I also explained to her regarding intubation and blood pressure support medications. Discussed with her code status again to which she wanted her to be a full code at this time
[2024-08-08 17:04] LABS: MRSA (PCR) NOT DETECTED (NOT DETECTE)
[2024-08-08] MEDS: SODIUM BICARBONATE 8.4% 50 MEQ/50 ML SYRINGE 100 MEQ IV PUSH (17:05)
[2024-08-08] MEDS: EPINEPHrine INJ 1 MG/10 ML SYRINGE IV PUSH (17:05)
[2024-08-08] MEDS: DOXYCYCLINE 100 MG/NS 100 ML 100 MG/100 ML BAG IVPB ×2 (17:27→21:08)
[2024-08-08] MEDS: CEFEPIME 2 GM/NS 50 ML 2 GM/50 ML BAG IVPB (17:27)
[2024-08-08] MEDS: SODIUM CHLORIDE 0.9% IV 250 ML 30 ML IV CONT (17:28)
[2024-08-08] MEDS: VANCOMYCIN 1,500 MG/NS 500 ML 1,500 MG/500 ML BAG 250 MG IVPB (17:28)
[2024-08-08 17:34] LABS: Total Hemoglobin < 4.3 g/dL (12.0-18.0)
[2024-08-08 17:37] LABS: Device VENTILATOR; Modified Allen's Test Pass; Site Drawn ARTLINE
[2024-08-08 17:40] LABS: Arterial Blood Gas PEEP 8 cmH2O; Arterial Blood Gas Tidal Volume 480 ml; Arterial Blood Gas Vent Mode CMV; Arterial Blood Gas Ventilator rate 24 /MIN
--- NOTE | 2024-08-08 17:53 | P.PNIM_ITS ---
Progress Note: A&P Assessment and Plan (1) DVT (deep venous thrombosis): Code(s): I82.409 - Acute embolism and thrombosis of unspecified deep veins of unspecified lower extremity Status: Acute (2) Pulmonary embolism: Code(s): I26.99 - Other pulmonary embolism without acute cor pulmonale Status: Acute (3) Anemia: Code(s): D64.9 - Anemia, unspecified Status: Acute (4) Severe sepsis: Code(s): A41.9 - Sepsis, unspecified organism; R65.20 - Severe sepsis without septic shock Status: Acute (5) Acute hypoxic respiratory failure: Code(s): J96.01 - Acute respiratory failure with hypoxia Status: Acute Plan The patient was admitted yesterday due to a pulmonary embolism. The patient was later diagnosed with bilateral DVT. Today, I assumed the care. I had a very long conversation with the daughter today. The patient was recently admitted to [facility] due to leg weakness and later transferred to [facility] for rehab. Of note, the patient has a remote history of CVA and stent placement in the heart. When I assumed the care, the patient had low blood pressure from the previous evening and was given a 500 mL bolus at night. In the morning, the patient's blood pressure was around the 80s. Patient Coreg was on hold. I discussed this with the senior risk analyst, who recommended giving 1L Bolus. The patient's ECHO was not read then, and I gave 500ml Bolus and advised the nursing team to call cardiology and request to read the ECHO. Later, ECHO showed a normal ejection fraction of 60-65% and gave another 500ml bolus. I reviewed wound care notes, which reveal stage 3 decubitus ulcer but no signs of infection. Ordered Lactic acid and calcitonin. With normal EF, no signs of sepsis, and no obstructive evidence of PE, I was skeptical about low blood pressure and small pleural effusion on CTA, which was performed on 08/07. I ordered CTA chest, abdomen, and pelvis, which revealed multiple findings, including worsening pleural effusion, anasarca, and fluid collection in the left hemipelvis. spoke to me, raised concerns about the new findings, and offered to perform pleural effusion if the patient is in ICU. I talked to , who agreed to the transfer. After the transfer to ICU ,the patient was intubated.Later in the evening spoke to me and requested to call [facility] for transfer. Again I spoke to her daughter regards goals of care and had an extensive conversation. For now she wanted everything to be done. I called Kacey at 19:04 and waiting for call back.Rest of management per ICU. Time Spent With Patient Time: 180 minutes Subjective Date/time seen: 08/08/24 17:53 Interval history: Interval history: The patient was admitted yesterday due to a pulmonary embolism. The patient was later diagnosed with bilateral DVT. Today, I assumed the care. I had a very long conversation with the daughter today. The patient was recently admitted to [facility] due to leg weakness and later transferred to [facility] for rehab. Of note, the patient has a remote history of CVA and stent placement in the heart. When I assumed the care, the patient had low blood pressure from the previous evening and was given a 500 mL bolus at night. In the morning, the patient's blood pressure was around the 80s. Patient Coreg was on hold. I discussed this with the senior risk analyst, who recommended giving 1L Bolus. The patient's ECHO was not read then, and I gave 500ml Bolus and advised the nursing team to call jana ashby and request to read the ECHO. Later, ECHO showed a normal ejection fraction of 60-65% and gave another 500ml bolus. I reviewed wound care notes, which reveal stage 3 decubitus ulcer but no signs of infection. Ordered Lactic acid and calcitonin. With normal EF, no signs of sepsis, and no obstructive evidence of PE, I was skeptical about low blood pressure and small pleural effusion on CTA, which was performed on 08/07. I ordered CTA chest, abdomen, and pelvis, which revealed multiple findings, including worsening pleural effusion, anasarca, and fluid collection in the left hemipelvis. spoke to me, raised concerns about the new findings, and offered to perform pleural effusion if the patient is in ICU. I talked to , who agreed to the transfer. After the transfer to ICU ,the patient was intubated.Later in the evening spoke to me and requested to call [facility] for transfer. Again I spoke to her daughter regards goals of care. For now she wanted everything to be done. I called Kacey at 19:04 and waiting for call back. Review of Systems Review of Systems: as per HPI Exam Narrative: General: Patient is awake, alert, in no acute distress. Looks older than her stated age HEENT:? Pupils equal and reactive, sclera is clear, dry oral mucosa Neck:? Supple Respiratory:? Coarse breath sounds bilateral bases, Rt > Lt, no wheezing, decreased air entry at bases Cardiac:? Sinus tachycardia Abdomen:? Soft, nontender, nondistended, hypoactive bowel sounds Extremities:? Bilateral lower extremity edema, palpable pedal pulses, Neuro:? Patient is awake, alert, follows simple commands, nods to questions other than answering questions Skin:? Dry scaly skin on legs bilateral Psych:? Depressed affect Eyes: General: appearance normal, both eyes and all related structures Resp: Other: Cardio: Rate: regular rate Rhythm: regular rhythm GI: Auscultation: normal bowel sounds Skin: General skin exam: normal color Other: some erythema to rt lower extremity, slightly edematous Extrem: Other: some erythema to rt lower extremity, slightly edematous, negative sallie sign Psych: Mental Status: mental status grossly normal Affect: normal affect Objective Data Vital Signs Vital Signs: Vital Signs - 24 hr 08/07/24 18:00 08/07/24 20:00 08/07/24 20:00 Temperature 98.2 F Pulse Rate 105 H 106 H Respiratory Rate 20 Blood Pressure 88/68 L Pulse Oximetry 96 96 Oxygen Delivery Nasal Cannula Oxygen Flow Rate 1 08/07/24 20:00 08/07/24 22:00 08/07/24 22:06 Temperature Pulse Rate 102 H 115 H Respiratory Rate Blood Pressure 83/59 L Pulse Oximetry Oxygen Delivery Oxygen Flow Rate 08/07/24 22:07 08/07/24 22:08 08/07/24 23:45 Temperature 97.6 F Pulse Rate 109 H 115 H Respiratory Rate 18 Blood Pressure 80/60 L 82/56 L Pulse Oximetry 96 Oxygen Delivery Oxygen Flow Rate 08/08/24 00:00 08/08/24 00:00 08/08/24 02:00 Temperature Pulse Rate 115 H 109 H Respiratory Rate Blood Pressure Pulse Oximetry 96 Oxygen Delivery Nasal Cannula Oxygen Flow Rate 1 08/08/24 04:00 08/08/24 04:00 08/08/24 04:00 Temperature 97.9 F Pulse Rate 94 111 H Respiratory Rate 20 Blood Pressure 85/67 L Pulse Oximetry 96 96 Oxygen Delivery Nasal Cannula Oxygen Flow Rate 1 08/08/24 06:00 08/08/24 07:54 08/08/24 08:00 Temperature 97.7 F Pulse Rate 115 H 120 H Respiratory Rate 14 Blood Pressure 86/68 L Pulse Oximetry 96 96 Oxygen Delivery Nasal Cannula Oxygen Flow Rate 2 08/08/24 08:00 08/08/24 09:41 08/08/24 10:00 Temperature Pulse Rate 122 H 114 H Respiratory Rate Blood Pressure 65/50 L Pulse Oximetry Oxygen Delivery Oxygen Flow Rate 08/08/24 10:45 08/08/24 11:29 08/08/24 12:00 Temperature 97.4 F L Pulse Rate 120 H Respiratory Rate 16 Blood Pressure 92/66 L 83/63 L Pulse Oximetry 94 96 Oxygen Delivery Nasal Cannula Oxygen Flow Rate 2 08/08/24 12:00 08/08/24 14:00 08/08/24 16:30 Temperature Pulse Rate 111 H 116 H 115 H Respiratory Rate 26 H Blood Pressure Pulse Oximetry Oxygen Delivery Oxygen Flow Rate 08/08/24 16:30 08/08/24 16:40 08/08/24 16:45 Temperature Pulse Rate 115 H 114 H 112 H Respiratory Rate 26 H Blood Pressure 76/39 L 60/59 L Pulse Oximetry Oxygen Delivery Oxygen Flow Rate 08/08/24 17:03 08/08/24 17:04 08/08/24 17:21 Temperature 94.0 F L Pulse Rate 122 H 122 H 122 H Respiratory Rate 23 H 24 H 23 H Blood Pressure 112/70 Pulse Oximetry Oxygen Delivery Oxygen Flow Rate Intake/Output Intake/Output: Intake & Output 08/05/24 08/06/24 08/07/24 08/08/24 23:59 23:59 23:59 23:59 Intake Total 92.2 910.6 Output Total 250 300 Balance -157.8 610.6 Meds/Results Medications: Active Medications Generic Name Dose Route Start Last Admin Trade Name Freq PRN Reason Stop Dose Admin Acetaminophen 650 mg 08/07/24 10:20 Acetaminophen 325 Mg Tablet PO Q4H PRN Mild Pain (1-3) or Fever Folic Acid 1 mg 08/09/24 09:00 Folic Acid 1 Mg/0.2 Ml Inj IV PUSH QAM [facility] Gabapentin 100 mg 08/07/24 13:00 08/08/24 12:33 Gabapentin 100 Mg Capsule PO 100 mg TID NAYELY Administration Albumin Human 25 gm in 500 mls @ 125 mls/hr 08/08/24 14:07 08/08/24 14:15 Albumin Human 5% IV CONT 08/08/24 18:06 125 mls/hr .Q4H ONE Administration Albumin Human 100 mls @ 60 mls/hr 08/08/24 18:00 Albutein IVPB 08/10/24 01:39 Q6HR NAYELY Cefepime HCl 2 gm in 50 mls @ 100 mls/hr 08/08/24 14:20 08/08/24 17:27 Maxipime 2 Gm/Ns 50 Ml IVPB 100 mls/hr Q8HR NAYELY Administration Doxycycline Hyclate 100 mg in 100 mls @ 100 mls/hr 08/08/24 14:20 08/08/24 17:27 Vibramycin 100 Mg/Ns 100 Ml IVPB 100 mls/hr Q12HR NAYELY Administration Vancomycin HCl 1,500 mg in 500 mls @ 250 mls/hr 08/08/24 16:00 08/08/24 17:28 Vancomycin 1,500 Mg/Ns 500 Ml IVPB 08/08/24 17:59 250 mls/hr ONCE ONE Administration Vancomycin HCl 1,250 mg in 250 mls @ 166.667 mls/hr 08/09/24 04:00 Vancomycin 1,250 Mg/Ns 250 Ml IVPB Q12H NAYELY Norepinephrine Bitartrate 8 mg in 250 mls @ 28.125 mls/hr 08/08/24 15:55 08/08/24 16:45 Levophed 8 Mg/D5w 250 Ml IV CONT 15 mcg/min .Q8H54M NAYELY 28.13 mls/hr Titration Protocol 15 MCG/MIN Sodium Chloride 250 mls @ 30 mls/hr 08/08/24 15:57 08/08/24 17:28 Normal Saline Iv IV CONT 08/09/24 00:16 30 mls/hr .Q8H20M STA Administration Fentanyl Citrate 2,500 mcg in 250 mls @ 5 mls/hr 08/08/24 16:30 08/08/24 17:04 Fentanyl 2,500 Mcg/Ns 250 Ml IV CONT 50 mcg/hr .Q50H NAYELY 5 mls/hr Titration Protocol 50 MCG/HR Midazolam HCl 100 mg in 100 mls @ 2 mls/hr 08/08/24 16:30 08/08/24 17:03 Versed 100 Mg/Ns 100 Ml IV CONT 2 mg/hr .Q50H NAYELY 2 mls/hr Titration Protocol 2 MG/HR Ipratropium [place] 0.5 mg 08/08/24 20:00 Ipratropium Br 0.02% Inh Soln 0.5 Mg/2.5 Ml Vial INHALATION Q6HRT NAYELY Levalbuterol HCl 0.63 mg 08/08/24 20:00 Levalbuterol Neb 1.25 Mg/3 Ml INHALATION Q6HRT [facility] Multi-Ingred Cream/Lotion/Oil/Oint 1 applic 08/08/24 21:00 Mineral Oil/White Petrolatum Ointment EACH EYE Q12HR NAYELY Neomycin/Polymyxin/Bacitracin 1 applic 08/08/24 09:00 08/08/24 09:05 Neomycin/Polymyxin/Bacitracin Ointment 15 Gm Tube TOPICAL 1 applic QAM NAYELY Administration Ondansetron HCl 4 mg 08/08/24 14:31 Ondansetron Inj 4 Mg/2 Ml Vial IV PUSH Q6H PRN Nausea And Vomiting Pantoprazole Sodium 40 mg 08/08/24 21:00 Pantoprazole Sodium Iv 40 Mg Vial IV PUSH Q12HR [facility] Perflutren Lipid Microsphere 0 ml 08/07/24 13:38 Perflutren Lipid Microspheres 1.5 Ml Vial Diluted To 10 Ml Total Volume IV PUSH 08/10/24 13:39 ONCE PRN adequate visualization Protocol Sodium Chloride 10 ml 08/08/24 22:00 Central Line Flush IV PUSH Q8HR [facility] Sodium Chloride 20 ml 08/08/24 15:35 Central Line Flush IV PUSH PRN PRN after blood draws Radiology Results: ITS Impressions Chest X-Ray 08/07/24 08:09 IMPRESSION: 1. Airspace opacities at the lung bases, consistent with atelectasis versus pneumonia. 2. Small pleural effusions. 3. Emphysema. Chest CTA 08/07/24 10:03 IMPRESSION: 1. Acute right upper lobe pulmonary embolus. I called this result to Dr. Pike. 2. Mild pulmonary edema with small pleural effusions. 3. Moderate emphysema. 4. Perihepatic ascites. Venous Doppler Study 08/07/24 18:54 IMPRESSION: Bilateral deep vein thrombosis. Chest/Abdomen/Pelvis CTA 08/08/24 11:59 IMPRESSION: Worsening of the bilateral pleural effusions when compared with previous days examination. Stable pulmonary embolus. Interval development of consolidation of the entirety of the right middle and right lower lobes. Interval development of significant anasarca. Fluid collection originating within the left hemipelvis, of uncertain origin. Massive bladder distention for which urgent decompression is recommended. Cholelithiasis, as well as gallbladder distention. ADDENDUM: 08/08/24 [id number] Further evaluation of the fluid collection within the left hemipelvis: This likely represents a hematoma with layering blood, likely originating in the left psoas musculature. Of note, the patient did receive a catheter for venous access in the left groin, and this was performed AFTER the CTA of the abdomen and pelvis, and should not be considered as direct causation. Labs Labs: Laboratory Results - last 24 hr 08/08/24 08/08/24 08/08/24 01:09 04:19 09:00 WBC 11.6 H RBC 2.19 L Hgb 7.5 L Hct 21.9 L MCV 100.0 MCH 34.2 H MCHC 34.2 RDW 14.1 Plt Count 318 MPV 9.8 Immature Gran % (Auto) 0.5 Neut % (Auto) 70.9 Lymph % (Auto) 22.2 Ocean % (Auto) 6.1 Eos % (Auto) 0.0 Baso % (Auto) 0.3 Lymph # (Auto) 2.58 Ocean # (Auto) 0.7 H Eos # (Auto) 0.0 Baso # (Auto) 0.0 Abs Immat Gran (auto) 0.06 H Absolute Neuts (auto) 8.2 H Absolute Nucleated RBC 0.020 H Nucleated RBC % 0.2 APTT > 200.0 H* > 200.0 H* Puncture Site ABG pH ABG pCO2 ABG pO2 ABG PO2/FiO2 Ratio ABG HCO3 A-a Gradient Total Hemoglobin O2 Delivery Device O2 Liters/Min Minute Volume Vent Rate Vent Mode FiO2 Tidal Volume PEEP Peak Inspir Pressure Pressure Support Sodium 131 L Potassium 3.3 L Chloride 101 Carbon Dioxide 23 Anion Gap 7 BUN 8 Creatinine 0.35 L Estim Creat Clear Calc 118 Estimated GFR > 60 Glucose 120 H Lactic Acid Calcium 6.8 L Troponin I Procalcitonin Random Cortisol Nasal MRSA (PCR) Blood Type Antibody Screen Crossmatch 08/08/24 08/08/24 08/08/24 11:25 11:26 15:00 WBC RBC Hgb Hct MCV MCH MCHC RDW Plt Count MPV Immature Gran % (Auto) Neut % (Auto) Lymph % (Auto) Ocean % (Auto) Eos % (Auto) Baso % (Auto) Lymph # (Auto) Ocean # (Auto) Eos # (Auto) Baso # (Auto) Abs Immat Gran (auto) Absolute Neuts (auto) Absolute Nucleated RBC Nucleated RBC % APTT Puncture Site ABG pH ABG pCO2 ABG pO2 ABG PO2/FiO2 Ratio ABG HCO3 A-a Gradient Total Hemoglobin O2 Delivery Device O2 Liters/Min Minute Volume Vent Rate Vent Mode FiO2 Tidal Volume PEEP Peak Inspir Pressure Pressure Support Sodium Potassium Chloride Carbon Dioxide Anion Gap BUN Creatinine Estim Creat Clear Calc Estimated GFR Glucose Lactic Acid 5.4 H* Calcium Troponin I < 0.012 Procalcitonin 3.0 Random Cortisol 68.30 Nasal MRSA (PCR) Not detected Blood Type Antibody Screen Crossmatch 08/08/24 08/08/24 16:01 16:05 WBC RBC Hgb Hct MCV MCH MCHC RDW Plt Count MPV Immature Gran % (Auto) Neut % (Auto) Lymph % (Auto) Ocean % (Auto) Eos % (Auto) Baso % (Auto) Lymph # (Auto) Ocean # (Auto) Eos # (Auto) Baso # (Auto) Abs Immat Gran (auto) Absolute Neuts (auto) Absolute Nucleated RBC Nucleated RBC % APTT Puncture Site Artline ABG pH 7.417 ABG pCO2 29.3 L ABG pO2 397.1 H ABG PO2/FiO2 Ratio 3.97 ABG HCO3 18.5 L A-a Gradient 286.6 Total Hemoglobin < 4.3 L* O2 Delivery Device Ventilator O2 Liters/Min Not Reportable Minute Volume Not Reportable Vent Rate 24 Vent Mode Cmv FiO2 100 Tidal Volume 480 PEEP 8 Peak Inspir Pressure Not Reportable Pressure Support Not Reportable Sodium Potassium Chloride Carbon Dioxide Anion Gap BUN Creatinine Estim Creat Clear Calc Estimated GFR Glucose Lactic Acid Calcium Troponin I Procalcitonin Random Cortisol Nasal MRSA (PCR) Blood Type B Positive Antibody Screen Negative Crossmatch See Detail Hospitalist MIPS Advance Care Plan I have confirmed that the patient's Advanced Care Plan is present, code status is documented, or surrogate decision maker is listed in patient medical record.: Yes Medication Reconciliation I have utilized all available resources to obtain, update and review the patients current medications (includes all prescriptions, OTC, herbals, cannabis, and nutritional supplements).: Yes
[2024-08-08 18:03] LABS: Hemoglobin 4.3 g/dL (12.0-15.0)
[2024-08-08 18:04] LABS: Hematocrit 13.3 % (37.0-47.0)
[2024-08-08 18:07] LABS: Albumin Level 1.4 g/dL (3.5-5.1); Alkaline Phosphatase 86 U/L (38-126); Anion Gap 16 mmol/L (4-12); Bilirubin,Total 1.1 mg/dL (0.2-1.3); Blood Urea Nitrogen 8 mg/dL (7-17); Calcium 6.2 mg/dL (8.4-10.2); Carbon Dioxide 15 mmol/L (22-30); Chloride 104 mmol/L (98-107); Estimated CRCL calculation 104 ml/min; Estimated Glomerular Filt Rate > 60; Glucose 175 mg/dL (65-110); Potassium 4.7 mmol/L (3.4-5.0); Sodium 135 mmol/L (137-145)
[2024-08-08 18:19] LABS: Alanine Aminotransferase 44 U/L (6-35); Aspartate Amino Transferase 116 U/L (14-36)
[2024-08-08 18:45] LABS: Partial Thromboplastin Time > 200.0 Seconds (22.3-36.8)
--- NOTE | 2024-08-08 19:03 | P.CONS_ITS ---
Assessment and Plan Assessment and plan (1) DVT (deep venous thrombosis): Code(s): I82.409 - Acute embolism and thrombosis of unspecified deep veins of unspecified lower extremity Status: Acute Assessment and Plan: Initially treated with heparin drip. Heparin drip has now been stopped due to left retroperitoneal bleed and hematoma. Ultimately the patient might benefit for have an IVC filter placed if she can be systemically anticoagulated due to risk of bleeding. (2) Pulmonary embolism: Code(s): I26.99 - Other pulmonary embolism without acute cor pulmonale Status: Acute Assessment and Plan: Treated with heparin drip. However the aperture pad to be stopped due to bleeding. Management as per shipping and receiving supervisor. (3) Cholelithiasis: Code(s): K80.20 - Calculus of gallbladder without cholecystitis without obstruction Status: Acute Assessment and Plan: Cholelithiasis noted on CTA. Gallbladder distention is also noted. However no obvious evidence of acute cholecystitis seen. The gallbladder may be 1 possible source of sepsis but I would seem to think that pulmonary would be more likely reason for sepsis given her pleural effusions and acute respiratory failure. At this time the patient is not acute candidate for a cholecystitis. If the gallbladder needs to be decompressed because it may be a source of sepsis then I would recommend image guided placement of a cholecystostomy tube. (4) Acute hypoxic respiratory failure: Code(s): J96.01 - Acute respiratory failure with hypoxia Status: Acute Assessment and Plan: Patient has been intubated. Supportive care as per hospitalist service. (5) Severe sepsis: Code(s): A41.9 - Sepsis, unspecified organism; R65.20 - Severe sepsis without septic shock Status: Acute Assessment and Plan: Patient on broad-spectrum IV antibiotics. (6) Anemia: Code(s): D64.9 - Anemia, unspecified Status: Acute Assessment and Plan: Patient's hemoglobin is 4. She is getting blood transfusions at this time. At least part of this acute drop in hemoglobin is due to the left retroperitoneal hematoma. There is no active extravasation noted on the CT a this morning. However if further evaluation for possible ongoing left retroperitoneal bleed is needed she will need to be transferred to a tertiary care center in [place] which has Interventional Radiology keep ability for embolizing the retroperitoneal bleeding. HPI Data of Consult Date/Time: 08/08/24 19:03 Requesting Physician: Chaparro Oakley MD Primary Care Provider: UNKNOWN,DOCTOR Consult Narrative Reason for consult: Abnormal gallbladder imaging, sepsis, acute respiratory failure, Narrative: Madison Youssef is a 64 year old female who is been intubated in the intensive care unit this afternoon after having acute respiratory failure while undergoing attempted thoracentesis of a large right pleural effusion. She is also noted on CTA of the chest abdomen pelvis earlier today to have a pulmonary embolus as well as a left retroperitoneal hematoma measuring about 9cm in diameter. Active extravasation was seen into the hematoma at the time of the scan. Also noted is a dilated gallbladder with gallstones and the patient has a picture [place] [address] per hemoglobin is 4. She is currently getting transfused packed red blood cells in intensive care unit. She was previously placed on heparin drip to a pulmonary embolus but after finding the left retroperitoneal hematoma the heparin drip has been stopped. The patient's daughter is at the bedside and the patient is still a full code. I have been asked to evaluate comment on the gallbladder is a possible source of her sepsis. Review of Systems 2 Review of Systems: The remainder of the review of systems to include constitutional, HEENT, cardiovascular, respiratory, GI, , integumentary, musculoskeletal, endocrine, immunologic, hematologic, psychiatric, and neurologic are all negative except for which is mentioned above in the HPI. FOR[facility]LY [facility] Past Medical History Medical History DVT prophylaxis Family History Family History Father Diabetes mellitus Mother Diabetes mellitus Social History Social History Smoking status: Former smoker Tobacco type: cigarettes Second hand tobacco smoke exposure: Yes Alcohol intake: current Drinks per week: 0 Substance use: never Substance use type: does not use Do You Feel Safe in your Home?: Yes Lack of Transportation: YES Lack of Food: Never True Current Housing: I Have Housing Concerned About Future Housing: No Difficulty Paying Gas/Electric Bills: No Difficulty Paying for Meds: No Currently Unemployed: No Education: Associate Degree Difficulty w/ Childcare or Family Care: No Spiritual care concerns: No Meds Home Medications and Allergies Home Medications ?Medication ?Instructions ?Recorded ?Confirmed ?Type acetaminophen 325 mg tablet (Aphen) 650 mg PO ONCE PRN fever or pain 08/07/24 08/07/24 History arginine (L-arginine) 1 ea PO .3 x a day at meals wound 08/07/24 08/07/24 History to left posterior thigh aspirin 81 mg chewable tablet 81 mg PO DAILY 08/07/24 08/07/24 History (Children's Aspirin) carvedilol 6.25 mg tablet 6.25 mg PO BID 08/07/24 08/07/24 History cetirizine 10 mg capsule (All Day 10 mg PO DAILY 08/07/24 08/07/24 History Allergy (cetirizine)) folic acid 1 mg tablet 1 mg PO DAILY 08/07/24 08/07/24 History gabapentin 100 mg capsule 100 mg PO TID polyneuropathy 08/07/24 08/07/24 History hydrocodone 5 mg-acetaminophen 325 1 tablet PO Q4H PRN pain 08/07/24 08/07/24 History mg tablet ondansetron 4 mg disintegrating 4 mg PO Q6H PRN nausea/vomiting 08/07/24 08/07/24 History tablet Allergies Allergy/AdvReac Type Severity Reaction Status Date / Time No Known Allergies Allergy Verified 08/07/24 07:37 Vital Signs Vital Signs - 24 hr 08/07/24 20:00 08/07/24 20:00 08/07/24 20:00 Temperature 36.8 C Pulse Rate 106 H 102 H Respiratory Rate 20 Blood Pressure 88/68 L Pulse Oximetry 96 96 Oxygen Delivery Nasal Cannula Oxygen Flow Rate 1 Fraction of Inspired Oxygen 08/07/24 22:00 08/07/24 22:06 08/07/24 22:07 Temperature Pulse Rate 115 H Respiratory Rate Blood Pressure 83/59 L 80/60 L Pulse Oximetry Oxygen Delivery Oxygen Flow Rate Fraction of Inspired Oxygen 08/07/24 22:08 08/07/24 23:45 08/08/24 00:00 Temperature 36.4 C Pulse Rate 109 H 115 H Respiratory Rate 18 Blood Pressure 82/56 L Pulse Oximetry 96 96 Oxygen Delivery Nasal Cannula Oxygen Flow Rate 1 Fraction of Inspired Oxygen 08/08/24 00:00 08/08/24 02:00 08/08/24 04:00 Temperature Pulse Rate 115 H 109 H 94 Respiratory Rate Blood Pressure Pulse Oximetry Oxygen Delivery Oxygen Flow Rate Fraction of Inspired Oxygen 08/08/24 04:00 08/08/24 04:00 08/08/24 06:00 Temperature 36.6 C Pulse Rate 111 H 115 H Respiratory Rate 20 Blood Pressure 85/67 L Pulse Oximetry 96 96 Oxygen Delivery Nasal Cannula Oxygen Flow Rate 1 Fraction of Inspired Oxygen 08/08/24 07:54 08/08/24 08:00 08/08/24 08:00 Temperature 36.5 C Pulse Rate 120 H 122 H Respiratory Rate 14 Blood Pressure 86/68 L Pulse Oximetry 96 96 Oxygen Delivery Nasal Cannula Oxygen Flow Rate 2 Fraction of Inspired Oxygen 08/08/24 09:41 08/08/24 10:00 08/08/24 10:45 Temperature Pulse Rate 114 H Respiratory Rate Blood Pressure 65/50 L 92/66 L Pulse Oximetry Oxygen Delivery Oxygen Flow Rate Fraction of Inspired Oxygen 08/08/24 11:29 08/08/24 12:00 08/08/24 12:00 Temperature 36.3 C L Pulse Rate 120 H 111 H Respiratory Rate 16 Blood Pressure 83/63 L Pulse Oximetry 94 96 Oxygen Delivery Nasal Cannula Oxygen Flow Rate 2 Fraction of Inspired Oxygen 08/08/24 14:00 08/08/24 16:00 08/08/24 16:00 Temperature 35.1 C L Pulse Rate 116 H 116 H 116 H Respiratory Rate 15 Blood Pressure 81/62 L Pulse Oximetry Oxygen Delivery Oxygen Flow Rate Fraction of Inspired Oxygen 08/08/24 16:20 08/08/24 16:30 08/08/24 16:30 Temperature Pulse Rate 128 H 115 H 115 H Respiratory Rate 26 H 26 H Blood Pressure Pulse Oximetry Oxygen Delivery Mechanical Ventilation Oxygen Flow Rate Fraction of Inspired Oxygen 08/08/24 16:40 08/08/24 16:45 08/08/24 17:00 Temperature Pulse Rate 114 H 112 H 121 H Respiratory Rate Blood Pressure 76/39 L 60/59 L Pulse Oximetry Oxygen Delivery Mechanical Ventilation Oxygen Flow Rate Fraction of Inspired Oxygen 60 08/08/24 17:03 08/08/24 17:04 08/08/24 17:21 Temperature 34.4 C L Pulse Rate 122 H 122 H 122 H Respiratory Rate 23 H 24 H 23 H Blood Pressure 112/70 Pulse Oximetry Oxygen Delivery Oxygen Flow Rate Fraction of Inspired Oxygen 08/08/24 17:36 08/08/24 18:00 08/08/24 18:36 Temperature 34.5 C L 34.3 C L Pulse Rate 122 H 120 H 122 H Respiratory Rate 22 H 22 H Blood Pressure 117/91 H 128/89 Pulse Oximetry Oxygen Delivery Oxygen Flow Rate Fraction of Inspired Oxygen Exam 2 Const: Other: Patient is currently intubated and sedated. Resp: Other: Decreased breath sounds bilaterally. Coarse breath sounds. Cardio: Other: Normal rhythm. GI: Other: Abdomen is mildly distended. Unable to get a accurate abdominal exam due to the patient's sedation. Neuro: Other: Patient intubated sedated. Extrem: General: normal to inspection Psych: Other: Patient intubated sedated. Results Labs 08/08/24 17:37 08/08/24 17:36 Labs: Short CBC 08/08/24 08/08/24 Range/Units 04:19 17:37 WBC 11.6 H (4.5-10.0) K/mm3 Hgb 7.5 L 4.3 L* D (12.0-15.0) g/dL Hct 21.9 L 13.3 L* (37.0-47.0) % Plt Count 318 (150-375) k/mm3 BMP 08/08/24 08/08/24 04:19 17:36 Sodium 131 L 135 L Potassium 3.3 L 4.7 Chloride 101 104 Carbon Dioxide 23 15 L BUN 8 8 Creatinine 0.35 L 0.41 L Glucose 120 H 175 H Calcium 6.8 L 6.2 L Cardiac Enzymes 08/08/24 Range/Units 11:25 Troponin I < 0.012 (0.000-0.034) ng/mL Liver Function 08/08/24 Range/Units 17:36 Total Bilirubin 1.1 (0.2-1.3) mg/dL AST 116 H (14-36) U/L ALT 44 H (6-35) U/L Alkaline Phosphatase 86 (38-126) U/L Albumin 1.4 L (3.5-5.1) g/dL Imaging Radiologist's impression: CT Scan Report Signed with Addenda Patient: Madison Youssef : 1960 MR#: [id number] Age: 64 Acct:[id number] [facility] ADM Date: 08/07/24Attending Dr: Chaparro Oakley M.D. Ordering Physician: Chaparro Oakley MD Date of Service: 08/08/24 Procedure(s): CTA chest abdomen pelvis Accession Number(s): [id number] cc: Chaparro Oakley MD; UNKNOWN,DOCTOR~ ADDENDUMFurther evaluation of the fluid collection within the left hemipelvis: This likely represents a hematoma with layering blood, likely originating in the left psoas musculature. Of note, the patient did receive a catheter for venous access in the left groin, and this was performed AFTER the CTA of the abdomen and pelvis, and should not be considered as direct causation. Addendum Dictated By: Violet Marx MD Addendum Signed By: <Electronically signed by Violet Marx MD in [place]> 08/08/241631 Addendum Cosigned By: DD/ TD/TT: / CLINICAL INDICATION: Worsening hypoxia with known right upper lobe pulmonary embolus. COMPARISON: 08/07/2024. TECHNIQUE: Computed tomographic angiography (CTA) of the chest was performed, along with multiple contiguous axial images of the abdomen and pelvis with 100 mL Omnipaque-350 intravenous contrast. The dose-length product was 621.45 mGy- cm. Maximum intensity projection 3D-reconstructions of the aorta and other arteries were constructed by the technologist on a separate workstation. FINDINGS/OBSERVATIONS: PULMONARY ARTERIES: Redemonstration of a filling defect within the posterior segmental branch of the right upper lobe pulmonary artery. The truncus anterior is patent. No additional filling defects are demonstrated. The main pulmonary artery is not enlarged. THORACIC AORTA: No aneurysmal dilatation or dissection is present. The great vessels are intact LUNGS: Redemonstration of bilateral pleural effusions, with interval increase of the right-sided pleural effusion, when compared with prior. Interval development of consolidation of the right lower lobe, with air bronchograms. Panlobular emphysematous disease is redemonstrated. Decreased lung volume within the right hemithorax (secondary to increased pleural effusion), available for perfusion. MEDIASTINUM: No morphologically suspicious or pathologically enlarged lymph nodes are identified within the mediastinum or bilateral axilla. BONES OF THE CHEST: No acute fracture. No significant degenerative disease. No lytic or blastic lesions. HEART: The heart is of normal size, without pericardial effusion. LIVER: Perihepatic fluid is now identified, increased from previous days examination. The liver is not enlarged measuring 17 cm in longitudinal dimension. GALLBLADDER AND BILIARY SYSTEM: Interval development of gallbladder distention, (not included on the previous examination) with calcified layering stones PANCREAS: The pancreas enhances homogeneously without ductal dilatation. SPLEEN: The spleen enhances homogeneously and is not enlarged measuring 8 cm in longitudinal dimension. KIDNEYS: The bilateral kidneys enhance symmetrically without hydronephrosis or renal calculi. ADRENAL GLANDS: Unremarkable. GASTROINTESTINAL TRACT: Fecal stasis distending the rectum. VASCULATURE: No aneurysmal dilatation or significant stenosis. The inferior vena cava is slit like consistent with severe hypovolemia. LYMPH NODES: No pathologically enlarged or morphologically suspicious lymph nodes within the retroperitoneum or at the root of the mesentery. PELVIC STRUCTURES: The bladder is massively distended extending almost to the level of the umbilicus. Likely originating within the left hemipelvis is a fluid collection measuring 4.6 x 8.0 x 9.5 cm (anterior to posterior x medial to lateral x cranial to caudal dimension). BODY WALL AND MUSCULOSKELETAL: Interval development of significant anasarca, when compared with previous days examination. Degenerative disease within the lumbosacral spine. IMPRESSION: Worsening of the bilateral pleural effusions when compared with previous days examination. Stable pulmonary embolus. Interval development of consolidation of the entirety of the right middle and right lower lobes. Interval development of significant anasarca. Fluid collection originating within the left hemipelvis, of uncertain origin. Massive bladder distention for which urgent decompression is recommended. Cholelithiasis, as well as gallbladder distention. Reviewed, dictated and finalized at location A. Please be advised this is a medical document. It is intended for [id number] communication. It is written in medical language and may contain unfamiliar abbreviations or verbiage. Medical documents are intended to carry relevant information, facts as evident, and the clinical opinion of the practitioner at the time of the encounter. This report may have been done utilizing a voice recognition system. Attempts have been made to correct errors. However, there may be uncorrected grammatical, spelling, and recognition errors present. The file time of this note does not necessarily represent the time of service. Dictated By: Violet Marx MD 08/08/24 1159 Signed By: <Electronically signed by Violet Marx MD in [place]>
[2024-08-08 19:12] LABS: Lactic Acid Reflex 15.7 mmol/L (0.7-2.0)
[2024-08-08 19:33] LABS: Influenza A QL RT-PCR Negative (Negative); Influenza B QL RT-PCR Negative (Negative); RSV RNA, RT-PCR Negative (Negative); SARS-CoV-2 RNA PCR Positive (Negative)
[2024-08-08] MEDS: ALBUMIN HUMAN 25% 25 GM/100 ML 100 ML IVPB (20:19)
[2024-08-08 20:23] LABS: Alveolar/Arterial O2 Gradient 281.7 mmHg; Base Excess ABG -9.6 mEq/l (+/-2.0); Fractional Inspired Oxygen 60 %; HCO3 ABG 14.6 mEq/l (22.0-26.0); Methemoglobin ABG 0.4 %THb (0-1.5); Oxygen Content ABG 9.9 %vol (16.0-22.0); Oxygen Saturation ABG 98.3 % (95.0-100.0); Oxyhemoglobin 96.7 % THb (90.0-100.0); PCO2 ABG 25.5 mmHg (35.0-45.0); PO2 ABG 118.1 mmHg (80.0-100.0); PO2 FiO2 Ratio Arterial Blood 1.97 %; Reduced Hemoglobin 1.9 %THb (0-5.0); pH ABG 7.376 (7.350-7.450)
[2024-08-08 20:25] LABS: Site Drawn ARTLINE; Total Hemoglobin 7.1 g/dL (12.0-18.0)
[2024-08-08 20:26] LABS: Arterial Blood Gas PEEP 8 cmH2O; Arterial Blood Gas Tidal Volume 450 ml; Arterial Blood Gas Vent Mode CMV; Arterial Blood Gas Ventilator rate 22 /MIN; Device VENTILATOR
[2024-08-08 21:04] LABS: Hematocrit 20.1 % (37.0-47.0); Hemoglobin 6.8 g/dL (12.0-15.0)
[2024-08-08] MEDS: MINERAL OIL/WHITE PETROLATUM OINTMENT 1 APPLIC EACH EYE (21:09)
[2024-08-08] MEDS: PANTOPRAZOLE SODIUM IV 40 MG VIAL IV PUSH (21:09)
[2024-08-08 21:24] LABS: Lactic Acid Reflex 10.6 mmol/L (0.7-2.0)
--- NOTE | 2024-08-08 23:53 | PCRCNOTE ---
Window of time for administration has passed. See next scheduled administration.
[2024-08-09] VITALS: BP 94/63; PULSE 106; PULSE 108; RESP 22; TEMP 36.9; O2SAT 100
[2024-08-09 02:00] VITALS: PULSE 103; PULSE 106; RESP 22
--- NOTE | 2024-08-18 18:45 | PM.TDS ---
Transfer Discharge Sum: Prov Provider Date of admission: 08/07/24 10:20 Primary care physician: UNKNOWN,DOCTOR Admitting clinician: Chaparro Oakley MD Consults: 08/07/24 Consult to Dietitian Routine Reason for Consult:: Pt needing more education on her diet. 08/08/24 Consult to Physician Routine Comment: Consulting Provider: Reza Frost Reason for consultation: Fluid Collection Originating in L Hemipelvis unknown origin Has provider been notified: No 08/08/24 13:03 Consult to Physician Routine Comment: Carole Consulting Provider: Clotilde Lam call center support consultant/MD group to consult: Boiler Tenders Supervisor Reason for consultation: Pleural effusion Has provider been notified: Yes Consult to Physician Routine Comment: Spoke with Anneliese in Radiology Consulting Provider: Chaparro Oakley call center support consultant/ group to consult: Intervention Radiologist- Reason for consultation: Pleural Effusion Has provider been notified: Yes 08/08/24 15:42 Consult to Physician Routine Comment: spoke with Dr. Frost @1547(,) Consulting Provider: Reza Frost call center support consultant/ group to consult: Surgery Reason for consultation: Cholelithiasis, dilated gallbladder Has provider been notified: Yes DS: Admitting Diagnosis Discharge Date 08/09/24 Admitting Diagnosis Pulmonary Embolism DS: Discharge Diagnosis Discharge Diagnosis (1) DVT (deep venous thrombosis): Code(s): I82.409 - Acute embolism and thrombosis of unspecified deep veins of unspecified lower extremity Status: Acute (2) Pulmonary embolism: Code(s): I26.99 - Other pulmonary embolism without acute cor pulmonale Status: Acute (3) Anemia: Code(s): D64.9 - Anemia, unspecified Status: Acute (4) Severe sepsis: Code(s): A41.9 - Sepsis, unspecified organism; R65.20 - Severe sepsis without septic shock Status: Acute (5) Acute hypoxic respiratory failure: Code(s): J96.01 - Acute respiratory failure with hypoxia Status: Acute Transfer Discharge Sum: Med Medications Active and Home Medications: Home Medications acetaminophen 325 mg tablet (Aphen) 650 mg PO ONCE PRN fever or pain 08/07/24 [History Confirmed 08/07/24] carvedilol 6.25 mg tablet 6.25 mg PO BID 08/07/24 [History Confirmed 08/07/24] cetirizine 10 mg capsule (All Day Allergy (cetirizine)) 10 mg PO DAILY 08/07/24 [History Confirmed 08/07/24] folic acid 1 mg tablet 1 mg PO DAILY 08/07/24 [History Confirmed 08/07/24] gabapentin 100 mg capsule 100 mg PO TID polyneuropathy 08/07/24 [History Confirmed 08/07/24] hydrocodone 5 mg-acetaminophen 325 mg tablet 1 tablet PO Q4H PRN pain 08/07/24 [History Confirmed 08/07/24] ondansetron 4 mg disintegrating tablet 4 mg PO Q6H PRN nausea/vomiting 08/07/24 [History Confirmed 08/07/24] amlodipine 10 mg tablet 10 mg PO DAILY 08/09/24 [History Confirmed 08/09/24] clopidogrel 75 mg tablet (Plavix) 75 mg PO DAILY 08/09/24 [History Confirmed 08/09/24] escitalopram oxalate 10 mg tablet 10 mg PO DAILY 08/09/24 [History Confirmed 08/09/24] hydroxyzine pamoate 25 mg capsule (Vistaril) 25 mg PO QID PRN pain (scale score 1-3) 08/09/24 [History Confirmed 08/09/24] magnesium hydroxide 400 mg/5 mL oral suspension (Dulcolax (magnesium hydroxide)) 30 ml PO DAILY PRN constipation 08/09/24 [History Confirmed 08/09/24] metoprolol tartrate 50 mg tablet 50 mg PO DAILY 08/09/24 [History Confirmed 08/09/24] nitroglycerin 0.4 mg sublingual tablet 0.4 mg sublingual Q5M PRN chest pain 08/09/24 [History Confirmed 08/09/24] pravastatin 20 mg tablet 20 mg PO HS 08/09/24 [History Confirmed 08/09/24] quetiapine 25 mg tablet 12.5 mg PO DAILY 08/09/24 [History Confirmed 08/09/24] quetiapine 25 mg tablet 25 mg PO HS 08/09/24 [History Confirmed 08/09/24] Transfer Discharge Sum: Hosp Hospital Course Hospital course: Madison Youssef is a 64 year old female and admitted due to a pulmonary embolism. The patient was later diagnosed with bilateral DVT. Today, I assumed the care. I had a very long conversation with the daughter today. The patient was recently admitted to [facility] due to leg weakness and later transferred to [facility] for rehab. Of note, the patient has a remote history of CVA and stent placement in the heart. When I assumed the care, the patient had low blood pressure from the previous evening and was given a 500 mL bolus at night. In the morning, the patient's blood pressure was around the 80s. Patient Coreg was on hold. I discussed this with the table assembler, who recommended giving 1L Bolus. The patient's ECHO was not read then, and I gave 500ml Bolus and advised the nursing team to call cardiology and request to read the ECHO. Later, ECHO showed a normal ejection fraction of 60-65% and gave another 500ml bolus. I reviewed wound care notes, which reveal stage 3 decubitus ulcer but no signs of infection. Ordered Lactic acid and calcitonin. With normal EF, no signs of sepsis, and no obstructive evidence of PE, I was skeptical about low blood pressure and small pleural effusion on CTA, which was performed on 08/07. I ordered CTA chest, abdomen, and pelvis, which revealed multiple findings, including worsening pleural effusion, anasarca, and fluid collection in the left hemipelvis. spoke to me, raised concerns about the new findings, and offered to perform pleural effusion if the patient is in ICU. I talked to , who agreed to the transfer. After the transfer to ICU ,the patient was intubated.Later in the evening spoke to me and requested to call [facility] for transfer. Again I spoke to her daughter regards goals of care and had an extensive conversation. For now she wanted everything to be done. I called [facility] at 19:04 and accepted by table assembler Dr.Speck Mcallister. Time Spent with Patient Time attestation: Total time spent providing and/or coordinating transfer services:120 minutes Exam Narrative: General: Patient is awake, alert, in no acute distress. Looks older than her stated age HEENT:? Pupils equal and reactive, sclera is clear, dry oral mucosa Neck:? Supple Respiratory:? Coarse breath sounds bilateral bases, Rt > Lt, no wheezing, decreased air entry at bases Cardiac:? Sinus tachycardia Abdomen:? Soft, nontender, nondistended, hypoactive bowel sounds Extremities:? Bilateral lower extremity edema, palpable pedal pulses, Neuro:? Patient is awake, alert, follows simple commands, nods to questions other than answering questions Skin:? Dry scaly skin on legs bilateral Psych:? Depressed affect Const: General: comfortable Eyes: General: appearance normal, both eyes and all related structures Resp: Effort & Inspection: normal respiratory effort Other: Cardio: Rate: regular rate Rhythm: regular rhythm GI: Auscultation: normal bowel sounds Skin: General skin exam: normal color Other: some erythema to rt lower extremity, slightly edematous Extrem: Other: some erythema to rt lower extremity, slightly edematous, negative sallie sign Psych: Mental Status: mental status grossly normal Affect: normal affect
== END 2024-08-09 02:30 | disposition short-term general hospital (02) | DRG 871 ==
LOC: ANHED 10:20 → ANHIMU 11:56 → ANHICU 08-08 13:45
PROVIDERS: Internal Medicine; Nurse Practitioner; Admitting Provider General Practice; Emergency Provider Emergency Medicine; Visit Provider General Practice
DX: A41.9 Sepsis, unspecified organism (principal); I26.99 Other pulmonary embolism without acute cor pulmonale; L89.153 Pressure ulcer of sacral region, stage 3; J96.01 Acute respiratory failure with hypoxia; K68.3 Retroperitoneal hematoma; J90 Pleural effusion, not elsewhere classified; I82.443 Acute embolism and thrombosis of tibial vein, bilateral; R65.20 Severe sepsis without septic shock; J43.9 Emphysema, unspecified; K80.20 Calculus of gallbladder without cholecystitis without obstruction; D64.9 Anemia, unspecified; I25.10 Atherosclerotic heart disease of native coronary artery without angina pectoris; G62.9 Polyneuropathy, unspecified; Z86.73 Personal history of transient ischemic attack (TIA), and cerebral infarction without residual deficits; Z95.5 Presence of coronary angioplasty implant and graft; Z86.16 Personal history of COVID-19; Z87.891 Personal history of nicotine dependence
CPT/HCPCS: 36415; 36430; 36569; 36600; 71045; 71275; 74174; 80048; 80053; 82375; 82533; 82805; 83050; 83605; 83735; 83880; 84145; 84484; 85014; 85018; 85025; 85610; 85730; 86850; 86900; 86901; 86923; 87040; 87637; 87641; 92610; 93005; 93306; 93970; 94002; 96374; 99285; A9270; C1751; J0171; J0692; J1644; J1940; J2250; J2470; J3010; J3370; J3480; J7030; J7040; J7050; P9016; P9045; P9047; Q9967